=== PATIENT | male | born 1965 | race Caucasian/White ===

== ENCOUNTER 2016-05-13 15:00 | Inpatient (IN) | payer OTHER ==
[2016-05-13 14:40] VITALS: BP 152/91; PULSE 88; RESP 18; TEMP 97.4; O2SAT 95
[~2016-05-13 15:00] MED LIST: AMBI5TAB PO; AMLO10 PO; BACI500O2 TOP; BISO10TA2 PO; CLON.1 PO; CYCL1TAB29 PO; DILA2TAB2 PO; DILA4TAB2 PO; DOCU1CAP39 PO; ENAL1.25 IV PUSH; ENOX30P SQ; FAMO20TA2 PO; HEPAF100P IVF; HYDR-3366 PO; HYDR1INJ IV PUSH; IPRASOL INH; LACT PO; LYRI75CA PO; METO-309 PO; NSFLUSH5 IVF; NYST10007 TOPICAL; ONDA4INJ2 IV; SENN8.6T15 PO
[2016-05-13] MEDS ORDERED: SODIUM CHLORIDE 0.9% FLUSH 5 ML FLUSH IVF PRN ×2 (15:45→16:30)
[2016-05-13] MEDS ORDERED: ENALAPRILAT 1.25 MG/ML VIAL IV PRN (15:45)
[2016-05-13] MEDS ORDERED: ONDANSETRON HCL 4 MG/2 ML VIAL IV PRN (15:45)
[2016-05-13] MEDS ORDERED: SENNOSIDES 8.6 MG TAB PO PRN (16:00)
[2016-05-13] MEDS ORDERED: HEPARIN SOD PF 100 UNITS/ML VIAL IVF PRN (16:00)
[2016-05-13] MEDS ORDERED: RESP: ALBUTEROL 2.5 MG/IPRATROPIUM 0.5 MG NEB (PRN) NEB (16:15)
[2016-05-13] MEDS ORDERED: PILL SPLITTER OTHER PRN ×2 (16:15→18:45)
[2016-05-13] MEDS ORDERED: ACETAMINOPHEN/HYDROcodone 325 MG/7.5 MG TAB PO PRN (17:15)
[2016-05-13] MEDS ORDERED: HYDROmorphone HCL 4 MG TAB PO PRN (17:15)
[2016-05-13] MEDS ORDERED: oxyCODONE/ACETAMINOPHEN 7.5 MG/325 MG TAB PO PRN (17:30)
[2016-05-13] MEDS: LACTOBACILLUS ACIDOPHILUS TAB PO SCH (18:00)
[2016-05-13 20:00] VITALS: BP 159/90; PULSE 104; RESP 17; TEMP 98; O2SAT 98
[2016-05-13] MEDS: DOCUSATE SODIUM 100 MG CAP PO SCH (20:05)
[2016-05-13] MEDS: FAMOTIDINE 20 MG TAB PO SCH (20:05)
[2016-05-13] MEDS: PREGABALIN 75 MG CAP PO SCH (20:05)
[2016-05-13] MEDS: ENOXAPARIN SODIUM 30 MG/0.3 ML SYRINGE SQ SCH (20:05)
[2016-05-13] MEDS: METOPROLOL TARTRATE 50 MG TAB PO SCH (20:06)
[2016-05-13] MEDS: oxyCODONE/ACETAMINOPHEN 7.5 MG/325 MG TAB PO SCH (20:06)
[2016-05-13] MEDS: METHOCARBAMOL 500 MG TAB PO SCH (20:06)
[2016-05-13] MEDS: NYSTATIN 100,000 U/GM PWD 15 GM BTL TOPICAL SCH (20:08)
[2016-05-13] MEDS: CYCLOBENZAPRINE HCL 10 MG TAB PO SCH ×2 (20:09→23:19)
[2016-05-13] MEDS: cloNIDine HCL 0.1 MG TAB PO SCH (20:11)
[2016-05-13] MEDS ORDERED: DOCUSATE SODIUM 100 MG CAP PO SCH (21:00)
[2016-05-14] VITALS: BP 140/91; PULSE 85; RESP 17; TEMP 97.9; O2SAT 94
[2016-05-14] MEDS: METHOCARBAMOL 500 MG TAB PO SCH ×6 (00:07→20:14)
[2016-05-14] MEDS: oxyCODONE/ACETAMINOPHEN 7.5 MG/325 MG TAB PO SCH ×6 (00:08→20:14)
[2016-05-14 04:00] VITALS: BP 176/95; PULSE 84; RESP 17; TEMP 96.7; O2SAT 98
[2016-05-14 04:46] LABS: AUTOMATED NEUTROPHIL # 4.7 TH/MM3 (1.8-7.7); BASOPHIL # 0.1 TH/MM3 (0-0.2); BASOPHIL % 0.9 % (0.0-2.0); EOSINOPHIL # 0.2 TH/MM3 (0-0.4); EOSINOPHIL % 3.4 % (0.0-4.0); HEMATOCRIT 27.8 % (39.0-51.0); HEMO FLAGS DIFF FINAL; LYMPH % 22.7 % (9.0-44.0); LYMPHOCYTE # 1.6 TH/MM3 (1.0-4.8); MEAN CELL VOLUME 86.8 FL (80.0-100.0); MEAN CORPUSCULAR HEMOGLOBIN 29.5 PG (27.0-34.0); MONO % 7.9 % (0.0-8.0); NEUT % 65.1 % (16.0-70.0); PLATELET COUNT 379 TH/MM3 (150-450); RED CELL DISTRIBUTION WIDTH 14.3 % (11.6-17.2); WHITE BLOOD COUNT 7.2 TH/MM3 (4.0-11.0)
[2016-05-14 05:13] LABS: ALKALINE PHOSPHATASE 110 U/L (45-117); ALT (GPT) 18 U/L (12-78); ANION GAP 9 MEQ/L (5-15); AST (GOT) 19 U/L (15-37); BICARBONATE 29.2 MEQ/L (21.0-32.0); BLOOD UREA NITROGEN 17 MG/DL (7-18); CHLORIDE 101 MEQ/L (98-107); GLOMERULAR FILTRATION RATE 87 ML/MIN (>89); POTASSIUM 3.9 MEQ/L (3.5-5.1); SODIUM (NA) 139 MEQ/L (136-145); TOTAL BILIRUBIN ADULT 0.4 MG/DL (0.2-1.0)
--- NOTE | 2016-05-14 06:47 | PD.ORT.PN ---
Subjective Subjective Remarks s/p right tibial plateau ORIF s/p right femur IMN s/p left ankle ORIF s/p- left calcaneus ORIF with free flap s/p Ligamentous repair left knee with exfix s/p ligamentous repair with external fixator left elbow doing well. states pain controlled. no complaints. Objective Vitals Vital Signs Date Time Temp Pulse Resp B/P Pulse Ox O2 Delivery O2 Flow Rate FiO2 05/14/16 04:00 96.7 84 17 176/95 98 05/14/16 00:00 97.9 85 17 140/91 94 05/13/16 20:00 98.0 104 17 159/90 98 05/13/16 14:40 97.4 88 18 152/91 95 I/O 05/13/16 05/13/16 05/13/16 05/14/16 05/14/16 05/14/16 07:00 15:00 23:00 07:00 15:00 23:00 Intake Total 840 ml Output Total 960 ml Balance -120 ml Intake Oral 840 ml Output Urine Total 960 ml # Bowel Movements 0 Result Diagram: 05/14/16 0435 05/14/16 0435 Objective Remarks LUE: +elbow exfix. incision clean and dry. intact. NVI distally. LLE: +knee exfix. knee incision healed well. lateral ankle incision healed well and sutures in place. medial skin flap in place and appears healthy. moderate hematoma superiorly. ankle/foot everted. RLE: incisions healed well. nvi distally. + knee brace Assessment & Plan Assessment and Plan 1) s/p right femur IMN - 5w2d (04/07/16) 2) s/p right tibial plateau ORIF - 5w (04/09/16) 3) s/p ligamentous repair with external fixator left elbow - 4w4d (04/12/16) 4) s/p left ankle ORIF - 4w2d (04/14/16) s/p Ligamentous repair left knee with exfix 5) s/p- left calcaneus ORIF with free flap -NWB BLE -will unlock elbow exfix today to arrange for ROM of elbow -will begin daily dressing changes of left calcaneus with bacitracin/xeroform -surgery today for application of exfix to left ankle/foot -sign consents Diego Cochran May 14, 2016 06:47
[2016-05-14] MEDS ORDERED: SODIUM CHLORID 0.9% 500 ML IV SCH (07:15)
[2016-05-14] MEDS ORDERED: INSULIN HUMAN REGULAR 1,000 UNITS/10 ML VIAL SQ PRN (07:15)
[2016-05-14] MEDS ORDERED: METOPROLOL TARTRATE 25 MG TAB PO PRN (07:15)
[2016-05-14] MEDS: HYDROmorphone HCL PF 1 MG/ML VIAL IV PRN ×2 (07:29→17:06)
[2016-05-14 07:48] VITALS: BP 142/82; PULSE 87; RESP 17; TEMP 97.6; O2SAT 97
[2016-05-14] MEDS: BISOPROLOL FUMARATE 5 MG TAB PO SCH (08:26)
[2016-05-14] MEDS: HYDROCHLOROTHIAZIDE 25 MG TAB PO SCH (08:26)
[2016-05-14] MEDS: LACTATED RINGER'S 1000 ML IV SCH (08:31)
[2016-05-14] MEDS: ENOXAPARIN SODIUM 30 MG/0.3 ML SYRINGE SQ SCH ×2 (09:00→21:48)
[2016-05-14] MEDS: LACTOBACILLUS ACIDOPHILUS TAB PO SCH ×3 (09:00→15:58)
[2016-05-14] MEDS: NYSTATIN 100,000 U/GM PWD 15 GM BTL TOPICAL SCH ×2 (09:00→21:00)
[2016-05-14] MEDS: SODIUM CHLORIDE 0.9% FLUSH 5 ML FLUSH IVF SCH (09:00)
[2016-05-14] MEDS: DOCUSATE SODIUM 100 MG CAP PO SCH ×2 (09:00→21:48)
[2016-05-14] MEDS: PREGABALIN 75 MG CAP PO SCH ×2 (09:00→21:48)
[2016-05-14] MEDS ORDERED: NON-FORMULARY DRUG (Bisoprolol-Hydrochlorothiazide 1 TAB) PO SCH (09:00)
[2016-05-14] MEDS: FAMOTIDINE 20 MG TAB PO SCH ×2 (09:00→21:48)
[2016-05-14] MEDS: METOPROLOL TARTRATE 50 MG TAB PO SCH ×2 (09:00→21:48)
[2016-05-14] MEDS ORDERED: HEPARIN SOD PF 100 UNITS/ML VIAL IVF SCH (09:00)
[2016-05-14] MEDS: cloNIDine HCL 0.1 MG TAB PO SCH ×2 (09:00→21:48)
[2016-05-14] MEDS ORDERED: ceFAZolin 2 GM PREMIX 50 ML ONE (11:12)
[2016-05-14] MEDS ORDERED: SODIUM CHLORIDE 0.9% INJ 100 ML ONE (11:12)
[2016-05-14] MEDS ORDERED: VANCOMYCIN HCL 1000 MG VIAL ONE (11:12)
[2016-05-14] MEDS ORDERED: FAMOTIDINE 20 MG/2 ML VIAL ONE (11:13)
[2016-05-14] MEDS ORDERED: MIDAZOLAM HCL 2 MG/2 ML VIAL ONE (11:13)
[2016-05-14] MEDS ORDERED: HYDR-3366 PO (11:19)
[2016-05-14] MEDS ORDERED: XARE10TA PO (11:19)
[2016-05-14] MEDS ORDERED: GENTAMICIN SULFATE 80 MG/2 ML VIAL ONE (11:25)
--- NOTE | 2016-05-14 11:28 | HHI.PR ---
Subjective Subjective Notes Pain controlled. Asking when he can go home. Objective Vitals/I&O Vital Signs Date Time Temp Pulse Resp B/P Pulse Ox O2 Delivery O2 Flow Rate FiO2 05/14/16 07:48 97.6 87 17 142/82 97 Labs Laboratory Tests Test 05/14/16 04:35 White Blood Count 7.2 Red Blood Count 3.20 Hemoglobin 9.4 Hematocrit 27.8 Mean Corpuscular Volume 86.8 Mean Corpuscular Hemoglobin 29.5 Mean Corpuscular Hemoglobin 34.0 Concent Red Cell Distribution Width 14.3 Platelet Count 379 Mean Platelet Volume 7.3 Neutrophils (%) (Auto) 65.1 Lymphocytes (%) (Auto) 22.7 Monocytes (%) (Auto) 7.9 Eosinophils (%) (Auto) 3.4 Basophils (%) (Auto) 0.9 Neutrophils # (Auto) 4.7 Lymphocytes # (Auto) 1.6 Monocytes # (Auto) 0.6 Eosinophils # (Auto) 0.2 Basophils # (Auto) 0.1 CBC Comment DIFF FINAL Differential Comment Sodium Level 139 Potassium Level 3.9 Chloride Level 101 Carbon Dioxide Level 29.2 Anion Gap 9 Blood Urea Nitrogen 17 Creatinine 0.92 Estimat Glomerular Filtration 87 Rate Random Glucose 99 Calcium Level 8.8 Total Bilirubin 0.4 Aspartate Amino Transf 19 (AST/SGOT) Alanine Aminotransferase 18 (ALT/SGPT) Alkaline Phosphatase 110 Total Protein 7.4 Albumin 2.6 Narrative Exam GENERAL: 51 year old well-nourished, well-developed male lying in bed. SKIN: Warm and dry. HEAD: Normocephalic. ENT: No nasal bleeding or discharge. Mucous membranes pink and moist. NECK: Trachea midline. No JVD. CARDIOVASCULAR: Regular rate and rhythm. RESPIRATORY: VENT: No accessory muscle use. Lungs are clear to auscultation. Breath sounds equal bilaterally. GASTROINTESTINAL: Abdomen soft, round, nondistended, nontender. + BS. MUSCULOSKELETAL: Extremities without cyanosis, generalized edema noted. LEFT Elbow Ex -fx in place, improved ROM since screws loosened. Ex-fix to LEFT leg, with medial skin flap in place. RIGHT knee immobilizer. MAEW. + peripheral pulses, + sensation, good cap refill. NEUROLOGICAL: A&O, pleasant and cooperative. A/P Assessment and Plan INJURIES: Scalp lac LEFT elbow dislocation Pubic symphysis diathesis Bilateral SI joint separation RIGHT femur fx RIGHT tib-fib fx RIGHT ankle degloving wound LEFT open femur fx LEFT calcaneus fx LEFT ankle DEGLOVING injury 04/07: Closed reduction of LEFT elbow 04/09: IM nailing RIGHT femur Closed reduction and splint RIGHT tibia fx I&D LEFT open femur fx w/ wound vac I&D LEFT calcaneal fx w/ wound vac 04/12: LEFT elbow EX fix placement I&D w/wound vac LEFT calcaneus and LEFT thigh 04/14: I&D and Ligament repair to LEFT knee ORIF LEFT ankle I&D LEFT calcaneus I&D LEFT distal femur fx Application of wound vac to LEFT foot 04/19: I&D LEFT calcaneus and foot with wound vac change 04/26: LEFT elbow manipulation with ex-fix revision I&D LEFT calcaneus with wound vac change 04/30: I&D LEFT calcaneus with wound vac change 05/06: LEFT calcaneus ORIF with free flap at [facility] Diet: Regular, Low residue diet. Pulm: IS at bedside and encouraged to use. Pain management: Percocet, Lyrica, Dilaudid IV for breakthrough. Pain controlled , 0/10 at this time. Activity: BR. (NWB LUE; NWB BLE) PT and OT evaluating. GI: Pepcid Bowel regimen: Colace. Sennakot. DVT: Plexi-Pulses, Lovenox SQ. PICC 05/01. Case management consulted for discharge planning when Ortho clears. Patient requests to go home, states he has multiple DME and home health resources that will assist with care. He does not want to go to a SNF. Vu denied patient. Attending Statement Patient doing very well post the reconstruction of the left heel with microvascular pedicle graft Patient will be ready for discharge home once we can make arrangements for hospital bed at home and physical therapy as patient will need The exam, history, and the medical decision-making described in the above note were completed with the assistance of the mid-level provider. I reviewed and agree with the findings presented. I attest that I had a [id number] encounter with the patient on the same day, and personally performed and documented my assessment and findings in the medical record. Evens Baca May 14, 2016 11:28 Pj Mas MD May 15, 2016 12:48
[2016-05-14] MEDS ORDERED: BACITRACIN TOP OINT 15 GM TUBE ONE (11:50)
[2016-05-14] MEDS: LACTATED RINGER'S 1000 ML INJ 1,000 ML IV SCH ×2 (11:55→21:50)
[2016-05-14] MEDS ORDERED: PROPOFOL 200 MG/20 ML AMP IV ONE (12:00)
[2016-05-14] MEDS ORDERED: ONDANSETRON HCL 4 MG/2 ML VIAL IV PUSH ONE (12:00)
--- NOTE | 2016-05-14 12:11 | PD.OP ---
cc: Gwyn Russell MD Operative Report Date of Surgery: May 14, 2016 Preoperative Diagnosis: Open left ankle fracture dislocation Postoperative Diagnosis: Procedure: External fixation of left ankle Anesthesia: Gen. Surgeon: Gwyn Russell Oil Well Perforator Operator(s): TAWANA Jaimes PA-C The surgical procedure was assisted by my physician clinical trials assistant. My P.A. presence was necessary throughout this case for the manipulation and positioning of the surgical extremity. My P.A. was assisting me throughout the duration of this procedure. The skill set of a physician clinical trials assistant was medically necessary to complete this procedure. During the surgical case the neurosurgical nurse was working at the back table and the physician clinical trials assistant was directly assisting me. Operation and Findings: This patient sustained an injury resulting in unstable open fractures of the distal tibia and fibula previously treated with open reduction internal fixation. He essentially had a free tissue transfer flap on left ankle. Patient cannot be placed into a splint or boot because of the free tissue transfer. Patient was noted to be developing a contracture of his ankle. Risk and benefits of surgery were discussed in depth with patient and informed consent was confirmed. Surgical site was marked. Patient was brought to operating room and placed on the OR table. Patient was given IV sedation and GETA. Patient received IV antibiotics and timeout procedure was performed. Operative leg was prepped with alcohol followed by Hibiclens and draped in the usual sterile fashion.resulting in left tibia-fibula fractures. Timeout procedure was performed. The procedure began with placement of external fixation pins. Two percutaneous incisions were made. Pin sites were pre-drilled. Pins were placed in the first and fifth metatarsals. An external fixator was now constructed. The external fixator was connected to the pre-existing left leg external fixator bars. Fluoroscopy was used to confirm appropriate pin placement. Next attention was turned to traction with manipulation of the leg. The ankle was manipulated under fluoroscopy. Excellent reduction was achieved and the external fixator was tightened. Sterile dressings were applied. Next the left elbow external fixator was evaluated. Patient has a hinged external fixator on the elbow. The hinge was unlocked to allow for motion.The patient was awakened and transferred to Recovery in stable condition. Gwyn Russell MD May 14, 2016 12:11
[2016-05-14] MEDS ORDERED: fentaNYL CITRATE 250 MCG/5 ML AMP ONE (12:19)
[2016-05-14] MEDS ORDERED: DO NOT ADM ANY ANTICOAGULANT DRUGS XX PRN (12:30)
--- NOTE | 2016-05-14 12:38 | RADRPT ---
EXAM DATE/TIME: 05/14/2016 11:44 [place] COMPARISON: ANKLE LEFT LIMITED (AP&LAT), April 14, 2016, 8:37. INDICATIONS : Surgical repair left ankle MEDICAL HISTORY : None. SURGICAL HISTORY : None. ENCOUNTER: Subsequent ACUITY: 1 week PAIN SCORE: Non-responsive. LOCATION: Left ANKLE FINDINGS: There are postsurgical changes with operative reduction and internal fixation of the previously seen fracture. The alignment is anatomic. CONCLUSION: Postsurgical changes as above. Lazaro Drake MD on May 14, 2016 at 12:36 Board Certified Radiologist. This report was verified electronically.
[2016-05-14] MEDS ORDERED: *morphine SULFATE 8 MG/ML PERIprocedure ONLY ONE (12:57)
[2016-05-14] MEDS: CYCLOBENZAPRINE HCL 10 MG TAB PO SCH ×2 (14:00→21:55)
[2016-05-14 16:00] VITALS: BP 146/90; PULSE 82; RESP 16; TEMP 97; O2SAT 98
[2016-05-14 20:00] VITALS: BP 143/81; PULSE 83; RESP 16; TEMP 96.9; O2SAT 97
[2016-05-14] MEDS: BACITRACIN TOP OINT 15 GM TUBE TOP SCH (23:00)
[2016-05-15] VITALS: BP 135/87; PULSE 82; RESP 17; TEMP 97.6; O2SAT 98
[2016-05-15] MEDS: METHOCARBAMOL 500 MG TAB PO SCH ×6 (00:10→20:20)
[2016-05-15] MEDS: oxyCODONE/ACETAMINOPHEN 7.5 MG/325 MG TAB PO SCH ×6 (00:12→20:21)
[2016-05-15] MEDS: CYCLOBENZAPRINE HCL 10 MG TAB PO SCH ×2 (05:01→07:55)
[2016-05-15 05:54] LABS: HEMATOCRIT 26.5 % (39.0-51.0); REVIEW FLAG FINAL
[2016-05-15] MEDS: LACTATED RINGER'S 1000 ML IV SCH (07:15)
[2016-05-15 07:39] VITALS: BP 153/88; PULSE 76; RESP 17; TEMP 97.5; O2SAT 97
[2016-05-15] MEDS: LACTATED RINGER'S 1000 ML INJ 1,000 ML IV SCH (07:55)
[2016-05-15] MEDS: METOPROLOL TARTRATE 50 MG TAB PO SCH ×2 (08:11→20:45)
[2016-05-15] MEDS: DOCUSATE SODIUM 100 MG CAP PO SCH ×2 (08:11→20:20)
[2016-05-15] MEDS: FAMOTIDINE 20 MG TAB PO SCH ×2 (08:11→20:20)
[2016-05-15] MEDS: cloNIDine HCL 0.1 MG TAB PO SCH ×2 (08:11→20:45)
[2016-05-15] MEDS: BISOPROLOL FUMARATE 5 MG TAB PO SCH (08:13)
[2016-05-15] MEDS: HYDROCHLOROTHIAZIDE 25 MG TAB PO SCH (08:13)
[2016-05-15] MEDS: LACTOBACILLUS ACIDOPHILUS TAB PO SCH ×3 (08:15→18:50)
[2016-05-15] MEDS: PREGABALIN 75 MG CAP PO SCH ×2 (08:15→20:21)
[2016-05-15] MEDS: SODIUM CHLORIDE 0.9% FLUSH 5 ML FLUSH IVF SCH (08:17)
[2016-05-15] MEDS: ENOXAPARIN SODIUM 30 MG/0.3 ML SYRINGE SQ SCH ×2 (08:18→20:20)
[2016-05-15] MEDS: BACITRACIN TOP OINT 15 GM TUBE TOP SCH ×2 (08:18→20:56)
[2016-05-15] MEDS: NYSTATIN 100,000 U/GM PWD 15 GM BTL TOPICAL SCH ×2 (08:19→20:55)
[2016-05-15] MEDS: SENNOSIDES 8.6 MG TAB PO SCH (09:00)
--- NOTE | 2016-05-15 09:12 | PD.ORT.PN ---
Subjective Subjective Remarks Fairly comfortable. No significant pain. Lying in bed. Status post free flap, left ankle and external fixator modifications yesterday Objective Vitals Vital Signs Date Time Temp Pulse Resp B/P Pulse Ox O2 Delivery O2 Flow Rate FiO2 05/15/16 07:39 97.5 76 17 153/88 97 05/15/16 00:00 97.6 82 17 135/87 98 05/14/16 20:00 96.9 83 16 143/81 97 05/14/16 16:00 97.0 82 16 146/90 98 05/14/16 13:15 98.1 78 14 159/88 100 Nasal Cannula 2 05/14/16 13:00 78 14 151/89 99 Nasal Cannula 2 05/14/16 12:45 78 14 146/84 98 Nasal Cannula 4 05/14/16 12:30 78 14 150/79 100 Nasal Cannula 4 05/14/16 12:15 77 14 102/65 99 Nasal Cannula 4 05/14/16 12:10 98.1 79 14 100/70 98 Nasal Cannula 4 I/O 05/14/16 05/14/16 05/14/16 05/15/16 05/15/16 05/15/16 07:00 15:00 23:00 07:00 15:00 23:00 Intake Total 360 ml 600 ml 1369 ml 240 ml Output Total 700 ml 5 ml 600 ml Balance -340 ml 595 ml 1369 ml -360 ml Intake Oral 360 ml 360 ml 240 ml IV Total 1009 ml Other 600 ml Output Urine Total 700 ml 600 ml Other 5 ml # Voids 1 # Bowel Movements 0 0 0 Result Diagram: 05/15/16 0516 05/14/16 0435 Objective Remarks LUE: +elbow exfix. incision clean and dry. intact. NVI distally. Adjustment made yesterday allows some limited motion of the left elbow. I'll pain LLE: +knee exfix. knee incision healed well. lateral ankle incision healed well and sutures in place. medial skin flap in place and appears healthy. Mild hematoma superiorly. ankle/foot everted. RLE: incisions healed well. nvi distally. + knee brace Assessment & Plan Assessment and Plan 1) s/p right femur IMN - 38d (04/07/16) 2) s/p right tibial plateau ORIF - 36d (04/09/16) 3) s/p ligamentous repair with external fixator left elbow -33d (04/12/16) 4) s/p left ankle ORIF - 31d(04/14/16) s/p Ligamentous repair left knee with exfix 5) s/p- left calcaneus ORIF with free flap 6) s/p left ankle ex-fix, adjust left elbow X fix, POD #1 -NWB BLE ROM of elbow daily dressing changes of left calcaneus with bacitracin/xeroform Lovenox. Discharge planning Stable orthopedically X-rays look stable Juwan Raphael MD May 15, 2016 09:12
[2016-05-15] MEDS ORDERED: ZOLPIDEM TARTRATE 10 MG TAB PO PRN (12:00)
[2016-05-15 12:05] VITALS: BP 145/81; PULSE 75; RESP 17; TEMP 97.3; O2SAT 96
--- NOTE | 2016-05-15 12:40 | HHI.PR ---
Subjective Subjective Notes Pain level 0. Difficulty sleeping. Objective Vitals/I&O Vital Signs Date Time Temp Pulse Resp B/P Pulse Ox O2 Delivery O2 Flow Rate FiO2 05/15/16 07:39 97.5 76 17 153/88 97 05/14/16 13:15 Nasal Cannula 2 Labs Laboratory Tests Test 05/15/16 05:16 Hemoglobin 8.9 Hematocrit 26.5 Narrative Exam GENERAL: 51 year old well-nourished, well-developed male lying in bed. SKIN: Warm and dry. HEAD: Normocephalic. ENT: No nasal bleeding or discharge. Mucous membranes pink and moist. NECK: Trachea midline. No JVD. CARDIOVASCULAR: Regular rate and rhythm. RESPIRATORY: VENT: No accessory muscle use. Lungs are clear to auscultation. Breath sounds equal bilaterally. GASTROINTESTINAL: Abdomen soft, round, nondistended, nontender. + BS. MUSCULOSKELETAL: Extremities without cyanosis, generalized edema noted. LEFT Elbow Ex -fx in place, improved ROM since screws loosened. Ex-fix to LEFT leg, with medial skin flap in place. RIGHT knee immobilizer. MAEW. + peripheral pulses, + sensation, good cap refill. NEUROLOGICAL: A&O, pleasant and cooperative. A/P Assessment and Plan INJURIES: Scalp lac LEFT elbow dislocation Pubic symphysis diathesis Bilateral SI joint separation RIGHT femur fx RIGHT tib-fib fx RIGHT ankle degloving wound LEFT open femur fx LEFT calcaneus fx LEFT ankle DEGLOVING injury 04/07: Closed reduction of LEFT elbow 04/09: IM nailing RIGHT femur Closed reduction and splint RIGHT tibia fx I&D LEFT open femur fx w/ wound vac I&D LEFT calcaneal fx w/ wound vac 04/12: LEFT elbow EX fix placement I&D w/wound vac LEFT calcaneus and LEFT thigh 04/14: I&D and Ligament repair to LEFT knee ORIF LEFT ankle I&D LEFT calcaneus I&D LEFT distal femur fx Application of wound vac to LEFT foot 04/19: I&D LEFT calcaneus and foot with wound vac change 04/26: LEFT elbow manipulation with ex-fix revision I&D LEFT calcaneus with wound vac change 04/30: I&D LEFT calcaneus with wound vac change 05/06: LEFT calcaneus ORIF with free flap at [facility] Diet: Regular, Low residue diet. Pulm: IS at bedside and encouraged to use. Pain management: Percocet, Lyrica, Dilaudid IV for breakthrough. Pain controlled , 0/10 at this time. Activity: BR. (NWB LUE; NWB BLE) PT and OT evaluating. GI: Pepcid Bowel regimen: Colace. Sennakot. DVT: Plexi-Pulses, Lovenox SQ. PICC /. Dressing to left heel removed and evaluated. Skin flap appears healthy and graft site to right thigh is healing well. Wound orders: Cleanse heel with soap and water daily and apply Xeroform and wrap with dry Kerlix. Ambien added for insomnia. Case management consulted for discharge planning when Ortho clears. Patient requests to go home, states he has multiple DME and home health resources that will assist with care. He does not want to go to a SNF. Vu denied patient. Evens Baca May 15, 2016 12:40
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
[2016-05-15] MEDS: HYDROmorphone HCL PF 1 MG/ML VIAL IV PRN ×2 (13:20→19:40)
[2016-05-15 15:55] VITALS: BP 160/85; PULSE 82; RESP 17; TEMP 97; O2SAT 96
[2016-05-15 20:00] VITALS: BP 144/87; PULSE 78; RESP 18; TEMP 96.4; O2SAT 96
[2016-05-16] VITALS: BP 145/82; PULSE 77; RESP 18; TEMP 97.6; O2SAT 100
[2016-05-16] MEDS: METHOCARBAMOL 500 MG TAB PO SCH ×6 (00:10→20:25)
[2016-05-16] MEDS: oxyCODONE/ACETAMINOPHEN 7.5 MG/325 MG TAB PO SCH ×6 (00:13→20:25)
[2016-05-16 04:00] VITALS: BP 167/91; PULSE 76; RESP 18; TEMP 97.6; O2SAT 98
[2016-05-16 07:12] VITALS: BP 171/96; PULSE 84; RESP 18; TEMP 97.8; O2SAT 97
[2016-05-16] MEDS: ENOXAPARIN SODIUM 30 MG/0.3 ML SYRINGE SQ SCH ×2 (07:50→20:24)
[2016-05-16] MEDS: METOPROLOL TARTRATE 50 MG TAB PO SCH ×2 (07:50→20:24)
[2016-05-16] MEDS: HYDROCHLOROTHIAZIDE 25 MG TAB PO SCH (07:51)
[2016-05-16] MEDS: cloNIDine HCL 0.1 MG TAB PO SCH ×2 (07:52→20:24)
[2016-05-16] MEDS: PREGABALIN 75 MG CAP PO SCH ×2 (07:52→20:24)
[2016-05-16] MEDS: FAMOTIDINE 20 MG TAB PO SCH ×2 (07:52→20:24)
[2016-05-16] MEDS: LACTOBACILLUS ACIDOPHILUS TAB PO SCH ×3 (07:52→17:31)
[2016-05-16] MEDS: SENNOSIDES 8.6 MG TAB PO SCH (07:52)
[2016-05-16] MEDS: BISOPROLOL FUMARATE 5 MG TAB PO SCH (07:53)
[2016-05-16] MEDS: DOCUSATE SODIUM 100 MG CAP PO SCH ×2 (08:02→20:24)
[2016-05-16] MEDS: SODIUM CHLORIDE 0.9% FLUSH 5 ML FLUSH IVF SCH (09:00)
[2016-05-16] MEDS: NYSTATIN 100,000 U/GM PWD 15 GM BTL TOPICAL SCH ×2 (09:00→21:00)
[2016-05-16] MEDS: BACITRACIN TOP OINT 15 GM TUBE TOP SCH ×2 (09:00→21:00)
[2016-05-16 12:15] VITALS: BP 129/76; PULSE 89; RESP 17; TEMP 97.8; O2SAT 97
--- NOTE | 2016-05-16 12:23 | HHI.PR ---
Subjective Subjective Notes Feeling well. Awaiting Ortho's determination on when patient can go home. Objective Vitals/I&O Vital Signs Date Time Temp Pulse Resp B/P Pulse Ox O2 Delivery O2 Flow Rate FiO2 05/16/16 07:12 97.8 84 18 171/96 97 05/14/16 13:15 Nasal Cannula 2 Narrative Exam GENERAL: 51 year old well-nourished, well-developed male lying in bed. SKIN: Warm and dry. HEAD: Normocephalic. ENT: No nasal bleeding or discharge. Mucous membranes pink and moist. NECK: Trachea midline. No JVD. CARDIOVASCULAR: Regular rate and rhythm. RESPIRATORY: VENT: No accessory muscle use. Lungs are clear to auscultation. Breath sounds equal bilaterally. GASTROINTESTINAL: Abdomen soft, round, nondistended, nontender. + BS. MUSCULOSKELETAL: Extremities without cyanosis, generalized edema noted. LEFT Elbow Ex -fx in place, improved ROM since screws loosened. Ex-fix to LEFT leg, with medial skin flap in place. RIGHT knee immobilizer. MAEW. + peripheral pulses, + sensation, good cap refill. NEUROLOGICAL: A&O, pleasant and cooperative. A/P Assessment and Plan INJURIES: Scalp lac LEFT elbow dislocation Pubic symphysis diathesis Bilateral SI joint separation RIGHT femur fx RIGHT tib-fib fx RIGHT ankle degloving wound LEFT open femur fx LEFT calcaneus fx LEFT ankle DEGLOVING injury 04/07: Closed reduction of LEFT elbow 04/09: IM nailing RIGHT femur Closed reduction and splint RIGHT tibia fx I&D LEFT open femur fx w/ wound vac I&D LEFT calcaneal fx w/ wound vac 04/12: LEFT elbow EX fix placement I&D w/wound vac LEFT calcaneus and LEFT thigh 04/14: I&D and Ligament repair to LEFT knee ORIF LEFT ankle I&D LEFT calcaneus I&D LEFT distal femur fx Application of wound vac to LEFT foot 04/19: I&D LEFT calcaneus and foot with wound vac change 04/26: LEFT elbow manipulation with ex-fix revision I&D LEFT calcaneus with wound vac change 04/30: I&D LEFT calcaneus with wound vac change 05/06: LEFT calcaneus ORIF with free flap at [facility] Diet: Regular, Low residue diet. Pulm: IS at bedside and encouraged to use. Pain management: Percocet, Lyrica, Dilaudid IV for breakthrough. Ambien for insomnia. Activity: BR. (NWB LUE; NWB BLE) PT and OT evaluating. GI: Pepcid Bowel regimen: Colace. Sennakot. DVT: Plexi-Pulses, Lovenox SQ. PICC 05/01. Dressing to left heel removed and evaluated. Skin flap appears healthy and graft site to right thigh is healing well. Wound orders: Cleanse heel with soap and water daily and apply Xeroform and wrap with dry Kerlix. Case management consulted for discharge planning when Ortho clears. Patient requests to go home, states he has multiple DME and home health resources that will assist with care. He does not want to go to a SNF. Vu denied patient. Attending Statement The exam, history, and the medical decision-making described in the above note were completed with the assistance of the mid-level provider. I reviewed and agree with the findings presented. I attest that I had a [id number] encounter with the patient on the same day, and personally performed and documented my assessment and findings in the medical record. Evens Baca May 16, 2016 12:23 Pj Mas MD May 18, 2016 15:40
[2016-05-16 15:50] VITALS: BP 147/74; PULSE 87; RESP 18; TEMP 97.8; O2SAT 96
[2016-05-16] MEDS: HYDROmorphone HCL PF 1 MG/ML VIAL IV PRN (17:29)
[2016-05-16 20:00] VITALS: BP 143/84; PULSE 80; RESP 18; TEMP 98.9; O2SAT 96
[2016-05-17] VITALS: BP 148/79; PULSE 77; RESP 18; TEMP 98.9; O2SAT 95
[2016-05-17] MEDS: METHOCARBAMOL 500 MG TAB PO SCH ×6 (00:25→20:11)
[2016-05-17] MEDS: oxyCODONE/ACETAMINOPHEN 7.5 MG/325 MG TAB PO SCH ×6 (00:25→20:11)
[2016-05-17 08:00] VITALS: BP 137/85; PULSE 77; RESP 16; TEMP 97.8; O2SAT 97
[2016-05-17] MEDS ORDERED: TRANMIS2 (08:25)
[2016-05-17] MEDS ORDERED: MISC-163 (08:25)
[2016-05-17] MEDS ORDERED: WHEEMIS3 (08:26)
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
[2016-05-17] MEDS: FAMOTIDINE 20 MG TAB PO SCH ×2 (08:51→20:12)
[2016-05-17] MEDS: PREGABALIN 75 MG CAP PO SCH ×2 (08:51→20:09)
[2016-05-17] MEDS: LACTOBACILLUS ACIDOPHILUS TAB PO SCH ×3 (08:51→17:38)
[2016-05-17] MEDS: DOCUSATE SODIUM 100 MG CAP PO SCH ×2 (08:51→20:12)
[2016-05-17] MEDS: ENOXAPARIN SODIUM 30 MG/0.3 ML SYRINGE SQ SCH ×2 (08:51→20:12)
[2016-05-17] MEDS: BISOPROLOL FUMARATE 5 MG TAB PO SCH (08:51)
[2016-05-17] MEDS: HYDROCHLOROTHIAZIDE 25 MG TAB PO SCH (08:52)
[2016-05-17] MEDS: METOPROLOL TARTRATE 50 MG TAB PO SCH ×2 (08:52→20:09)
[2016-05-17] MEDS: SENNOSIDES 8.6 MG TAB PO SCH (08:53)
[2016-05-17] MEDS: SODIUM CHLORIDE 0.9% FLUSH 5 ML FLUSH IVF SCH (08:54)
[2016-05-17] MEDS: BACITRACIN TOP OINT 15 GM TUBE TOP SCH ×2 (08:54→20:14)
[2016-05-17] MEDS: NYSTATIN 100,000 U/GM PWD 15 GM BTL TOPICAL SCH ×2 (08:54→20:14)
[2016-05-17] MEDS: cloNIDine HCL 0.1 MG TAB PO SCH ×2 (09:00→20:11)
[2016-05-17 12:00] VITALS: BP 134/79; PULSE 76; RESP 16; TEMP 96.6; O2SAT 96
--- NOTE | 2016-05-17 12:51 | PD.ORT.PN ---
Subjective Subjective Remarks pain under control. Objective Vitals Vital Signs Date Time Temp Pulse Resp B/P Pulse Ox O2 Delivery O2 Flow Rate FiO2 05/17/16 08:00 97.8 77 16 137/85 97 05/17/16 00:00 98.9 77 18 148/79 95 05/16/16 20:00 98.9 80 18 143/84 96 05/16/16 15:50 97.8 87 18 147/74 96 I/O 05/16/16 05/16/16 05/16/16 05/17/16 05/17/16 05/17/16 07:00 15:00 23:00 07:00 15:00 23:00 Intake Total 480 ml 1200 ml 480 ml 240 ml Output Total 400 ml 750 ml Balance 80 ml 1200 ml 480 ml -510 ml Intake Oral 480 ml 1200 ml 480 ml 240 ml Output Urine Total 400 ml 750 ml # Voids 5 2 # Bowel Movements 0 1 0 0 Result Diagram: 05/15/16 0516 05/14/16 0435 Objective Remarks LUE: +elbow exfix. incision clean and dry. intact. NVI distally. Adjustment made yesterday allows some limited motion of the left elbow. LLE: +knee exfix. knee incision healed well. lateral ankle incision healed well and sutures in place. medial skin flap in place and appears healthy. Mild hematoma superiorly. ankle/foot everted. RLE: incisions healed well. nvi distally. + knee brace Assessment & Plan Assessment and Plan 1) s/p right femur IMN - 38d (04/07/16) 2) s/p right tibial plateau ORIF - 36d (04/09/16) 3) s/p ligamentous repair with external fixator left elbow -33d (04/12/16) 4) s/p left ankle ORIF - 31d(04/14/16) s/p Ligamentous repair left knee with exfix 5) s/p- left calcaneus ORIF with free flap 6) s/p left ankle ex-fix, adjust left elbow X fix, POD #1 -NWB BLE ROM of elbow daily dressing changes of left calcaneus with bacitracin/xeroform Lovenox. Discharge planning Stable orthopedically - cleared for d/c X-rays look stable -f/up dr. cabrales 2-3 weeks -f/up plastics in [place] next week [place] Redman May 17, 2016 12:51
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
[2016-05-17] MEDS ORDERED: HOSP BED1 (14:07)
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
[2016-05-17 16:00] VITALS: BP 133/97; PULSE 86; RESP 16; TEMP 97; O2SAT 98
[2016-05-17] MEDS: HYDROmorphone HCL PF 1 MG/ML VIAL IV PRN (17:39)
[2016-05-17 20:00] VITALS: BP 160/100; PULSE 71; RESP 16; TEMP 97.3; O2SAT 97
[2016-05-18] VITALS: BP 152/91; PULSE 75; RESP 16; TEMP 98.1; O2SAT 96
[2016-05-18] MEDS: oxyCODONE/ACETAMINOPHEN 7.5 MG/325 MG TAB PO SCH ×6 (00:04→20:12)
[2016-05-18] MEDS: METHOCARBAMOL 500 MG TAB PO SCH ×6 (00:04→20:13)
[2016-05-18 07:00] LABS: MEAN CELL VOLUME 86.8 FL (80.0-100.0); MEAN CORPUSCULAR HEMOGLOBIN 28.9 PG (27.0-34.0); MEAN CORPUSCULAR HGB CONC 33.3 % (32.0-36.0); PLATELET COUNT 377 TH/MM3 (150-450); RED BLOOD COUNT 3.45 MIL/MM3 (4.50-5.90); REVIEW FLAG FINAL; WHITE BLOOD COUNT 7.6 TH/MM3 (4.0-11.0)
[2016-05-18 07:22] LABS: BICARBONATE 28.4 MEQ/L (21.0-32.0); MAGNESIUM 1.9 MG/DL (1.5-2.5); POTASSIUM 3.5 MEQ/L (3.5-5.1)
[2016-05-18 08:00] VITALS: BP 168/103; PULSE 75; RESP 18; TEMP 96.4; O2SAT 98
[2016-05-18] MEDS: ENOXAPARIN SODIUM 30 MG/0.3 ML SYRINGE SQ SCH ×2 (08:15→21:48)
[2016-05-18] MEDS: SENNOSIDES 8.6 MG TAB PO SCH (08:15)
[2016-05-18] MEDS: DOCUSATE SODIUM 100 MG CAP PO SCH ×2 (08:15→21:49)
[2016-05-18] MEDS: LACTOBACILLUS ACIDOPHILUS TAB PO SCH ×3 (08:16→16:33)
[2016-05-18] MEDS: PREGABALIN 75 MG CAP PO SCH ×2 (08:16→21:48)
[2016-05-18] MEDS: HYDROCHLOROTHIAZIDE 25 MG TAB PO SCH (08:16)
--- NOTE | 2016-05-18 08:16 | PD.ORT.PN ---
Subjective Subjective Remarks pain under control. no new complaints. Objective Vitals Vital Signs Date Time Temp Pulse Resp B/P Pulse Ox O2 Delivery O2 Flow Rate FiO2 05/18/16 00:00 98.1 75 16 152/91 96 05/17/16 20:00 97.3 71 16 160/100 97 05/17/16 16:00 97.0 86 16 133/97 98 05/17/16 12:00 96.6 76 16 134/79 96 I/O 05/17/16 05/17/16 05/17/16 05/18/16 05/18/16 05/18/16 07:00 15:00 23:00 07:00 15:00 23:00 Intake Total 240 ml 840 ml 240 ml Output Total 750 ml Balance -510 ml 840 ml 240 ml Intake Oral 240 ml 840 ml 240 ml Output Urine Total 750 ml # Voids 5 1 # Bowel Movements 0 0 0 Result Diagram: 05/18/1615 05/18/1615 Objective Remarks LUE: +elbow exfix. incision clean and dry. intact. NVI distally. Adjustment made last week to allow some limited motion of the left elbow. LLE: +knee exfix. knee incision healed well. lateral ankle incision healed well and sutures in place. medial skin flap in place and appears healthy. Mild hematoma superiorly. ankle/foot everted. RLE: incisions healed well. nvi distally. + knee brace Assessment & Plan Assessment and Plan 1) s/p right femur IMN - 38d (04/07/16) 2) s/p right tibial plateau ORIF - 36d (04/09/16) 3) s/p ligamentous repair with external fixator left elbow -33d (04/12/16) 4) s/p left ankle ORIF - 31d(04/14/16) s/p Ligamentous repair left knee with exfix 5) s/p- left calcaneus ORIF with free flap 6) s/p left ankle ex-fix, adjust left elbow X fix, POD #1 -NWB BLE ROM of elbow daily dressing changes of left calcaneus with bacitracin/xeroform Lovenox. Discharge planning Stable orthopedically - cleared for d/c home. 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 He is considering buying a transport van for his f/ up visits. X-rays look stable -f/up dr. cabrales 2-3 weeks -f/up plastics in [place] next week [place] Redman May 18, 2016 08:16
[2016-05-18] MEDS: BISOPROLOL FUMARATE 5 MG TAB PO SCH (08:17)
[2016-05-18] MEDS: FAMOTIDINE 20 MG TAB PO SCH ×2 (08:17→21:48)
[2016-05-18] MEDS: METOPROLOL TARTRATE 50 MG TAB PO SCH ×2 (08:17→21:49)
[2016-05-18] MEDS: cloNIDine HCL 0.1 MG TAB PO SCH ×2 (08:17→21:49)
[2016-05-18] MEDS: NYSTATIN 100,000 U/GM PWD 15 GM BTL TOPICAL SCH ×2 (08:18→21:52)
[2016-05-18] MEDS: SODIUM CHLORIDE 0.9% FLUSH 5 ML FLUSH IVF SCH (08:18)
[2016-05-18] MEDS: BACITRACIN TOP OINT 15 GM TUBE TOP SCH (08:18)
[2016-05-18] MEDS: HYDROmorphone HCL PF 1 MG/ML VIAL IV PRN (11:02)
[2016-05-18] MEDS ORDERED: LYRI75CA PO (11:34)
[2016-05-18 12:00] VITALS: BP 137/72; PULSE 76; RESP 18; TEMP 97.4; O2SAT 97
[2016-05-18] MEDS ORDERED: AMLO10 PO (13:36)
[2016-05-18] MEDS ORDERED: MILKSUS PO (13:36)
[2016-05-18] MEDS ORDERED: DOCU1CAP39 PO (13:36)
[2016-05-18] MEDS ORDERED: METO-309 PO (13:36)
[2016-05-18] MEDS ORDERED: SENN8.6T15 PO (13:36)
[2016-05-18] MEDS ORDERED: HYDR25TA5 PO (13:36)
[2016-05-18] MEDS ORDERED: CLON.1 PO (13:36)
[2016-05-18] MEDS ORDERED: CYCL1TAB29 PO (13:45)
[2016-05-18] MEDS ORDERED: MISC-163 (13:45)
[2016-05-18] MEDS: REMOVE OLD PATCH TD SCH (15:00)
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
[2016-05-18 16:00] VITALS: BP 143/80; PULSE 72; RESP 18; TEMP 97.5; O2SAT 98
[2016-05-18 20:00] VITALS: BP 155/91; PULSE 76; RESP 16; TEMP 97.5; O2SAT 96
[2016-05-19] VITALS: BP 157/89; PULSE 75; RESP 16; TEMP 97.9; O2SAT 97
[2016-05-19] MEDS: oxyCODONE/ACETAMINOPHEN 7.5 MG/325 MG TAB PO SCH ×6 (00:20→20:22)
[2016-05-19] MEDS: METHOCARBAMOL 500 MG TAB PO SCH ×6 (00:20→20:21)
[2016-05-19 08:00] VITALS: BP 152/93; PULSE 68; RESP 18; TEMP 97.2; O2SAT 94
[2016-05-19] MEDS: cloNIDine HCL 0.1 MG TAB PO SCH ×2 (08:26→20:22)
[2016-05-19] MEDS: FAMOTIDINE 20 MG TAB PO SCH ×2 (08:27→20:22)
[2016-05-19] MEDS: LACTOBACILLUS ACIDOPHILUS TAB PO SCH ×3 (08:27→16:46)
[2016-05-19] MEDS: BISOPROLOL FUMARATE 5 MG TAB PO SCH (08:27)
[2016-05-19] MEDS: SENNOSIDES 8.6 MG TAB PO SCH (08:27)
[2016-05-19] MEDS: METOPROLOL TARTRATE 50 MG TAB PO SCH ×2 (08:27→20:22)
[2016-05-19] MEDS: DOCUSATE SODIUM 100 MG CAP PO SCH ×2 (08:27→20:22)
[2016-05-19] MEDS: PREGABALIN 75 MG CAP PO SCH ×2 (08:27→20:22)
[2016-05-19] MEDS: HYDROCHLOROTHIAZIDE 25 MG TAB PO SCH (08:28)
[2016-05-19] MEDS: ENOXAPARIN SODIUM 30 MG/0.3 ML SYRINGE SQ SCH ×2 (08:29→20:21)
[2016-05-19] MEDS: SODIUM CHLORIDE 0.9% FLUSH 5 ML FLUSH IVF SCH (08:29)
[2016-05-19] MEDS: BACITRACIN TOP OINT 15 GM TUBE TOP SCH ×2 (08:30→20:23)
[2016-05-19] MEDS: NYSTATIN 100,000 U/GM PWD 15 GM BTL TOPICAL SCH (08:31)
[2016-05-19] MEDS: fentaNYL 75 MCG/HR PATCH TD SCH (11:18)
[2016-05-19 12:00] VITALS: BP 135/84; PULSE 73; RESP 18; TEMP 97.2; O2SAT 95
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
[2016-05-19 16:00] VITALS: BP 115/69; PULSE 75; RESP 18; TEMP 97.9; O2SAT 97
[2016-05-19 20:00] VITALS: BP 131/83; PULSE 75; RESP 18; TEMP 97.3; O2SAT 96
[2016-05-20] VITALS: BP 138/70; PULSE 71; RESP 18; TEMP 97.5; O2SAT 98
[2016-05-20] MEDS: METHOCARBAMOL 500 MG TAB PO SCH ×6 (00:32→20:28)
[2016-05-20] MEDS: oxyCODONE/ACETAMINOPHEN 7.5 MG/325 MG TAB PO SCH ×6 (00:33→20:29)
[2016-05-20 04:00] VITALS: BP 141/84; PULSE 72; RESP 18; TEMP 97.2; O2SAT 98
[2016-05-20 08:08] VITALS: BP 147/84; PULSE 72; RESP 18; TEMP 96.9; O2SAT 94
--- NOTE | 2016-05-20 08:12 | PD.ORT.PN ---
Subjective Subjective Remarks pain under control. no new complaints. waiting to see if he can be d/c home vs. snf. Objective Vitals Vital Signs Date Time Temp Pulse Resp B/P Pulse Ox O2 Delivery O2 Flow Rate FiO2 05/20/16 04:00 97.2 72 18 141/84 98 05/20/16 00:00 97.5 71 18 138/70 98 05/19/16 20:00 97.3 75 18 131/83 96 05/19/16 16:00 97.9 75 18 115/69 97 05/19/16 12:00 97.2 73 18 135/84 95 I/O 05/19/16 05/19/16 05/19/16 05/20/16 05/20/16 05/20/16 06:59 14:59 22:59 06:59 14:59 22:59 Intake Total 360 ml 1280 ml 480 ml 480 ml Balance 360 ml 1280 ml 480 ml 480 ml Intake Oral 360 ml 1280 ml 480 ml 480 ml # Voids 1 4 2 1 # Bowel Movements 1 0 0 0 Result Diagram: 05/18/1615 05/18/1615 Objective Remarks LUE: +elbow exfix. incision clean and dry. intact. NVI distally. Adjustment made last week to allow some limited motion of the left elbow. LLE: +knee exfix. knee incision healed well. lateral ankle incision healed well and sutures in place. medial skin flap in place and appears healthy. Mild hematoma superiorly. ankle/foot everted. RLE: incisions healed well. nvi distally. knee brace irritating skin but no skin breakdown. Assessment & Plan Assessment and Plan 1) s/p right femur IMN - (04/07/16) 2) s/p right tibial plateau ORIF - (04/09/16) 3) s/p ligamentous repair with external fixator left elbow - (04/12/16) 4) s/p left ankle ORIF - (04/14/16) s/p Ligamentous repair left knee with exfix 5) s/p- left calcaneus ORIF with free flap 6) s/p left ankle ex-fix, adjust left elbow X fix, -NWB BLE ROM of elbow daily dressing changes of left calcaneus with bacitracin/xeroform Lovenox. Discharge planning Stable orthopedically - cleared for d/c home or snf. 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 He is considering buying a transport van for his f/up visits. X-rays look stable -f/up dr. cabrales 2-3 weeks -f/up plastics in [place] next week Montana Redman May 20, 2016 08:12
[2016-05-20] MEDS: cloNIDine HCL 0.1 MG TAB PO SCH ×2 (08:40→20:29)
[2016-05-20] MEDS: PREGABALIN 75 MG CAP PO SCH ×2 (08:41→20:29)
[2016-05-20] MEDS: BISOPROLOL FUMARATE 5 MG TAB PO SCH (08:41)
[2016-05-20] MEDS: SENNOSIDES 8.6 MG TAB PO SCH (08:42)
[2016-05-20] MEDS: HYDROCHLOROTHIAZIDE 25 MG TAB PO SCH (08:42)
[2016-05-20] MEDS: METOPROLOL TARTRATE 50 MG TAB PO SCH ×2 (08:42→20:27)
[2016-05-20] MEDS: LACTOBACILLUS ACIDOPHILUS TAB PO SCH ×3 (08:42→18:00)
[2016-05-20] MEDS: FAMOTIDINE 20 MG TAB PO SCH ×2 (08:42→20:27)
[2016-05-20] MEDS: DOCUSATE SODIUM 100 MG CAP PO SCH ×2 (08:42→20:27)
[2016-05-20] MEDS: ENOXAPARIN SODIUM 30 MG/0.3 ML SYRINGE SQ SCH ×2 (08:43→20:27)
[2016-05-20] MEDS: SODIUM CHLORIDE 0.9% FLUSH 5 ML FLUSH IVF SCH (08:44)
[2016-05-20] MEDS: NYSTATIN 100,000 U/GM PWD 15 GM BTL TOPICAL SCH ×2 (09:00→21:00)
[2016-05-20] MEDS: BACITRACIN TOP OINT 15 GM TUBE TOP SCH ×2 (09:00→21:00)
[2016-05-20 12:08] VITALS: BP 139/80; PULSE 76; RESP 16; TEMP 97.7; O2SAT 95
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
[2016-05-20 16:10] VITALS: BP 130/74; PULSE 79; RESP 17; TEMP 97.8; O2SAT 98
[2016-05-20 20:00] VITALS: BP 136/87; PULSE 76; RESP 18; TEMP 98.4; O2SAT 96
[2016-05-21] VITALS: BP 115/61; PULSE 83; RESP 18; TEMP 98.1; O2SAT 96
[2016-05-21] MEDS: METHOCARBAMOL 500 MG TAB PO SCH ×7 (00:08→23:32)
[2016-05-21] MEDS: oxyCODONE/ACETAMINOPHEN 7.5 MG/325 MG TAB PO SCH ×7 (00:09→23:33)
[2016-05-21 08:00] VITALS: BP 142/85; PULSE 71; RESP 20; TEMP 96.8; O2SAT 97
[2016-05-21] MEDS: NYSTATIN 100,000 U/GM PWD 15 GM BTL TOPICAL SCH ×2 (09:00→20:32)
[2016-05-21] MEDS: FAMOTIDINE 20 MG TAB PO SCH ×2 (09:00→20:31)
[2016-05-21] MEDS: PREGABALIN 75 MG CAP PO SCH ×2 (09:06→20:31)
[2016-05-21] MEDS: SENNOSIDES 8.6 MG TAB PO SCH (09:06)
[2016-05-21] MEDS: METOPROLOL TARTRATE 50 MG TAB PO SCH ×2 (09:07→20:31)
[2016-05-21] MEDS: LACTOBACILLUS ACIDOPHILUS TAB PO SCH ×3 (09:07→16:35)
[2016-05-21] MEDS: BISOPROLOL FUMARATE 5 MG TAB PO SCH (09:07)
[2016-05-21] MEDS: cloNIDine HCL 0.1 MG TAB PO SCH ×2 (09:07→20:31)
[2016-05-21] MEDS: HYDROCHLOROTHIAZIDE 25 MG TAB PO SCH (09:07)
[2016-05-21] MEDS: DOCUSATE SODIUM 100 MG CAP PO SCH ×2 (09:08→20:32)
[2016-05-21] MEDS: ENOXAPARIN SODIUM 30 MG/0.3 ML SYRINGE SQ SCH ×2 (09:10→20:31)
[2016-05-21] MEDS: SODIUM CHLORIDE 0.9% FLUSH 5 ML FLUSH IVF SCH (09:10)
[2016-05-21] MEDS: BACITRACIN TOP OINT 15 GM TUBE TOP SCH ×2 (09:23→20:32)
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
[2016-05-21 12:00] VITALS: BP 117/62; PULSE 75; RESP 20; TEMP 98.3; O2SAT 97
[2016-05-21] MEDS: REMOVE OLD PATCH TD SCH (15:00)
[2016-05-21 16:00] VITALS: BP 119/70; PULSE 73; RESP 20; TEMP 97.8; O2SAT 98
[2016-05-21] MEDS: fentaNYL 75 MCG/HR PATCH TD SCH (16:39)
[2016-05-21 20:00] VITALS: BP 125/79; PULSE 76; RESP 16; TEMP 98.1; O2SAT 97
[2016-05-22] VITALS: BP 145/83; PULSE 81; RESP 16; TEMP 99.5; O2SAT 99
[2016-05-22] MEDS: METHOCARBAMOL 500 MG TAB PO SCH ×5 (04:58→19:57)
[2016-05-22] MEDS: oxyCODONE/ACETAMINOPHEN 7.5 MG/325 MG TAB PO SCH ×5 (04:59→19:58)
[2016-05-22 08:00] VITALS: BP 140/87; PULSE 76; RESP 20; TEMP 97.8; O2SAT 98
[2016-05-22] MEDS: MAGNESIUM HYDROXIDE SUSP 30 ML CUP PO PRN (08:03)
[2016-05-22] MEDS: SENNOSIDES 8.6 MG TAB PO SCH (08:03)
[2016-05-22] MEDS: ENOXAPARIN SODIUM 30 MG/0.3 ML SYRINGE SQ SCH ×2 (08:03→19:59)
[2016-05-22] MEDS: LACTOBACILLUS ACIDOPHILUS TAB PO SCH ×3 (08:03→16:10)
[2016-05-22] MEDS: HYDROCHLOROTHIAZIDE 25 MG TAB PO SCH (08:04)
[2016-05-22] MEDS: METOPROLOL TARTRATE 50 MG TAB PO SCH ×2 (08:04→19:58)
[2016-05-22] MEDS: SODIUM CHLORIDE 0.9% FLUSH 5 ML FLUSH IVF SCH (08:04)
[2016-05-22] MEDS: BISOPROLOL FUMARATE 5 MG TAB PO SCH (08:04)
[2016-05-22] MEDS: PREGABALIN 75 MG CAP PO SCH ×2 (08:04→19:58)
[2016-05-22] MEDS: DOCUSATE SODIUM 100 MG CAP PO SCH ×2 (08:04→19:58)
[2016-05-22] MEDS: FAMOTIDINE 20 MG TAB PO SCH ×2 (08:04→19:58)
[2016-05-22] MEDS: cloNIDine HCL 0.1 MG TAB PO SCH ×2 (08:05→19:58)
[2016-05-22] MEDS: BACITRACIN TOP OINT 15 GM TUBE TOP SCH ×2 (08:05→19:59)
[2016-05-22] MEDS: NYSTATIN 100,000 U/GM PWD 15 GM BTL TOPICAL SCH ×2 (08:05→19:59)
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
[2016-05-22 12:00] VITALS: BP 119/78; PULSE 73; RESP 24; TEMP 97.7; O2SAT 97
[2016-05-22 16:11] VITALS: BP 138/83; PULSE 72; RESP 20; TEMP 98.1; O2SAT 98
[2016-05-22 20:00] VITALS: BP 138/86; PULSE 75; RESP 18; TEMP 97.4; O2SAT 97
[2016-05-23] VITALS: BP 143/71; PULSE 84; RESP 16; TEMP 98.9; O2SAT 95
[2016-05-23] MEDS: oxyCODONE/ACETAMINOPHEN 7.5 MG/325 MG TAB PO SCH ×6 (00:17→19:51)
[2016-05-23] MEDS: METHOCARBAMOL 500 MG TAB PO SCH ×6 (00:17→19:51)
[2016-05-23] MEDS: MAGNESIUM HYDROXIDE SUSP 30 ML CUP PO PRN (00:20)
[2016-05-23] MEDS: SODIUM CHLORIDE 0.9% FLUSH 5 ML FLUSH IVF SCH (06:48)
[2016-05-23] MEDS: LACTOBACILLUS ACIDOPHILUS TAB PO SCH ×3 (07:27→16:02)
[2016-05-23] MEDS: SENNOSIDES 8.6 MG TAB PO SCH (07:28)
[2016-05-23] MEDS: FAMOTIDINE 20 MG TAB PO SCH ×2 (07:28→19:52)
[2016-05-23] MEDS: METOPROLOL TARTRATE 50 MG TAB PO SCH ×2 (07:28→19:51)
[2016-05-23] MEDS: BISOPROLOL FUMARATE 5 MG TAB PO SCH (07:28)
[2016-05-23] MEDS: HYDROCHLOROTHIAZIDE 25 MG TAB PO SCH (07:28)
[2016-05-23] MEDS: cloNIDine HCL 0.1 MG TAB PO SCH ×2 (07:28→19:51)
[2016-05-23] MEDS: DOCUSATE SODIUM 100 MG CAP PO SCH ×2 (07:28→19:51)
[2016-05-23] MEDS: PREGABALIN 75 MG CAP PO SCH ×2 (07:29→19:51)
[2016-05-23] MEDS: ENOXAPARIN SODIUM 30 MG/0.3 ML SYRINGE SQ SCH ×2 (07:29→19:50)
[2016-05-23] MEDS: BACITRACIN TOP OINT 15 GM TUBE TOP SCH ×2 (07:32→19:52)
[2016-05-23] MEDS: NYSTATIN 100,000 U/GM PWD 15 GM BTL TOPICAL SCH ×2 (07:32→19:52)
[2016-05-23 08:00] VITALS: BP 128/82; PULSE 75; RESP 18; TEMP 97; O2SAT 96
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
[2016-05-23] MEDS: LACTULOSE SYRUP 20 GM/30 ML CUP PO SCH (11:48)
[2016-05-23 12:03] VITALS: BP 123/73; PULSE 78; RESP 17; TEMP 97; O2SAT 97
[2016-05-23 16:00] VITALS: BP 138/62; PULSE 76; RESP 18; TEMP 98; O2SAT 98
[2016-05-23 20:00] VITALS: BP 134/79; PULSE 76; RESP 16; TEMP 97.6; O2SAT 98
[2016-05-24] VITALS: BP 154/78; PULSE 82; RESP 16; TEMP 98.6; O2SAT 93
[2016-05-24] MEDS: oxyCODONE/ACETAMINOPHEN 7.5 MG/325 MG TAB PO SCH ×6 (00:13→20:25)
[2016-05-24] MEDS: METHOCARBAMOL 500 MG TAB PO SCH ×6 (00:13→20:24)
[2016-05-24 08:00] VITALS: BP 130/82; PULSE 84; RESP 16; TEMP 99.2; O2SAT 97
[2016-05-24 08:08] LABS: HEMATOCRIT 30.6 % (39.0-51.0); MEAN CELL VOLUME 85.6 FL (80.0-100.0); MEAN CORPUSCULAR HEMOGLOBIN 28.9 PG (27.0-34.0); MEAN CORPUSCULAR HGB CONC 33.7 % (32.0-36.0); PLATELET COUNT 271 TH/MM3 (150-450); RED BLOOD COUNT 3.57 MIL/MM3 (4.50-5.90); RED CELL DISTRIBUTION WIDTH 13.5 % (11.6-17.2); REVIEW FLAG FINAL
[2016-05-24] MEDS: METOPROLOL TARTRATE 50 MG TAB PO SCH ×2 (08:32→20:24)
[2016-05-24] MEDS: SENNOSIDES 8.6 MG TAB PO SCH (08:32)
[2016-05-24] MEDS: BISOPROLOL FUMARATE 5 MG TAB PO SCH (08:33)
[2016-05-24] MEDS: LACTOBACILLUS ACIDOPHILUS TAB PO SCH ×3 (08:34→16:39)
[2016-05-24] MEDS: HYDROCHLOROTHIAZIDE 25 MG TAB PO SCH (08:34)
[2016-05-24 08:35] LABS: BICARBONATE 29.3 MEQ/L (21.0-32.0); MAGNESIUM 1.8 MG/DL (1.5-2.5); POTASSIUM 3.6 MEQ/L (3.5-5.1)
[2016-05-24] MEDS: ENOXAPARIN SODIUM 30 MG/0.3 ML SYRINGE SQ SCH ×2 (08:35→20:24)
[2016-05-24] MEDS: PREGABALIN 75 MG CAP PO SCH ×2 (08:35→20:23)
[2016-05-24] MEDS: LACTULOSE SYRUP 20 GM/30 ML CUP PO SCH (08:35)
[2016-05-24] MEDS: SODIUM CHLORIDE 0.9% FLUSH 5 ML FLUSH IVF SCH (08:35)
[2016-05-24] MEDS: DOCUSATE SODIUM 100 MG CAP PO SCH ×2 (08:35→20:23)
[2016-05-24] MEDS: cloNIDine HCL 0.1 MG TAB PO SCH ×2 (08:35→20:24)
[2016-05-24] MEDS: FAMOTIDINE 20 MG TAB PO SCH ×2 (08:35→20:24)
[2016-05-24] MEDS: BACITRACIN TOP OINT 15 GM TUBE TOP SCH ×2 (08:36→21:00)
[2016-05-24] MEDS: NYSTATIN 100,000 U/GM PWD 15 GM BTL TOPICAL SCH ×2 (08:36→21:00)
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
[2016-05-24 12:00] VITALS: BP 116/70; PULSE 76; RESP 16; TEMP 97.5; O2SAT 96
[2016-05-24 16:00] VITALS: BP 120/69; PULSE 77; RESP 16; TEMP 98.9; O2SAT 99
[2016-05-24] MEDS: fentaNYL 75 MCG/HR PATCH TD SCH (16:40)
[2016-05-24] MEDS: REMOVE OLD PATCH TD SCH (16:40)
[2016-05-24 20:00] VITALS: BP 137/86; PULSE 80; RESP 18; TEMP 99.1; O2SAT 95
[2016-05-24 23:39] VITALS: BP 144/90; PULSE 80; RESP 18; TEMP 98.7; O2SAT 98
[2016-05-25] MEDS: oxyCODONE/ACETAMINOPHEN 7.5 MG/325 MG TAB PO SCH ×6 (00:11→20:48)
[2016-05-25] MEDS: METHOCARBAMOL 500 MG TAB PO SCH ×6 (00:11→20:47)
[2016-05-25 08:00] VITALS: BP 131/85; PULSE 71; RESP 20; TEMP 98.3; O2SAT 99
[2016-05-25] MEDS: ENOXAPARIN SODIUM 30 MG/0.3 ML SYRINGE SQ SCH ×2 (08:14→20:49)
[2016-05-25] MEDS: BISOPROLOL FUMARATE 5 MG TAB PO SCH (08:16)
[2016-05-25] MEDS: LACTULOSE SYRUP 20 GM/30 ML CUP PO SCH (08:16)
[2016-05-25] MEDS: HYDROCHLOROTHIAZIDE 25 MG TAB PO SCH (08:18)
[2016-05-25] MEDS: PREGABALIN 75 MG CAP PO SCH ×2 (08:19→20:48)
[2016-05-25] MEDS: FAMOTIDINE 20 MG TAB PO SCH ×2 (08:19→20:47)
[2016-05-25] MEDS: SENNOSIDES 8.6 MG TAB PO SCH (08:20)
[2016-05-25] MEDS: METOPROLOL TARTRATE 50 MG TAB PO SCH ×2 (08:20→20:47)
[2016-05-25] MEDS: LACTOBACILLUS ACIDOPHILUS TAB PO SCH ×2 (08:21→20:47)
[2016-05-25] MEDS: cloNIDine HCL 0.1 MG TAB PO SCH ×2 (08:22→20:47)
[2016-05-25] MEDS: DOCUSATE SODIUM 100 MG CAP PO SCH ×2 (08:22→20:47)
[2016-05-25] MEDS: NYSTATIN 100,000 U/GM PWD 15 GM BTL TOPICAL SCH ×2 (08:23→20:51)
--- NOTE | 2016-05-25 08:30 | PD.ORT.PN ---
Subjective Subjective Remarks Resting comfortably with no new complaints. Is having difficulty finding a [place] [facility] [place] facility to except due to limitations to 3 extremities Objective Vitals Vital Signs Date Time Temp Pulse Resp B/P Pulse Ox O2 Delivery O2 Flow Rate FiO2 05/24/16 23:39 98.7 80 18 144/90 98 05/24/16 20:00 99.1 80 18 137/86 95 05/24/16 16:00 98.9 77 16 120/69 99 05/24/16 12:00 97.5 76 16 116/70 96 I/O 05/24/16 05/24/16 05/24/16 05/25/16 05/25/16 05/25/16 07:00 15:00 23:00 07:00 15:00 23:00 Intake Total 960 ml 360 ml Output Total 1100 ml Balance -140 ml 360 ml Intake Oral 960 ml 360 ml Output Urine Total 1100 ml # Voids 4 2 # Bowel Movements 0 0 Result Diagram: 05/24/1672005/24/1621 Objective Remarks LUE: +elbow exfix. incision clean and dry. intact. NVI distally. Range of motion is from 20 to 95 LLE: +knee exfix. knee incision healed well. lateral ankle incision healed well and sutures in place. medial skin flap in place and appears healthy. Good granulation tissue on the anterior portion of the flap. . RLE: incisions healed well. nvi distally. knee brace irritating skin but no skin breakdown. Assessment & Plan Assessment and Plan 1) s/p right femur IMN - (04/07/16) 2) s/p right tibial plateau ORIF - (04/09/16) 3) s/p ligamentous repair with external fixator left elbow - (04/12/16) 4) s/p left ankle ORIF - (04/14/16) s/p Ligamentous repair left knee with exfix 5) s/p- left calcaneus ORIF with free flap 6) s/p left ankle ex-fix, adjust left elbow X fix, -NWB BLE ROM of elbow daily dressing changes of left calcaneus with bacitracin/xeroform Lovenox. Nothing by mouth after midnight We'll plan on revision of external fixation of left lower extremity and also split-thickness skin graft over the anterior portion of the free flap JOVI OSORIO PA-C May 25, 2016 08:30
[2016-05-25] MEDS: SODIUM CHLORIDE 0.9% FLUSH 5 ML FLUSH IVF SCH (09:00)
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
[2016-05-25 12:00] VITALS: BP 139/78; PULSE 80; RESP 24; TEMP 97.4; O2SAT 97
[2016-05-25 16:00] VITALS: BP 119/69; PULSE 76; RESP 20; TEMP 98.5; O2SAT 98
[2016-05-25 20:00] VITALS: BP 139/87; PULSE 82; RESP 17; TEMP 97.9; O2SAT 95
[2016-05-25] MEDS: BACITRACIN TOP OINT 15 GM TUBE TOP SCH (21:00)
[2016-05-26] VITALS: BP 136/81; PULSE 83; RESP 17; TEMP 97.7; O2SAT 99
[2016-05-26] MEDS: METHOCARBAMOL 500 MG TAB PO SCH ×7 (00:25→20:07)
[2016-05-26] MEDS: oxyCODONE/ACETAMINOPHEN 7.5 MG/325 MG TAB PO SCH ×7 (00:26→20:07)
[2016-05-26] MEDS ORDERED: INSULIN HUMAN REGULAR 1,000 UNITS/10 ML VIAL SQ PRN (03:45)
[2016-05-26] MEDS ORDERED: SODIUM CHLORID 0.9% 500 ML IV SCH (04:00)
[2016-05-26] MEDS ORDERED: LACTATED RINGER'S 1000 ML IV SCH (04:00)
--- NOTE | 2016-05-26 06:45 | PD.ORT.PN ---
Subjective Subjective Remarks Resting comfortably with no new complaints. Is having difficulty finding a halfway facility to except due to limitations to 3 extremities Objective Vitals Vital Signs Date Time Temp Pulse Resp B/P Pulse Ox O2 Delivery O2 Flow Rate FiO2 05/26/16 00:00 97.7 83 17 136/81 99 05/25/16 20:00 97.9 82 17 139/87 95 05/25/16 16:00 98.5 76 20 119/69 98 05/25/16 12:00 97.4 80 24 139/78 97 05/25/16 08:00 98.3 71 20 131/85 99 I/O 05/25/16 05/25/16 05/25/16 05/26/16 05/26/16 05/26/16 07:00 15:00 23:00 07:00 15:00 23:00 Intake Total 360 ml 1000 ml 720 ml 600 ml Output Total 1600 ml 500 ml Balance 360 ml -600 ml 720 ml 100 ml Intake Oral 360 ml 1000 ml 720 ml 600 ml Output Urine Total 1600 ml 500 ml # Voids 2 4 3 # Bowel Movements 0 0 0 Result Diagram: 05/24/1672005/24/16720 Objective Remarks LUE: +elbow exfix. incision clean and dry. intact. NVI distally. Range of motion is from 20 to 95 LLE: +knee exfix. knee incision healed well. lateral ankle incision healed well and sutures in place. medial skin flap in place and appears healthy. Good granulation tissue on the anterior portion of the flap. . RLE: incisions healed well. nvi distally. knee brace irritating skin but no skin breakdown. Assessment & Plan Assessment and Plan 1) s/p right femur IMN - (04/07/16) 2) s/p right tibial plateau ORIF - (04/09/16) 3) s/p ligamentous repair with external fixator left elbow - (04/12/16) 4) s/p left ankle ORIF - (04/14/16) s/p Ligamentous repair left knee with exfix 5) s/p- left calcaneus ORIF with free flap 6) s/p left ankle ex-fix, adjust left elbow X fix, -NWB BLE ROM of elbow daily dressing changes of left calcaneus with bacitracin/xeroform Nothing by mouth We'll plan on revision of external fixation of left lower extremity and also split-thickness skin graft over the anterior portion of the free flap JOVI OSORIO PA-C May 26, 2016 06:45
[2016-05-26] MEDS: SODIUM CHLORIDE 0.9% FLUSH 5 ML FLUSH IVF SCH (07:56)
[2016-05-26] MEDS: METOPROLOL TARTRATE 50 MG TAB PO SCH ×2 (07:58→20:07)
[2016-05-26 08:00] VITALS: BP 131/79; PULSE 77; RESP 18; TEMP 96.8; O2SAT 96
[2016-05-26] MEDS ORDERED: LIDOCAINE 2% JELLY 30 ML TUBE ONE (08:20)
[2016-05-26] MEDS ORDERED: MINERAL OIL 10 ML VIAL ONE (08:21)
[2016-05-26] MEDS ORDERED: GENTAMICIN SULFATE 80 MG/2 ML VIAL ONE (08:21)
[2016-05-26] MEDS: LACTOBACILLUS ACIDOPHILUS TAB PO SCH ×3 (09:00→17:12)
[2016-05-26] MEDS: HYDROCHLOROTHIAZIDE 25 MG TAB PO SCH (09:00)
[2016-05-26] MEDS: FAMOTIDINE 20 MG TAB PO SCH ×2 (09:00→20:07)
[2016-05-26] MEDS: DOCUSATE SODIUM 100 MG CAP PO SCH ×2 (09:00→20:07)
[2016-05-26] MEDS: BACITRACIN TOP OINT 15 GM TUBE TOP SCH ×2 (09:00→20:10)
[2016-05-26] MEDS: LACTULOSE SYRUP 20 GM/30 ML CUP PO SCH (09:00)
[2016-05-26] MEDS: PREGABALIN 75 MG CAP PO SCH ×2 (09:00→20:07)
[2016-05-26] MEDS: BISOPROLOL FUMARATE 5 MG TAB PO SCH (09:00)
[2016-05-26] MEDS: SENNOSIDES 8.6 MG TAB PO SCH (09:00)
[2016-05-26] MEDS: NYSTATIN 100,000 U/GM PWD 15 GM BTL TOPICAL SCH ×2 (09:00→20:09)
[2016-05-26] MEDS: cloNIDine HCL 0.1 MG TAB PO SCH ×2 (09:00→20:07)
[2016-05-26] MEDS ORDERED: MIDAZOLAM HCL 2 MG/2 ML VIAL ONE (09:34)
[2016-05-26] MEDS ORDERED: ceFAZolin 2 GM PREMIX 50 ML ONE (09:39)
[2016-05-26] MEDS ORDERED: VANCOMYCIN HCL 1000 MG VIAL ONE (09:39)
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
[2016-05-26] MEDS ORDERED: PHENYLEPH/NS 1000 MCG/10 ML SYR IV ONE (12:00)
[2016-05-26] MEDS ORDERED: PROPOFOL 200 MG/20 ML AMP IV ONE (12:00)
[2016-05-26] MEDS: LACTATED RINGER'S 1000 ML INJ 1,000 ML IV SCH ×2 (12:00→22:00)
[2016-05-26] MEDS ORDERED: NEOSTIGMINE 3 MG/3 ML SYR IV ONE (12:00)
[2016-05-26] MEDS ORDERED: LACTATED RINGER'S 1000 ML INJ 1,000 ML IV ONE (12:00)
[2016-05-26] MEDS ORDERED: ONDANSETRON HCL 4 MG/2 ML VIAL IV PUSH ONE (12:00)
[2016-05-26] MEDS ORDERED: DO NOT ADM ANY ANTICOAGULANT DRUGS XX PRN (12:02)
--- NOTE | 2016-05-26 12:02 | RADRPT ---
EXAM DATE/TIME: 05/26/2016 11:42 [facility] COMPARISON: KNEE LEFT LTD (1 OR 2VWS), April 14, 2016, 8:37. INDICATIONS : Left knee manipulation done in operating room. MEDICAL HISTORY : None. SURGICAL HISTORY : None. ENCOUNTER: Initial ACUITY: 1 day PAIN SCORE: Non-responsive. LOCATION: Left knee. FINDINGS: Two view examination of the left knee demonstrates internal fixation pin in the proximal fibula. No c hange in alignment or position of the bony structures. No significant change compared to the prior st udy. The hardware is intact.. CONCLUSION: Stable examination compared to the prior study. Yuriy Mack MD on May 26, 2016 at 11:59 Board Certified Radiologist. This report was verified electronically.
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
[2016-05-26] MEDS ORDERED: fentaNYL CITRATE 250 MCG/5 ML AMP ONE (12:14)
[2016-05-26] MEDS ORDERED: *morphine SULFATE 8 MG/ML PERIprocedure ONLY ONE (12:21)
[2016-05-26] MEDS ORDERED: *HYDROmorphone PF 1 MG VIAL PERIprocedural Use ONLY ONE (12:31)
[2016-05-26] MEDS ORDERED: *MEPERIDINE 25 MG INJ VIAL PERIprocedural Use ONLY ONE (12:36)
[2016-05-26 13:00] VITALS: BP 132/78; PULSE 76; RESP 16; TEMP 96.8; O2SAT 99
[2016-05-26 16:20] VITALS: BP 138/79; PULSE 100; RESP 18; TEMP 99.1; O2SAT 98
[2016-05-26] MEDS: ceFAZolin 2 GM PREMIX 50 ML IV SCH (17:12)
[2016-05-26] MEDS ORDERED: LORazepam 1 MG TAB PO ONE (17:15)
[2016-05-26] MEDS ORDERED: ceFAZolin 2 GM PREMIX 50 ML IV SCH (18:00)
[2016-05-26 20:00] VITALS: BP 141/85; PULSE 105; RESP 19; TEMP 98.5; O2SAT 96
[2016-05-26] MEDS: VANCOMYCIN INJ 1,000 MG in SODIUM CHLOR 0.9% 250 ML INJ 250 ML IV SCH (23:46)
[2016-05-27] VITALS (7 sets, daily range): BP systolic 121–151; BP diastolic 69–89; PULSE 78–100; RESP 16–20; TEMP 97.1–98.9; O2SAT 95–100
[2016-05-27] MEDS: oxyCODONE/ACETAMINOPHEN 7.5 MG/325 MG TAB PO SCH ×6 (00:26→21:05)
[2016-05-27] MEDS: METHOCARBAMOL 500 MG TAB PO SCH ×6 (00:26→21:03)
[2016-05-27] MEDS: ceFAZolin 2 GM PREMIX 50 ML IV SCH ×3 (02:43→17:26)
--- NOTE | 2016-05-27 07:06 | PD.ORT.PN ---
Subjective Subjective Remarks s/p right tibial plateau ORIF s/p right femur IMN s/p left ankle ORIF s/p- left calcaneus ORIF with free flap s/p Ligamentous repair left knee with exfix s/p ligamentous repair with external fixator left elbow POD 1 s/p STSG with removal of exfix and manipulation of left knee states that has had extreme pain in left knee. no pain anywhere else. states that has been excruciating and has not been able to get relief Objective Vitals Vital Signs Date Time Temp Pulse Resp B/P Pulse Ox O2 Delivery O2 Flow Rate FiO2 05/27/16 04:00 97.4 88 16 121/69 97 05/27/16 00:00 98.8 100 20 145/87 95 05/26/16 20:00 98.5 105 19 141/85 96 05/26/16 16:20 99.1 100 18 138/79 98 05/26/16 13:00 96.8 76 16 132/78 99 05/26/16 12:30 76 12 148/86 98 Nasal Cannula 2 05/26/16 12:15 70 12 119/74 96 Nasal Cannula 2 05/26/16 12:06 98.5 78 12 113/69 95 Nasal Cannula 4 05/26/16 08:00 96.8 77 18 131/79 96 I/O 05/26/16 05/26/16 05/26/16 05/27/16 05/27/16 05/27/16 07:00 15:00 23:00 07:00 15:00 23:00 Intake Total 600 ml 1300 ml 600 ml 480 ml Output Total 500 ml 610 ml 700 ml 450 ml Balance 100 ml 690 ml -100 ml 30 ml Intake Oral 600 ml 0 ml 600 ml 480 ml IV Total 200 ml Other 1100 ml Output Urine Total 500 ml 600 ml 700 ml 450 ml Estimated Blood Loss 10 ml Other 0 ml # Bowel Movements 0 0 0 Result Diagram: 05/24/1672005/24/16720 Objective Remarks LUE: +elbow exfix. incision clean and dry. intact. NVI distally. Range of motion is from 20 to 95 LLE: knee incision healed well. lateral ankle incision healed well and sutures in place. medial skin flap in place and appears healthy. Good granulation tissue on the anterior portion of the flap. +ankle exfix present. +knee brace. exquisitely tender to touch over patellar tendon.. RLE: incisions healed well. nvi distally. knee brace irritating skin but no skin breakdown. Assessment & Plan Assessment and Plan 1) s/p right femur IMN - (04/07/16) 2) s/p right tibial plateau ORIF - (04/09/16) 3) s/p ligamentous repair with external fixator left elbow - (04/12/16) 4) s/p left ankle ORIF - (04/14/16) s/p Ligamentous repair left knee with exfix 5) s/p- left calcaneus ORIF with free flap 6) s/p left ankle ex-fix, adjust left elbow X fix, 7) s/p Removal of left knee exfix and manipulation with STSG left ankle - (05/26) -NWB BLE ROM of elbow daily dressing changes of left calcaneus on Tuesday with xeroform/4x4/loosely wrapped ulises wrap - will start toradol 30mg Q6H x 6 doses and Ativan 1mg Q6H PRN Diego Cochran May 27, 2016 07:06
[2016-05-27] MEDS: SENNOSIDES 8.6 MG TAB PO SCH (08:38)
[2016-05-27] MEDS: LORazepam 1 MG TAB PO SCH ×3 (08:38→18:00)
[2016-05-27] MEDS: BISOPROLOL FUMARATE 5 MG TAB PO SCH (08:38)
[2016-05-27] MEDS: HYDROCHLOROTHIAZIDE 25 MG TAB PO SCH (08:38)
[2016-05-27] MEDS: LACTOBACILLUS ACIDOPHILUS TAB PO SCH ×3 (08:38→18:00)
[2016-05-27] MEDS: FAMOTIDINE 20 MG TAB PO SCH ×2 (08:38→21:03)
[2016-05-27] MEDS: METOPROLOL TARTRATE 50 MG TAB PO SCH ×2 (08:39→21:03)
[2016-05-27] MEDS: PREGABALIN 75 MG CAP PO SCH ×2 (08:39→21:03)
[2016-05-27] MEDS: cloNIDine HCL 0.1 MG TAB PO SCH ×2 (08:39→21:03)
[2016-05-27] MEDS: KETOROLAC TROMETHAMINE 60 MG/2 ML (IM) VIAL IM SCH ×3 (08:40→17:27)
[2016-05-27] MEDS: LACTULOSE SYRUP 20 GM/30 ML CUP PO SCH (08:40)
[2016-05-27] MEDS: DOCUSATE SODIUM 100 MG CAP PO SCH ×2 (08:43→21:03)
[2016-05-27] MEDS: SODIUM CHLORIDE 0.9% FLUSH 5 ML FLUSH IV FLUSH SCH ×2 (08:56→21:05)
[2016-05-27] MEDS: NYSTATIN 100,000 U/GM PWD 15 GM BTL TOPICAL SCH ×2 (09:00→21:05)
[2016-05-27] MEDS: BACITRACIN TOP OINT 15 GM TUBE TOP SCH ×2 (09:00→21:00)
[2016-05-27] MEDS: VANCOMYCIN INJ 1,000 MG in SODIUM CHLOR 0.9% 250 ML INJ 250 ML IV SCH (11:32)
[2016-05-27] MEDS: ENOXAPARIN SODIUM 30 MG/0.3 ML SYRINGE SQ SCH (11:32)
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
[2016-05-27] MEDS: DOCUSATE SODIUM 50 MG/SENNA 8.6 MG TAB PO SCH (13:30)
[2016-05-27] MEDS: REMOVE OLD PATCH TD SCH (15:00)
[2016-05-27] MEDS: fentaNYL 75 MCG/HR PATCH TD SCH (15:21)
[2016-05-28] VITALS: BP_SYST 147; BP_SYST 151; BP_DIAS 79; BP_DIAS 87; PULSE 83; PULSE 87; RESP 18; RESP 20; TEMP 98.3; TEMP 99.1; O2SAT 97; O2SAT 98
[2016-05-28] MEDS: oxyCODONE/ACETAMINOPHEN 7.5 MG/325 MG TAB PO SCH ×6 (00:28→21:33)
[2016-05-28] MEDS: METHOCARBAMOL 500 MG TAB PO SCH ×6 (00:29→21:32)
[2016-05-28] MEDS: LORazepam 1 MG TAB PO SCH ×4 (00:29→18:11)
[2016-05-28] MEDS: KETOROLAC TROMETHAMINE 60 MG/2 ML (IM) VIAL IM SCH ×3 (00:29→12:03)
[2016-05-28] MEDS: VANCOMYCIN INJ 1,000 MG in SODIUM CHLOR 0.9% 250 ML INJ 250 ML IV SCH ×2 (00:29→11:16)
[2016-05-28] MEDS: ENOXAPARIN SODIUM 30 MG/0.3 ML SYRINGE SQ SCH ×3 (00:30→22:50)
[2016-05-28] MEDS: ceFAZolin 2 GM PREMIX 50 ML IV SCH ×3 (02:32→17:11)
--- NOTE | 2016-05-28 06:43 | PD.ORT.PN ---
Subjective Subjective Remarks Resting comfortably with no new complaints. Objective Vitals Vital Signs Date Time Temp Pulse Resp B/P Pulse Ox O2 Delivery O2 Flow Rate FiO2 05/28/16 00:00 99.1 83 18 147/79 98 05/27/16 20:00 97.1 80 16 127/79 97 05/27/16 17:30 98.2 78 18 135/76 100 05/27/16 14:09 98 21 05/27/16 12:00 98.7 92 18 148/88 96 05/27/16 08:00 98.9 93 17 151/89 96 I/O 05/27/16 05/27/16 05/27/16 05/28/16 05/28/16 05/28/16 06:59 14:59 22:59 06:59 14:59 22:59 Intake Total 480 ml 720 ml Output Total 450 ml Balance 30 ml 720 ml Intake Oral 480 ml 720 ml Output Urine Total 450 ml # Voids 2 # Bowel Movements 0 Result Diagram: 05/24/16 0721 05/24/16 0721 Objective Remarks LUE: +elbow exfix. incision clean and dry. intact. NVI distally. Range of motion is from 20 to 95 LLE: knee incision healed well. lateral ankle incision healed well and sutures in place. medial skin flap in place and appears healthy. Good granulation tissue on the anterior portion of the flap. +ankle exfix present. +knee brace. exquisitely tender to touch over patellar tendon.. RLE: incisions healed well. nvi distally. knee brace irritating skin but no skin breakdown. Assessment & Plan Assessment and Plan 1) s/p right femur IMN - (04/07/16) 2) s/p right tibial plateau ORIF - (04/09/16) 3) s/p ligamentous repair with external fixator left elbow - (04/12/16) 4) s/p left ankle ORIF - (04/14/16) s/p Ligamentous repair left knee with exfix 5) s/p- left calcaneus ORIF with free flap 6) s/p left ankle ex-fix, adjust left elbow X fix, 7) s/p Removal of left knee exfix and manipulation with STSG left ankle - (05/26) Pin care twice a day -Nonweightbearing bilateral lower extremities and left upper extremity ROM of elbow We will take down dressing on Tuesday left ankle with xeroform/4x4/loosely wrapped ulises wrap - do not change dressing - will start toradol 30mg Q6H x 6 doses and Ativan 1mg Q6H PRN Lovenox [employer] to modify range of motion knee brace JVOI OSORIO PA-C May 28, 2016 06:43
[2016-05-28 08:00] VITALS: BP 141/84; PULSE 81; RESP 20; TEMP 98.3; O2SAT 97
[2016-05-28] MEDS: NYSTATIN 100,000 U/GM PWD 15 GM BTL TOPICAL SCH ×2 (09:12→21:35)
[2016-05-28] MEDS: BACITRACIN TOP OINT 15 GM TUBE TOP SCH ×2 (09:12→21:00)
[2016-05-28] MEDS: HYDROCHLOROTHIAZIDE 25 MG TAB PO SCH (09:13)
[2016-05-28] MEDS: LACTULOSE SYRUP 20 GM/30 ML CUP PO SCH (09:13)
[2016-05-28] MEDS: BISOPROLOL FUMARATE 5 MG TAB PO SCH (09:13)
[2016-05-28] MEDS: PREGABALIN 75 MG CAP PO SCH ×2 (09:14→21:32)
[2016-05-28] MEDS: FAMOTIDINE 20 MG TAB PO SCH ×2 (09:14→21:32)
[2016-05-28] MEDS: LACTOBACILLUS ACIDOPHILUS TAB PO SCH ×3 (09:14→17:10)
[2016-05-28] MEDS: DOCUSATE SODIUM 100 MG CAP PO SCH ×2 (09:14→21:32)
[2016-05-28] MEDS: SENNOSIDES 8.6 MG TAB PO SCH (09:14)
[2016-05-28] MEDS: METOPROLOL TARTRATE 50 MG TAB PO SCH ×2 (09:14→21:32)
[2016-05-28] MEDS: cloNIDine HCL 0.1 MG TAB PO SCH ×2 (09:14→21:32)
[2016-05-28] MEDS: DOCUSATE SODIUM 50 MG/SENNA 8.6 MG TAB PO SCH (09:15)
[2016-05-28] MEDS: SODIUM CHLORIDE 0.9% FLUSH 5 ML FLUSH IV FLUSH SCH ×2 (09:15→21:00)
[2016-05-28 11:48] VITALS: BP 154/83; PULSE 90; RESP 20; TEMP 98.4; O2SAT 97
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
[2016-05-28 16:00] VITALS: BP 129/75; PULSE 73; RESP 20; TEMP 96.7; O2SAT 95
[2016-05-28 19:45] VITALS: BP 129/82; PULSE 79; RESP 18; TEMP 96.9; O2SAT 97
[2016-05-29] VITALS: BP 151/87; PULSE 87; RESP 20; TEMP 98.3; O2SAT 97
[2016-05-29] MEDS: METHOCARBAMOL 500 MG TAB PO SCH ×6 (01:01→21:00)
[2016-05-29] MEDS: oxyCODONE/ACETAMINOPHEN 7.5 MG/325 MG TAB PO SCH ×6 (01:01→21:00)
[2016-05-29] MEDS: ceFAZolin 2 GM PREMIX 50 ML IV SCH ×2 (01:02→08:58)
[2016-05-29] MEDS: LORazepam 1 MG TAB PO SCH ×5 (05:40→23:05)
[2016-05-29 07:13] VITALS: BP 166/92; PULSE 88; RESP 17; TEMP 98.5; O2SAT 95
[2016-05-29] MEDS ORDERED: BISACODYL EC 5 MG TABEC PO ONE (08:30)
[2016-05-29] MEDS ORDERED: BISACODYL 10 MG SUPP RECTAL ONE (08:30)
[2016-05-29] MEDS: PREGABALIN 75 MG CAP PO SCH ×2 (08:55→21:00)
[2016-05-29] MEDS: cloNIDine HCL 0.1 MG TAB PO SCH ×2 (08:55→21:00)
[2016-05-29] MEDS: SODIUM CHLORIDE 0.9% FLUSH 5 ML FLUSH IV FLUSH SCH ×2 (08:55→23:09)
[2016-05-29] MEDS: METOPROLOL TARTRATE 50 MG TAB PO SCH ×2 (08:55→21:00)
[2016-05-29] MEDS: FAMOTIDINE 20 MG TAB PO SCH ×2 (08:55→21:00)
[2016-05-29] MEDS: SENNOSIDES 8.6 MG TAB PO SCH (08:55)
[2016-05-29] MEDS: HYDROCHLOROTHIAZIDE 25 MG TAB PO SCH (08:56)
[2016-05-29] MEDS: BISOPROLOL FUMARATE 5 MG TAB PO SCH (08:56)
[2016-05-29] MEDS: LACTOBACILLUS ACIDOPHILUS TAB PO SCH ×3 (08:56→17:08)
[2016-05-29] MEDS: DOCUSATE SODIUM 100 MG CAP PO SCH ×2 (08:57→21:00)
[2016-05-29] MEDS: NYSTATIN 100,000 U/GM PWD 15 GM BTL TOPICAL SCH ×2 (08:57→23:08)
[2016-05-29] MEDS: BACITRACIN TOP OINT 15 GM TUBE TOP SCH ×2 (08:57→21:00)
[2016-05-29] MEDS: DOCUSATE SODIUM 50 MG/SENNA 8.6 MG TAB PO SCH (08:57)
[2016-05-29] MEDS: LACTULOSE SYRUP 20 GM/30 ML CUP PO SCH (08:57)
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
[2016-05-29] MEDS: ENOXAPARIN SODIUM 30 MG/0.3 ML SYRINGE SQ SCH ×2 (11:25→23:05)
[2016-05-29 11:31] VITALS: BP 130/71; PULSE 84; RESP 17; TEMP 97.2; O2SAT 95
[2016-05-29 15:15] VITALS: BP 132/73; PULSE 92; RESP 17; TEMP 97.4; O2SAT 96
[2016-05-29 20:00] VITALS: BP 135/79; PULSE 80; RESP 18; TEMP 97.5; O2SAT 95
[2016-05-29] MEDS: MAGNESIUM HYDROXIDE SUSP 30 ML CUP PO SCH (21:00)
[2016-05-30] VITALS: BP 135/83; PULSE 76; RESP 18; TEMP 97.9; O2SAT 97
[2016-05-30] MEDS: oxyCODONE/ACETAMINOPHEN 7.5 MG/325 MG TAB PO SCH ×6 (01:11→21:08)
[2016-05-30] MEDS: METHOCARBAMOL 500 MG TAB PO SCH ×6 (01:12→21:07)
[2016-05-30] MEDS: LORazepam 1 MG TAB PO SCH ×4 (05:02→23:10)
[2016-05-30 07:11] VITALS: BP 156/89; PULSE 82; RESP 19; TEMP 97.7; O2SAT 94
[2016-05-30] MEDS: BACITRACIN TOP OINT 15 GM TUBE TOP SCH ×2 (09:00→21:00)
[2016-05-30] MEDS: NYSTATIN 100,000 U/GM PWD 15 GM BTL TOPICAL SCH ×2 (09:00→21:00)
[2016-05-30] MEDS: HYDROCHLOROTHIAZIDE 25 MG TAB PO SCH (09:03)
[2016-05-30] MEDS: LACTOBACILLUS ACIDOPHILUS TAB PO SCH ×3 (09:03→17:35)
[2016-05-30] MEDS: FAMOTIDINE 20 MG TAB PO SCH ×2 (09:03→21:07)
[2016-05-30] MEDS: SENNOSIDES 8.6 MG TAB PO SCH (09:03)
[2016-05-30] MEDS: BISOPROLOL FUMARATE 5 MG TAB PO SCH (09:04)
[2016-05-30] MEDS: DOCUSATE SODIUM 50 MG/SENNA 8.6 MG TAB PO SCH (09:04)
[2016-05-30] MEDS: DOCUSATE SODIUM 100 MG CAP PO SCH ×2 (09:04→21:07)
[2016-05-30] MEDS: METOPROLOL TARTRATE 50 MG TAB PO SCH ×2 (09:04→21:07)
[2016-05-30] MEDS: cloNIDine HCL 0.1 MG TAB PO SCH ×2 (09:04→21:07)
[2016-05-30] MEDS: PREGABALIN 75 MG CAP PO SCH ×2 (09:05→21:07)
[2016-05-30] MEDS: LACTULOSE SYRUP 20 GM/30 ML CUP PO SCH (09:05)
[2016-05-30] MEDS: SODIUM CHLORIDE 0.9% FLUSH 5 ML FLUSH IV FLUSH SCH ×2 (09:08→23:10)
[2016-05-30 11:37] VITALS: BP 130/86; PULSE 72; RESP 19; TEMP 97.2; O2SAT 94
[2016-05-30] MEDS: ENOXAPARIN SODIUM 30 MG/0.3 ML SYRINGE SQ SCH ×2 (11:39→23:10)
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
[2016-05-30] MEDS: REMOVE OLD PATCH TD SCH (15:45)
[2016-05-30 15:47] VITALS: BP 137/84; PULSE 74; RESP 19; TEMP 97.6; O2SAT 98
[2016-05-30] MEDS: fentaNYL 75 MCG/HR PATCH TD SCH (15:52)
[2016-05-30 20:00] VITALS: BP 157/95; PULSE 79; RESP 18; TEMP 98.6; O2SAT 97
[2016-05-30] MEDS: MAGNESIUM HYDROXIDE SUSP 30 ML CUP PO SCH (21:06)
[2016-05-31] VITALS: BP 129/80; PULSE 88; RESP 16; TEMP 97.5; O2SAT 96
[2016-05-31] MEDS: oxyCODONE/ACETAMINOPHEN 7.5 MG/325 MG TAB PO SCH ×6 (00:44→21:04)
[2016-05-31] MEDS: METHOCARBAMOL 500 MG TAB PO SCH ×6 (00:45→21:03)
[2016-05-31] MEDS: LORazepam 1 MG TAB PO SCH ×4 (05:08→21:02)
[2016-05-31 07:37] LABS: HEMATOCRIT 29.6 % (39.0-51.0); MEAN CELL VOLUME 83.9 FL (80.0-100.0); MEAN CORPUSCULAR HEMOGLOBIN 28.1 PG (27.0-34.0); MEAN CORPUSCULAR HGB CONC 33.5 % (32.0-36.0); PLATELET COUNT 293 TH/MM3 (150-450); RED BLOOD COUNT 3.53 MIL/MM3 (4.50-5.90); RED CELL DISTRIBUTION WIDTH 13.5 % (11.6-17.2); REVIEW FLAG FINAL
[2016-05-31 08:00] VITALS: BP 149/93; PULSE 99; RESP 20; TEMP 98.3; O2SAT 96
[2016-05-31 08:07] LABS: BICARBONATE 32.1 MEQ/L (21.0-32.0); POTASSIUM 3.3 MEQ/L (3.5-5.1)
[2016-05-31] MEDS: SODIUM CHLORIDE 0.9% FLUSH 5 ML FLUSH IV FLUSH SCH ×2 (09:00→21:05)
[2016-05-31] MEDS: BACITRACIN TOP OINT 15 GM TUBE TOP SCH ×2 (09:00→21:00)
--- NOTE | 2016-05-31 09:18 | PD.ORT.PN ---
Subjective Subjective Remarks Resting comfortably with no new complaints. Objective Vitals Vital Signs Date Time Temp Pulse Resp B/P Pulse Ox O2 Delivery O2 Flow Rate FiO2 05/31/16 00:00 97.5 88 16 129/80 96 05/30/16 20:00 98.6 79 18 157/95 97 05/30/16 15:47 97.6 74 19 137/84 98 05/30/16 11:37 97.2 72 19 130/86 94 I/O 05/30/16 05/30/16 05/30/16 05/31/16 05/31/16 05/31/16 07:00 15:00 23:00 07:00 15:00 23:00 Intake Total 120 ml 1200 ml 480 ml 120 ml Balance 120 ml 1200 ml 480 ml 120 ml Intake Oral 120 ml 1200 ml 480 ml 120 ml # Voids 0 4 1 0 # Bowel Movements 0 0 0 0 Result Diagram: 05/31/16 0628 05/31/16627 Objective Remarks LUE: +elbow exfix. incision clean and dry. intact. NVI distally. Range of motion is from 20 to 95 LLE: knee incision healed well. lateral ankle incision healed well . medial skin flap in place and appears healthy. Dressing taken down and skin graft is healthy with no signs of necrosis on the anterior portion of the flap. +ankle exfix present. +knee brace. exquisitely tender to touch over patellar tendon. RLE: incisions healed well. nvi distally. knee brace irritating skin but no skin breakdown. Assessment & Plan Assessment and Plan 1) s/p right femur IMN - (04/07/16) 2) s/p right tibial plateau ORIF - (04/09/16) 3) s/p ligamentous repair with external fixator left elbow - (04/12/16) 4) s/p left ankle ORIF - (04/14/16) s/p Ligamentous repair left knee with exfix 5) s/p- left calcaneus ORIF with free flap 6) s/p left ankle ex-fix, adjust left elbow X fix, 7) s/p Removal of left knee exfix and manipulation with STSG left ankle - (05/26) Pin care twice a day on both external fixators -Nonweightbearing bilateral lower extremities and left upper extremity PROM and AROM of elbow Continue passive range of motion of bilateral knees and right ankle Daily dressing changes to left foot with xeroform/4x4/loosely wrapped ulises wrap Lovenox Incentive spirometry Discharge to rehabilitation when bed available JOVI OSORIO PA-C May 31, 2016 09:18
[2016-05-31] MEDS: DOCUSATE SODIUM 100 MG CAP PO SCH ×2 (09:38→21:03)
[2016-05-31] MEDS: SENNOSIDES 8.6 MG TAB PO SCH (09:38)
[2016-05-31] MEDS: cloNIDine HCL 0.1 MG TAB PO SCH ×2 (09:38→21:03)
[2016-05-31] MEDS: DOCUSATE SODIUM 50 MG/SENNA 8.6 MG TAB PO SCH (09:38)
[2016-05-31] MEDS: LACTULOSE SYRUP 20 GM/30 ML CUP PO SCH (09:38)
[2016-05-31] MEDS: LACTOBACILLUS ACIDOPHILUS TAB PO SCH ×3 (09:38→17:05)
[2016-05-31] MEDS: PREGABALIN 75 MG CAP PO SCH ×2 (09:39→21:03)
[2016-05-31] MEDS: METOPROLOL TARTRATE 50 MG TAB PO SCH ×2 (09:39→21:02)
[2016-05-31] MEDS: FAMOTIDINE 20 MG TAB PO SCH ×2 (09:39→21:02)
[2016-05-31] MEDS: HYDROCHLOROTHIAZIDE 25 MG TAB PO SCH (09:39)
[2016-05-31] MEDS: BISOPROLOL FUMARATE 5 MG TAB PO SCH (09:39)
[2016-05-31] MEDS: NYSTATIN 100,000 U/GM PWD 15 GM BTL TOPICAL SCH ×2 (09:45→21:06)
[2016-05-31] MEDS: ENOXAPARIN SODIUM 30 MG/0.3 ML SYRINGE SQ SCH ×2 (10:49→23:27)
[2016-05-31 12:00] VITALS: BP 143/80; PULSE 76; RESP 18; TEMP 98.4; O2SAT 92
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
[2016-05-31] MEDS ORDERED: FAMO20TA2 PO (15:06)
[2016-05-31] MEDS ORDERED: ENOX30P SQ (15:06)
[2016-05-31] MEDS ORDERED: LACT10SO PO (15:06)
[2016-05-31] MEDS ORDERED: METH500T3 PO (15:06)
[2016-05-31 16:00] VITALS: BP 120/75; PULSE 95; RESP 20; TEMP 98.4; O2SAT 94
[2016-05-31 20:00] VITALS: BP 149/85; PULSE 80; RESP 17; TEMP 97.2; O2SAT 98
[2016-05-31] MEDS: MAGNESIUM HYDROXIDE SUSP 30 ML CUP PO SCH (21:02)
[2016-06-01] MEDS: METHOCARBAMOL 500 MG TAB PO SCH ×4 (01:11→13:03)
[2016-06-01] MEDS: oxyCODONE/ACETAMINOPHEN 7.5 MG/325 MG TAB PO SCH ×4 (01:12→13:04)
[2016-06-01 01:54] VITALS: BP 141/84; PULSE 75; RESP 17; TEMP 96.5; O2SAT 98
[2016-06-01 04:00] VITALS: BP 145/91; PULSE 73; RESP 18; TEMP 96.1; O2SAT 96
[2016-06-01 08:06] VITALS: BP 139/85; PULSE 73; RESP 16; TEMP 97.9; O2SAT 96
[2016-06-01] MEDS: BACITRACIN TOP OINT 15 GM TUBE TOP SCH (09:00)
[2016-06-01] MEDS: NYSTATIN 100,000 U/GM PWD 15 GM BTL TOPICAL SCH (09:00)
[2016-06-01] MEDS: LACTULOSE SYRUP 20 GM/30 ML CUP PO SCH (09:14)
[2016-06-01] MEDS: DOCUSATE SODIUM 50 MG/SENNA 8.6 MG TAB PO SCH (09:14)
[2016-06-01] MEDS: SODIUM CHLORIDE 0.9% FLUSH 5 ML FLUSH IV FLUSH SCH (09:14)
[2016-06-01] MEDS: BISOPROLOL FUMARATE 5 MG TAB PO SCH (09:14)
[2016-06-01] MEDS: LACTOBACILLUS ACIDOPHILUS TAB PO SCH ×2 (09:15→13:04)
[2016-06-01] MEDS: PREGABALIN 75 MG CAP PO SCH (09:15)
[2016-06-01] MEDS: cloNIDine HCL 0.1 MG TAB PO SCH (09:15)
[2016-06-01] MEDS: METOPROLOL TARTRATE 50 MG TAB PO SCH (09:15)
[2016-06-01] MEDS: SENNOSIDES 8.6 MG TAB PO SCH (09:15)
[2016-06-01] MEDS: FAMOTIDINE 20 MG TAB PO SCH (09:15)
[2016-06-01] MEDS: DOCUSATE SODIUM 100 MG CAP PO SCH (09:15)
[2016-06-01] MEDS: HYDROCHLOROTHIAZIDE 25 MG TAB PO SCH (09:15)
[2016-06-01] MEDS: ENOXAPARIN SODIUM 30 MG/0.3 ML SYRINGE SQ SCH (10:45)
[2016-06-01] MEDS ORDERED: ROBA750T PO (10:48)
[2016-06-01] MEDS ORDERED: PERC5TAB12 PO (10:48)
[2016-06-01] MEDS ORDERED: FENT75DI T-DERMAL (10:48)
[2016-06-01] MEDS: LORazepam 1 MG TAB PO SCH (12:00)
[2016-07-09] MEDS ORDERED: ALDA50TA2 PO (10:21)
[2016-07-09] MEDS ORDERED: ERGO1CAP10 PO (10:21)
[2016-07-09] MEDS ORDERED: CALC200S NASAL (10:21)
[2016-07-09] MEDS ORDERED: METO100T PO (10:21)
[2016-07-09] MEDS ORDERED: CELE200C PO (10:21)
[2016-07-09] MEDS ORDERED: LYRI150C PO (10:21)
[2016-07-09] MEDS ORDERED: LORA1TAB12 PO (10:21)
[2016-07-09] MEDS ORDERED: PERC10TA27 PO (10:22)
[2016-07-09] MEDS ORDERED: LACTCAP8 PO (10:22)
[2016-07-09] MEDS ORDERED: TEST1GEL5 TOPICAL (10:22)
[2016-07-09] MEDS ORDERED: CALC-209 PO (10:22)
[2016-07-09] MEDS ORDERED: FERR1TAB36 PO (10:22)
[2016-07-09] MEDS ORDERED: DOCU250C PO (10:22)
[2016-07-09] MEDS ORDERED: VITA10007 PO (10:22)
[2016-07-12] MEDS ORDERED: TEST200I13 IM (06:20)
[2016-07-12] MEDS ORDERED: PERC10TA27 PO (07:55)
== END 2016-06-01 13:40 | DRG 465 ==
LOC: N06A 15:00
PROVIDERS: ADMIT Surgery; ATTEND Surgery
PROC: 0QH Lower Bones, Insertion (ICD-10-PCS; 2016-05-14)
PROC: 0HRNX74 Replacement of Left Foot Skin with Autologous Tissue Substitute, Partial Thickness, External Approach (ICD-10-PCS; 2016-05-26)
PROC: 0HBJXZZ Excision of Left Upper Leg Skin, External Approach (ICD-10-PCS; 2016-05-26)
PROC: 0HRNX74 Replacement of Left Foot Skin with Autologous Tissue Substitute, Partial Thickness, External Approach (ICD-10-PCS; principal; 2016-05-26 10:39)
PROC: 0JDR3ZZ Extraction of Left Foot Subcutaneous Tissue and Fascia, Percutaneous Approach (ICD-10-PCS; 2016-05-26 10:39)
DX: S82.302E Unspecified fracture of lower end of left tibia, subsequent encounter for open fracture type I or II with routine healing (principal); I10 Essential (primary) hypertension; S72.402D Unspecified fracture of lower end of left femur, subsequent encounter for closed fracture with routine healing; S72.91XD Unspecified fracture of right femur, subsequent encounter for closed fracture with routine healing; S82.892D Other fracture of left lower leg, subsequent encounter for closed fracture with routine healing; S92.002D Unspecified fracture of left calcaneus, subsequent encounter for fracture with routine healing; S53.105D Unspecified dislocation of left ulnohumeral joint, subsequent encounter; S33.4XXD Traumatic rupture of symphysis pubis, subsequent encounter; Z74.01 Bed confinement status; V97.89 Other air transport accidents, not elsewhere classified; T79 Certain early complications of trauma, not elsewhere classified
CPT/HCPCS: 73560; 73600; 76000; 80048; 80053; 83735; 85014; 85018; 85025; 85027; 94150; C1713; J0690; J1170; J1580; J1642; J1650; J1885; J2175; J2250; J2270; J2370; J2405; J2710; J3010; J3370; J7050; J7120; L1845

== ENCOUNTER → 2016-07-12 | Day surgery (SDC) | payer OTHER ==
[~2016-07-12] VITALS: Ht 180.3 cm; Wt 100.0 kg
[~2016-07-12] MED LIST changes: +*morphine SULFATE 8 MG/ML PERIprocedure ONLY ONE; +ACETAMINOPHEN 1000 MG/100 ML VIAL IV ONE; +ALDA50TA2 PO; -AMBI5TAB PO; -AMLO10 PO; +AUGM500T7 PO; -BACI500O2 TOP; -BISO10TA2 PO; +BUPIVACAINE HCL PF 0.5% 30 ML VIAL NB ONE; +CALC-209 PO; +CALC200S NASAL; +CELE200C PO; +CHLORHEXIDINE GLUCONATE 4% SOLN 120 ML BTL TOP SCH; -CLON.1 PO; -CYCL1TAB29 PO; -DILA2TAB2 PO; -DILA4TAB2 PO; +DO NOT ADM ANY ANTICOAGULANT DRUGS XX PRN; -DOCU1CAP39 PO; +DOCU250C PO; -ENAL1.25 IV PUSH; -ENOX30P SQ; +ERGO1CAP10 PO; -FAMO20TA2 PO; +FENT25DI T-DERMAL; +FENT75DI T-DERMAL; +FERR1TAB36 PO; +GABA800T PO; -HEPAF100P IVF; -HYDR-3366 PO; -HYDR1INJ IV PUSH; +HYDROmorphone HCL PF 2 MG/ML VIAL ONE; +INSULIN HUMAN REGULAR 1,000 UNITS/10 ML VIAL SQ PRN; -IPRASOL INH; +KETOROLAC TROMETHAMINE 30 MG/ML (IVP) VIAL IVP ONE; -LACT PO; +LACTATED RINGER'S 1000 ML IV SCH; +LACTCAP8 PO; +LORA1TAB12 PO; +LYRI150C PO; -LYRI75CA PO; -METO-309 PO; +METO100T PO; +METOPROLOL TARTRATE 25 MG TAB ONE; +METOPROLOL TARTRATE 25 MG TAB PO PRN; +MIDAZOLAM HCL 2 MG/2 ML VIAL ONE; +MISC-163; +MORPHINE SULFATE 4 MG/ML INJ IV PUSH PRN; -NSFLUSH5 IVF; -NYST10007 TOPICAL; -ONDA4INJ2 IV; +ONDANSETRON HCL 4 MG/2 ML VIAL IV PRN; +PERC10TA27 PO; +PROPOFOL 200 MG/20 ML AMP IV ONE; -SENN8.6T15 PO; +SODIUM CHLOR 0.9% 250 ML INJ 250 ML ONE; +SODIUM CHLORID 0.9% 500 ML IV SCH; +SODIUM CHLORIDE 0.9% FLUSH 5 ML FLUSH IVF PRN; +SODIUM CHLORIDE 0.9% FLUSH 5 ML FLUSH IVF SCH; +TEST1GEL5 TOPICAL; +TEST200I13 IM; +TRANMIS2; +VANCOMYCIN 1000 MG/NS 250 ML (for <70 kg) IV SCH; +VANCOMYCIN HCL 1000 MG VIAL ONE; +VITA10007 PO; +WHEEMIS3; +ceFAZolin 2 GM PREMIX 50 ML IV SCH
[2016-07-12 06:36] VITALS: BP 181/101; PULSE 85; RESP 16; TEMP 99.2; O2SAT 98
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
[2016-07-12 09:45] VITALS: BP 145/88; PULSE 77; RESP 18; TEMP 98.2; O2SAT 97
--- NOTE | 2016-07-12 18:17 | RADRPT ---
EXAM DATE/TIME: 07/12/2016 07:32 [facility] COMPARISON: KNEE LEFT LTD (1 OR 2VWS), May 26, 2016, 11:42. INDICATIONS : Left knee maninpulation. OR. MEDICAL HISTORY : None. SURGICAL HISTORY : Left ankle repair. ENCOUNTER: Subsequent ACUITY: 1 day PAIN SCORE: Non-responsive. LOCATION: Left knee FINDINGS: Two view examination of the left knee demonstrates vertically oriented osseous screws securing the pr oximal fibular fracture. There are some fracture fragments more cephalad, adjacent to the joint itsel f. There also appears to be ossification of the patellar ligament. CONCLUSION: Postoperative changes as above. Ossification of the patellar ligament versus old avulsion fract ure of the same. Juan José Taylor MD on July 12, 2016 at 18:13 Board Certified Radiologist. This report was verified electronically.
== END | disposition home or self-care (01) ==
LOC: HSDC 05:42
PROVIDERS: ATTEND Orthopaedic Surgery Orthopaedic Trauma
DX: M24.662 Ankylosis, left knee (principal); S82.101D Unspecified fracture of upper end of right tibia, subsequent encounter for closed fracture with routine healing
CPT/HCPCS: 01380; 20694; 27570; 73560; 76000; J0131; J1170; J1885; J2250; J2270; J3010; J3370; J7050; J7120

== ENCOUNTER 2016-11-03 18:56 | Inpatient (IN) | payer OTHER ==
[~2016-11-03] VITALS: Ht 177.8 cm; Wt 100.0 kg
[~2016-11-03 18:56] MED LIST changes: -*morphine SULFATE 8 MG/ML PERIprocedure ONLY ONE; -ACETAMINOPHEN 1000 MG/100 ML VIAL IV ONE; -AUGM500T7 PO; -BUPIVACAINE HCL PF 0.5% 30 ML VIAL NB ONE; -CHLORHEXIDINE GLUCONATE 4% SOLN 120 ML BTL TOP SCH; -DO NOT ADM ANY ANTICOAGULANT DRUGS XX PRN; -FENT25DI T-DERMAL; -GABA800T PO; -HYDROmorphone HCL PF 2 MG/ML VIAL ONE; -INSULIN HUMAN REGULAR 1,000 UNITS/10 ML VIAL SQ PRN; -KETOROLAC TROMETHAMINE 30 MG/ML (IVP) VIAL IVP ONE; -LACTATED RINGER'S 1000 ML IV SCH; -METOPROLOL TARTRATE 25 MG TAB ONE; -METOPROLOL TARTRATE 25 MG TAB PO PRN; -MIDAZOLAM HCL 2 MG/2 ML VIAL ONE; -MORPHINE SULFATE 4 MG/ML INJ IV PUSH PRN; -ONDANSETRON HCL 4 MG/2 ML VIAL IV PRN; -PROPOFOL 200 MG/20 ML AMP IV ONE; -SODIUM CHLOR 0.9% 250 ML INJ 250 ML ONE; -SODIUM CHLORID 0.9% 500 ML IV SCH; -SODIUM CHLORIDE 0.9% FLUSH 5 ML FLUSH IVF PRN; -SODIUM CHLORIDE 0.9% FLUSH 5 ML FLUSH IVF SCH; -VANCOMYCIN 1000 MG/NS 250 ML (for <70 kg) IV SCH; -VANCOMYCIN HCL 1000 MG VIAL ONE; -ceFAZolin 2 GM PREMIX 50 ML IV SCH
[2016-11-03 19:03] VITALS: BP 126/76; PULSE 132; RESP 15; TEMP 100.3; O2SAT 97
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
[2016-11-03] MEDS ORDERED: FENT25DI T-DERMAL (19:45)
[2016-11-03] MEDS: SODIUM CHLOR 0.9% 1000 ML INJ 1,000 ML IV SCH (19:46)
[2016-11-03 20:03] LABS: AUTOMATED NEUTROPHIL # 25.4 TH/MM3 (1.8-7.7); BASOPHIL # 0.1 TH/MM3 (0-0.2); BASOPHIL % 0.2 % (0.0-2.0); EOSINOPHIL # 0.1 TH/MM3 (0-0.4); EOSINOPHIL % 0.2 % (0.0-4.0); HEMATOCRIT 38.2 % (39.0-51.0); HEMO FLAGS DIFF FINAL; LYMPH % 5.2 % (9.0-44.0); LYMPHOCYTE # 1.5 TH/MM3 (1.0-4.8); MEAN CELL VOLUME 82.6 FL (80.0-100.0); MEAN CORPUSCULAR HEMOGLOBIN 27.7 PG (27.0-34.0); MEAN CORPUSCULAR HGB CONC 33.6 % (32.0-36.0); MONO % 6.6 % (0.0-8.0); NEUT % 87.8 % (16.0-70.0); PLATELET COUNT 234 TH/MM3 (150-450); RED BLOOD COUNT 4.63 MIL/MM3 (4.50-5.90); RED CELL DISTRIBUTION WIDTH 14.2 % (11.6-17.2); WHITE BLOOD COUNT 28.9 TH/MM3 (4.0-11.0)
[2016-11-03] MEDS ORDERED: GABA800T PO (20:03)
[2016-11-03 20:04] LABS: BLOOD, URINE SMALL (NEG); COMMENT (UR) CATH-CULTURE IND; CULTURE IF INDICATED CATH CULTURE IND; GLUCOSE,URINE NEG (NEG); HYALINE CAST, URINE 1 /lpf (RARE); KETONE, URINE NEG (NEG); MUCUS URINE FEW /lpf (OCC); NITRITE,URINE NEG (NEG); PH, URINE 5.5 (5.0-8.5); SQUAMOUS EPITHELIAL CELL URINE <1 /hpf (0-5); URINE COLOR YELLOW (YELLW/STRAW)
--- NOTE | 2016-11-03 20:26 | RADRPT ---
EXAM DATE/TIME: 11/03/2016 19:52 [facility] COMPARISON: CHEST SINGLE AP, May 01, 2016, 18:10. INDICATIONS : Fever. MEDICAL HISTORY : Hypertension. SURGICAL HISTORY : ORIF left lower leg. ENCOUNTER: Initial ACUITY: 2 days PAIN SCORE: 0/10 LOCATION: Bilateral chest FINDINGS: A single view of the chest demonstrates the lungs to be symmetrically aerated without evidence of mas s, infiltrate or effusion. The cardiomediastinal contours are unremarkable. Osseous structures are intact. There are multiple overlying electrocardiogram leads. CONCLUSION: No acute disease. There is no evidence of pneumonia. Willy Goodrich MD on November 03, 2016 at 20:24 Board Certified Radiologist. This report was verified electronically.
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
[2016-11-03 21:13] VITALS: BP 125/77; PULSE 123; RESP 18; O2SAT 93
[2016-11-03] MEDS ORDERED: cefTRIAXone INJ 1,000 MG in SODIUM CHLORIDE 0.9% INJ 100 ML IV ONE (21:15)
[2016-11-03] MEDS ORDERED: SODIUM CHLOR 0.9% 1000 ML INJ 1,000 ML IV ONE (21:15)
[2016-11-03 21:19] LABS: ANION GAP 10 MEQ/L (5-15); BICARBONATE 25.2 MEQ/L (21.0-32.0); BLOOD UREA NITROGEN 26 MG/DL (7-18); CHLORIDE 99 MEQ/L (98-107); GLOMERULAR FILTRATION RATE 52 ML/MIN (>89); POTASSIUM 3.7 MEQ/L (3.5-5.1); SODIUM (NA) 134 MEQ/L (136-145)
[2016-11-03 21:20] VITALS: BP 116/68; PULSE 123; RESP 16; O2SAT 91
[2016-11-03 21:20] LABS: ALT (GPT) 22 U/L (12-78); AST (GOT) 12 U/L (15-37)
[2016-11-03 21:23] LABS: ALKALINE PHOSPHATASE 112 U/L (45-117); TOTAL BILIRUBIN ADULT 1.4 MG/DL (0.2-1.0)
[2016-11-03 21:54] LABS: LACTIC ACID GHOST NOT REPORTABLE
[2016-11-03] MEDS ORDERED: SODIUM CHLORIDE 0.9% FLUSH 10 ML FLUSH IV FLUSH PRN (22:15)
[2016-11-03] MEDS ORDERED: NALOXONE HCL 0.4 MG/ML AMP IV PRN (22:15)
[2016-11-03] MEDS ORDERED: ACETAMINOPHEN 325 MG TAB PO PRN (22:15)
[2016-11-03] MEDS ORDERED: MAGNESIUM HYDROXIDE SUSP 30 ML CUP PO PRN (22:15)
[2016-11-03] MEDS ORDERED: ONDANSETRON HCL 4 MG/2 ML VIAL IVP PRN (22:15)
[2016-11-03 22:25] VITALS: O2SAT 98
[2016-11-03 22:37] VITALS: PULSE 108
[2016-11-03] MEDS: HEPARIN SODIUM - SQ 10,000 UNITS/ML VIAL SQ SCH (22:52)
[2016-11-04] VITALS (7 sets, daily range): BP systolic 126–150; BP diastolic 69–85; PULSE 85–122; RESP 17–20; TEMP 96.3–101.5; O2SAT 93–98
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
[2016-11-04] MEDS ORDERED: SODIUM CHLOR 0.9% 1000 ML INJ 1,000 ML IV ONE (00:30)
[2016-11-04] MEDS: oxyCODONE/ACETAMINOPHEN 10 MG/325 MG TAB PO PRN ×3 (01:45→17:39)
[2016-11-04] MEDS: CIPROFLOXACIN 400 MG PREMIX 200 ML IV SCH ×2 (01:46→13:20)
[2016-11-04 05:13] LABS: AUTOMATED NEUTROPHIL # 19.4 TH/MM3 (1.8-7.7); BASOPHIL # 0.1 TH/MM3 (0-0.2); BASOPHIL % 0.2 % (0.0-2.0); EOSINOPHIL # 0.1 TH/MM3 (0-0.4); EOSINOPHIL % 0.3 % (0.0-4.0); HEMATOCRIT 33.7 % (39.0-51.0); HEMO FLAGS DIFF FINAL; LYMPH % 6.5 % (9.0-44.0); LYMPHOCYTE # 1.4 TH/MM3 (1.0-4.8); MEAN CELL VOLUME 83.9 FL (80.0-100.0); MEAN CORPUSCULAR HEMOGLOBIN 27.8 PG (27.0-34.0); MEAN CORPUSCULAR HGB CONC 33.1 % (32.0-36.0); MONO % 5.2 % (0.0-8.0); NEUT % 87.8 % (16.0-70.0); PLATELET COUNT 176 TH/MM3 (150-450); RED BLOOD COUNT 4.02 MIL/MM3 (4.50-5.90); RED CELL DISTRIBUTION WIDTH 14.4 % (11.6-17.2); WHITE BLOOD COUNT 22.1 TH/MM3 (4.0-11.0)
[2016-11-04 05:39] LABS: BICARBONATE 24.8 MEQ/L (21.0-32.0); POTASSIUM 3.4 MEQ/L (3.5-5.1)
[2016-11-04] MEDS: HEPARIN SODIUM - SQ 10,000 UNITS/ML VIAL SQ SCH ×2 (06:18→13:20)
[2016-11-04] MEDS: SODIUM CHLOR 0.9% 1000 ML INJ 1,000 ML IV SCH ×3 (06:18→19:44)
--- NOTE | 2016-11-04 07:49 | PD.ORT.PN ---
Subjective Subjective Remarks admitted for UTI with subsequent sepsis s/p multiple ortho injuries and surgeries by Dr Damon doing well. states has been progressing with therapy. was originally scheduled to be seen in office today Objective Vitals Vital Signs Date Time Temp Pulse Resp B/P Pulse Ox O2 Delivery O2 Flow Rate FiO2 11/04/16 04:00 96.3 85 20 126/69 98 11/04/16 00:00 100.0 122 20 150/85 98 11/03/16 22:37 108 11/03/16 22:25 98 Nasal Cannula 2.00 11/03/16 21:21 95 Nasal Cannula 2 11/03/16 21:20 123 16 116/68 91 Room Air 11/03/16 21:13 123 18 125/77 93 Room Air 11/03/16 19:39 97 Room Air 11/03/16 19:39 Room Air 11/03/16 19:03 100.3 132 15 126/76 97 Room Air I/O 11/03/16 11/03/16 11/03/16 11/04/16 11/04/16 11/04/16 07:00 15:00 23:00 07:00 15:00 23:00 Intake Total 1858 ml Output Total 850 ml Balance 1008 ml Intake Oral 120 ml IV Total 1738 ml Output Urine Total 850 ml Result Diagram: 11/04/1641811/04/16418 Imaging Last 24 hours Impressions Lower Extremity Ultrasound 11/03/161918 Signed Impressions: Service Date/Time: Thursday, November 03, 2016 19:59 - CONCLUSION: 1. No evidence of deep venous thrombosis. 2. Lower extremity edema. Willy Goodrich MD Chest X-Ray 11/03/161918 Signed Impressions: Service Date/Time: Thursday, November 03, 2016 19:52 - CONCLUSION: No acute disease. There is no evidence of pneumonia. Willy Goodrich MD Objective Remarks LUE: incisions clean and dry. healed. ROM 10-120deg. full sensation to median/ ulnar nerve. full radial nerve function LLE: 3+ swelling of leg. healed skin graft. pain with motion of ankle. NVI. patella palpated and sitting laterally on knee RLE: incisions healed. NVI distally. no pain with motion. Assessment & Plan Assessment and Plan 1) Healed left elbow fx/dislocation 2) Healed right tibial plateau fx 3) Healed left ankle fxs with skin grafting 4) subluxing left patella -WBAT all 4 extremities -aggressive ROM -will order xrays today of bilateral knees, left ankle, left elbow Diego Cochran Nov 04, 2016 07:49
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
[2016-11-04] MEDS: SODIUM CHLORIDE 0.9% FLUSH 10 ML FLUSH IV FLUSH SCH ×2 (09:00→20:22)
[2016-11-04] MEDS ORDERED: POTASSIUM CHLORIDE 10 MEQ CONTROLLED RELEASE TAB PO ONE (09:15)
[2016-11-04] MEDS ORDERED: cefTRIAXone INJ 1,000 MG in SODIUM CHLORIDE 0.9% INJ 100 ML IV SCH (09:15)
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
[2016-11-04] MEDS: GABAPENTIN 400 MG CAP PO SCH ×3 (10:32→17:38)
[2016-11-04] MEDS: METOPROLOL TARTRATE 100 MG TAB PO SCH ×2 (10:32→20:21)
[2016-11-04] MEDS: DOCUSATE SODIUM 50 MG/SENNA 8.6 MG TAB PO SCH ×2 (10:33→20:22)
[2016-11-04] MEDS ORDERED: GABAPENTIN 400 MG CAP PO SCH (13:00)
[2016-11-04] MEDS: DOCUSATE CALCIUM 240 MG CAP PO SCH (13:19)
[2016-11-04] MEDS: CALCIUM/VITAMIN D 250 MG/125 U TAB PO SCH (13:19)
[2016-11-04] MEDS: fentaNYL 25 MCG/HR PATCH T-DERMAL SCH (13:46)
--- NOTE | 2016-11-04 15:32 | RADRPT ---
EXAM DATE/TIME: 11/04/2016 11:03 [facility] COMPARISON: ELBOW LEFT LIMITED (AP & LAT), April 12, 2016, 10:12. CT ELBOW LEFT W/O CONTRAST, April 08 16, 16:47. ELBOW LEFT LIMITED (AP & LAT), April 26, 2016, 7:38. KNEE RIGHT LTD (1 OR 2 VWS), Oct, 10:58. INDICATIONS : Evaluate fracture of left elbow. MEDICAL HISTORY : None. SURGICAL HISTORY : Previous external fixator. ENCOUNTER: Subsequent ACUITY: 4 - 6 months PAIN SCORE: 9/10 LOCATION: Left Elbow FINDINGS: The examination demonstrates fracture of the previous external fixation hardware. There are degenerat ernesto changes within the elbow. The elbow appears well aligned. I do not see an acute fracture. CONCLUSION: 1. The patient has tracks within the fibula from a previous external fixator. There are degenerative changes within the elbow. No new fractures identified. Kenan Villagran MD on November 04, 2016 at 15:27 Board Certified Radiologist. This report was verified electronically.
--- NOTE | 2016-11-04 15:33 | RADRPT ---
EXAM DATE/TIME: 11/04/2016 10:58 [facility] COMPARISON: KNEE LEFT LTD (1 OR 2VWS), November 04, 2016, 10:57. INDICATIONS : Evaluate right leg fracture. Follow-up. MEDICAL HISTORY : None. SURGICAL HISTORY : ORIF right leg. ENCOUNTER: Subsequent ACUITY: 4 - 6 months PAIN SCORE: 8/10 LOCATION: Right Knee FINDINGS: The exam demonstrates plating of a proximal tibial fracture. There is healing of the fracture. There is mild medial angulation of the tibial plateau. There degenerative changes within the knee.Note is m ayush of a healed fibular fracture as well. CONCLUSION: 1. The patient's fractures of the tibia and fibula are healing. 2. Medial angulation of the tibial plateau. Kenan Villagran MD on November 04, 2016 at 15:30 Board Certified Radiologist. This report was verified electronically.
--- NOTE | 2016-11-04 15:34 | RADRPT ---
EXAM DATE/TIME: 11/04/2016 10:57 [facility] COMPARISON: ANKLE LEFT COMPLETE ([id number]), November 04, 2016, 10:53. INDICATIONS : Evaluate fracture of left proximal tibia. MEDICAL HISTORY : None. SURGICAL HISTORY : Hardware placement. ENCOUNTER: Subsequent ACUITY: 4 - 6 months PAIN SCORE: 9/10 LOCATION: Left Knee. FINDINGS: There are moderate degenerative changes within the knee. There is a partially threaded screw evident within the proximal fibula. There are several bone fragments adjacent to the lateral compartment. The re is significant widening of the medial compartment suggesting medial collateral ligamentous injury. CONCLUSION: 1. Widening of the medial joint compartment suggesting injury of the medial collateral ligament. 2. Tricompartmental arthritic changes. 3. Bone fragments adjacent to the lateral aspect of the knee no definite donor site is seen. Kenan Villagran MD on November 04, 2016 at 15:31 Board Certified Radiologist. This report was verified electronically.
--- NOTE | 2016-11-04 15:35 | RADRPT ---
EXAM DATE/TIME: 11/04/2016 10:53 [facility] COMPARISON: CHEST SINGLE AP, November 03, 2016, 19:52. INDICATIONS : Evaluate left ankle fracture. Follow-up. MEDICAL HISTORY : None. SURGICAL HISTORY : surgical repair of fracture. ENCOUNTER: Subsequent ACUITY: 4 - 6 months PAIN SCORE: 8/10 LOCATION: Left Ankle FINDINGS: There is extensive soft tissue swelling of the ankle and left foot. There are 2 screws across a media l malleolus fracture. There is plating of the distal fibula. The hardware appears intact. The bone fr agments appear fairly well aligned. Note is made of a large bone fragment along the plantar surface of the foot which appears to originat e from the calcaneus. This is only partially visualized. CONCLUSION: 1. The patient's ankle fracture appears well aligned and the hardware is intact. 2. There is a large bone fragment in the foot which appears to arise from the calcaneus. The foot was not imaged in detail. 3. Extensive soft tissue swelling. Kenan Villagran MD on November 04, 2016 at 15:32 Board Certified Radiologist. This report was verified electronically.
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
[2016-11-04] MEDS ORDERED: DIATRIZOATE MEGLUM/DIATRIZOATE SOD 9 ML CUP PO ONE (18:15)
[2016-11-04] MEDS: ACETAMINOPHEN 325 MG TAB PO PRN (20:21)
[2016-11-04] MEDS: PIPERACIL-TAZO 3.375 GM PREMIX 50 ML IV SCH (22:03)
[2016-11-05] VITALS: BP 146/81; PULSE 100; RESP 17; TEMP 100.6; O2SAT 95
[2016-11-05] MEDS ORDERED: IOHEXOL 350 MG/ML 10 ML VIAL (for RAD DIAG) IV ONE (00:01)
--- NOTE | 2016-11-05 00:18 | RADRPT ---
EXAM DATE/TIME: 11/04/2016 23:48 [facility] COMPARISON: CT ABDOMEN & PELVIS W CONTRAST, April 19, 2016, 20:23. INDICATIONS : Urinary tract infection with fever. Possible sepsis. IV CONTRAST: 96 cc Omnipaque 350 (iohexol) IV ORAL CONTRAST: No oral contrast ingested. RADIATION DOSE: 16.34 CTDIvol (mGy) MEDICAL HISTORY : Cardiovascular disease. Hypertension. SURGICAL HISTORY : None. ENCOUNTER: Initial ACUITY: 1 day PAIN SCALE: 0/10 LOCATION: abdomen TECHNIQUE: Volumetric scanning of the abdomen and pelvis was performed. Using automated exposure control and ad justment of the mA and/or kV according to patient size, radiation dose was kept as low as reasonably achievable to obtain optimal diagnostic quality images. FINDINGS: Chronic diverticular changes are seen of the sigmoid colon. There is no evidence of a colovesical fis mari. Within the fistula tract is a 3.3 cm thick walled air collection, series 2 image 78. A smaller contained air collection is seen to the right measured about 2 cm in size. Minimal fluid present in b oth cavities. Urinary bladder is thick walled and indurated. There is also edema in the fat surroundi ng the urinary bladder. Delacruz catheter is present. I don't see any acute high-grade inflammatory willams ges of the colon. Liver is slightly fatty infiltrated. Spleen, pancreas and adrenal glands are within normal limits. Th e bilateral renal cysts are again noted, largest of the right upper pole measuring 5.6 cm. CONCLUSION: Chronic sigmoid colon diverticular disease with contained perforations, colovesical fistula and secon jose maria cystitis. Vinicius Hillman MD on November 05, 2016 at 0:05 Board Certified Radiologist. This report was verified electronically.
[2016-11-05] MEDS: oxyCODONE/ACETAMINOPHEN 10 MG/325 MG TAB PO PRN ×3 (00:23→17:56)
[2016-11-05] MEDS: HEPARIN SODIUM - SQ 10,000 UNITS/ML VIAL SQ SCH ×4 (00:23→21:59)
[2016-11-05] MEDS: CIPROFLOXACIN 400 MG PREMIX 200 ML IV SCH (00:23)
[2016-11-05] MEDS: PIPERACIL-TAZO 3.375 GM PREMIX 50 ML IV SCH ×4 (03:04→21:57)
[2016-11-05] MEDS: SODIUM CHLOR 0.9% 1000 ML INJ 1,000 ML IV SCH ×3 (03:05→21:58)
[2016-11-05 04:00] VITALS: BP 121/72; PULSE 87; RESP 17; TEMP 99.4; O2SAT 95
--- NOTE | 2016-11-05 07:09 | PD.ORT.PN ---
Subjective Subjective Remarks admitted for UTI with subsequent sepsis s/p multiple ortho injuries and surgeries by Dr Damon doing well. states has been progressing with therapy. Objective Vitals Vital Signs Date Time Temp Pulse Resp B/P Pulse Ox O2 Delivery O2 Flow Rate FiO2 11/05/16 04:00 99.4 87 17 121/72 95 11/05/16 00:00 100.6 100 17 146/81 95 11/04/16 20:00 101.5 117 17 133/78 97 11/04/16 16:00 98.8 103 18 137/79 93 11/04/16 14:46 15 11/04/16 12:00 98.7 107 18 131/78 93 11/04/16 11:31 18 11/04/16 08:58 97 Nasal Cannula 2.00 11/04/16 08:00 98.2 98 17 134/77 98 I/O 11/04/16 11/04/16 11/04/16 11/05/16 11/05/16 11/05/16 07:00 15:00 23:00 07:00 15:00 23:00 Intake Total 1858 ml 1200 ml 1829 ml 1120 ml Output Total 850 ml 1700 ml 1000 ml 600 ml Balance 1008 ml -500 ml 829 ml 520 ml Intake Oral 120 ml 1200 ml 240 ml 240 ml IV Total 1738 ml 1589 ml 880 ml Output Urine Total 850 ml 1700 ml 1000 ml 600 ml # Voids 1 # Bowel Movements 0 1 Result Diagram: 11/04/16 0419 11/04/16 041 Imaging Last 24 hours Impressions Lower Extremity Ultrasound 11/03/161918 Signed Impressions: Service Date/Time: Thursday, November 03, 2016 19:59 - CONCLUSION: 1. No evidence of deep venous thrombosis. 2. Lower extremity edema. Willy Goodrich MD Chest X-Ray 11/03/161918 Signed Impressions: Service Date/Time: Thursday, November 03, 2016 19:52 - CONCLUSION: No acute disease. There is no evidence of pneumonia. Willy Goodrich MD Objective Remarks LUE: incisions clean and dry. healed. ROM 10-120deg. full sensation to median/ ulnar nerve. full radial nerve function LLE: 3+ swelling of leg. healed skin graft. pain with motion of ankle. NVI. patella palpated and sitting laterally on knee RLE: incisions healed. NVI distally. no pain with motion. Assessment & Plan Assessment and Plan 1) Healed left elbow fx/dislocation 2) Healed right tibial plateau fx 3) Healed left ankle fxs with skin grafting 4) subluxing left patella -WBAT all 4 extremities -aggressive ROM -will order MRI left knee today -once MRI completed, ortho cleared for discharge -f/u with Marisol or [facility] in 1 month Diego Cochran Nov 05, 2016 07:09
[2016-11-05 07:16] LABS: HEMATOCRIT 36.6 % (39.0-51.0); MEAN CELL VOLUME 84.1 FL (80.0-100.0); MEAN CORPUSCULAR HGB CONC 33.4 % (32.0-36.0); PLATELET COUNT 161 TH/MM3 (150-450); RED BLOOD COUNT 4.35 MIL/MM3 (4.50-5.90); RED CELL DISTRIBUTION WIDTH 14.4 % (11.6-17.2); REVIEW FLAG FINAL; WHITE BLOOD COUNT 9.3 TH/MM3 (4.0-11.0)
[2016-11-05 07:46] LABS: MAGNESIUM 1.9 MG/DL (1.5-2.5)
[2016-11-05 08:00] VITALS: BP 136/77; PULSE 107; RESP 17; TEMP 100.3; O2SAT 93
[2016-11-05] MEDS: ACETAMINOPHEN 325 MG TAB PO PRN (08:07)
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
[2016-11-05] MEDS: SODIUM CHLORIDE 0.9% FLUSH 10 ML FLUSH IV FLUSH SCH ×2 (09:00→21:00)
[2016-11-05] MEDS: DOCUSATE SODIUM 50 MG/SENNA 8.6 MG TAB PO SCH ×2 (09:45→21:59)
[2016-11-05] MEDS: DOCUSATE CALCIUM 240 MG CAP PO SCH (09:45)
[2016-11-05] MEDS: GABAPENTIN 400 MG CAP PO SCH ×3 (09:45→17:56)
[2016-11-05] MEDS: CALCIUM/VITAMIN D 250 MG/125 U TAB PO SCH (09:46)
[2016-11-05] MEDS: METOPROLOL TARTRATE 100 MG TAB PO SCH ×2 (09:46→21:59)
[2016-11-05 12:00] VITALS: BP 131/78; PULSE 87; RESP 17; TEMP 98.6; O2SAT 95
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
--- NOTE | 2016-11-05 12:25 | HHI.IDPN ---
Subjective Subjective Remarks febrile with T max of 101.5 CT showed diverticulitis with contained perforations and coloviicular fistula Antibiotics zosyn Allergies: Coded Allergies: No Known Allergies (Unverified , 11/03/16) Objective . Vital Signs Date Time Temp Pulse Resp B/P Pulse Ox O2 Delivery O2 Flow Rate FiO2 11/05/16 08:00 100.3 107 17 136/77 93 11/05/16 07:24 18 11/05/16 04:00 99.4 87 17 121/72 95 11/05/16 00:00 100.6 100 17 146/81 95 11/04/16 20:00 101.5 117 17 133/78 97 11/04/16 16:00 98.8 103 18 137/79 93 11/04/16 14:46 15 11/04/16 11/04/16 11/05/16 15:00 23:00 07:00 Intake Total 1200 ml 1829 ml 1120 ml Output Total 1700 ml 1000 ml 600 ml Balance -500 ml 829 ml 520 ml Intake Oral 1200 ml 240 ml 240 ml IV Total 1589 ml 880 ml Output Urine Total 1700 ml 1000 ml 600 ml # Voids 1 # Bowel Movements 0 1 . Laboratory Tests Test 11/03/16 11/04/16 11/05/16 19:35 04:19 06:52 White Blood Count 28.9 TH/MM3 22.1 TH/MM3 9.3 TH/MM3 Red Blood Count 4.63 MIL/MM3 4.02 MIL/MM3 4.35 MIL/MM3 Hemoglobin 12.8 GM/DL 11.2 GM/DL 12.2 GM/DL Hematocrit 38.2 % 33.7 % 36.6 % Mean Corpuscular Volume 82.6 FL 83.9 FL 84.1 FL Mean Corpuscular Hemoglobin 27.7 PG 27.8 PG 28.0 PG Mean Corpuscular Hemoglobin 33.6 % 33.1 % 33.4 % Concent Red Cell Distribution Width 14.2 % 14.4 % 14.4 % Platelet Count 234 TH/MM3 176 TH/MM3 161 TH/MM3 Mean Platelet Volume 8.0 FL 8.0 FL 7.7 FL Neutrophils (%) (Auto) 87.8 % 87.8 % Lymphocytes (%) (Auto) 5.2 % 6.5 % Monocytes (%) (Auto) 6.6 % 5.2 % Eosinophils (%) (Auto) 0.2 % 0.3 % Basophils (%) (Auto) 0.2 % 0.2 % Neutrophils # (Auto) 25.4 TH/MM3 19.4 TH/MM3 Lymphocytes # (Auto) 1.5 TH/MM3 1.4 TH/MM3 Monocytes # (Auto) 1.9 TH/MM3 1.1 TH/MM3 Eosinophils # (Auto) 0.1 TH/MM3 0.1 TH/MM3 Basophils # (Auto) 0.1 TH/MM3 0.1 TH/MM3 CBC Comment DIFF FINAL DIFF FINAL Differential Comment Laboratory Tests Test 11/03/16 11/03/16 11/04/16 11/05/16 19:35 22:50 04:19 06:52 Sodium Level 134 MEQ/L 136 MEQ/L 136 MEQ/L Potassium Level 3.7 MEQ/L 3.4 MEQ/L 4.0 MEQ/L Chloride Level 99 MEQ/L 103 MEQ/L 101 MEQ/L Carbon Dioxide Level 25.2 MEQ/L 24.8 MEQ/L 26.0 MEQ/L Anion Gap 10 MEQ/L 8 MEQ/L 9 MEQ/L Blood Urea Nitrogen 26 MG/DL 18 MG/DL 9 MG/DL Creatinine 1.45 MG/DL 1.14 MG/DL 0.95 MG/DL Estimat Glomerular Filtration 52 ML/MIN 68 ML/MIN 84 ML/MIN Rate Random Glucose 198 MG/DL 175 MG/DL 112 MG/DL Lactic Acid Level 2.2 mmol/L 1.4 mmol/L Calcium Level 9.0 MG/DL 8.5 MG/DL 8.8 MG/DL Total Bilirubin 1.4 MG/DL Aspartate Amino Transf 12 U/L (AST/SGOT) Alanine Aminotransferase 22 U/L (ALT/SGPT) Alkaline Phosphatase 112 U/L Total Protein 8.3 GM/DL Albumin 3.6 GM/DL Magnesium Level 1.9 MG/DL Microbiology Date/Time Procedure Status Source Growth 11/03/16 19:25 Aerobic Blood Culture - Preliminary Resulted Blood Peripheral NO GROWTH IN 2 DAYS 11/03/16 19:25 Anaerobic Blood Culture - Preliminary Resulted Blood Peripheral NO GROWTH IN 2 DAYS 11/03/16 19:30 Aerobic Blood Culture - Preliminary Resulted Blood Peripheral NO GROWTH IN 2 DAYS 11/03/16 19:30 Anaerobic Blood Culture - Preliminary Resulted Blood Peripheral NO GROWTH IN 2 DAYS 11/03/16 19:35 Urine Culture - Final Complete Urine Catheterized Urine NO GROWTH IN 48 HOURS. Imaging Last Impressions Renal Ultrasound 11/04/16 Signed Impressions: Service Date/Time: October 08:14 - CONCLUSION: No obstruction. 2 small simple cysts involving the right kidney. Josiah Bernal Jr., MD Knee X-Ray 11/04/16 Signed Impressions: Service Date/Time: October 10:57 - CONCLUSION: 1. Widening of the medial joint compartment suggesting injury of the medial collateral ligament. 2. Tricompartmental arthritic changes. 3. Bone fragments adjacent to the lateral aspect of the knee no definite donor site is seen. Kenan Villagran MD Elbow X-Ray 11/04/16 Signed Impressions: Service Date/Time: October 11:03 - CONCLUSION: 1. The patient has tracks within the fibula from a previous external fixator. There are degenerative changes within the elbow. No new fractures identified. Kenan Villagran MD Ankle X-Ray 11/04/16 Signed Impressions: Service Date/Time: October 10:53 - CONCLUSION: 1. The patient' s ankle fracture appears well aligned and the hardware is intact. 2. There is a large bone fragment in the foot which appears to arise from the calcaneus. The foot was not imaged in detail. 3. Extensive soft tissue swelling. Kenan Villagran MD Abdomen/Pelvis CT 11/04/16 Signed Impressions: Service Date/Time: October 23:48 - CONCLUSION: Chronic sigmoid colon diverticular disease with contained perforations, colovesical fistula and secondary cystitis. Vinicius Hillman MD Lower Extremity Ultrasound 11/03/161918 Signed Impressions: Service Date/Time: Thursday, November 03, 2016 19:59 - CONCLUSION: 1. No evidence of deep venous thrombosis. 2. Lower extremity edema. Willy Goodrich MD Chest X-Ray 11/03/161918 Signed Impressions: Service Date/Time: Thursday, November 03, 2016 19:52 - CONCLUSION: No acute disease. There is no evidence of pneumonia. Willy Goodrich MD Physical Exam CONSTITUTIONAL/GENERAL: This is an adequately nourished patient, in no apparent distress. TUBES/LINES/DRAINS: SKIN: No jaundice, rashes, or lesions. Skin temperature appropriate. Not diaphoretic. HEAD: Atraumatic. Normocephalic. EYES: Pupils equal and round and reactive. No scleral icterus. No injection or drainage. Fundi not examined. ENT: Hearing grossly normal. Nose without bleeding or purulent drainage. Oral mucosa without visible erythema, exudates, masses, or lesions. CARDIOVASCULAR: Regular rate and rhythm without murmurs, gallops, or rubs. No JVD. Peripheral pulses symmetric. RESPIRATORY/CHEST: Symmetric, unlabored respirations. Clear to auscultation. Breath sounds equal bilaterally. No wheezes, rales, or rhonchi. GASTROINTESTINAL: Abdomen soft, non-tender, nondistended. No hepato-splenomegaly , or palpable masses. No guarding. Bowel sounds present. GENITOURINARY: Without palpable bladder distension. Delacruz catheter in place with nathan fairly clear urine MUSCULOSKELETAL: Extremities without clubbing, cyanosis, or edema. No joint tenderness or effusion noted. No calf tenderness. No mottling or clubbing. Multiple incisions on b/l LE - healed Few scabs still present on L foot incision, no erythema, no edema, no open wounds LYMPHATICS: No palpable cervical or supraclavicular adenopathy. NEUROLOGICAL: Awake and alert. Motor and sensory grossly within normal limits. Follows commands. Clear speech. Moves all extremities. PSYCHIATRIC: No obvious anxiety/depression. no apparent hallucinations or other psychotic thought process. Assessment & Plan Remarks Acute o chronic diverituclitis with contained perforation and colovisucular fistula UTI, urosepsis, 2/2 fistula - clx negative - final - pneumouria prior to presentation Multiple ortho injuries, still on a lot of pain medx Ongoing fever 2/2 diverticulitis and UTI, sepsis Severe leukocytosuis - improved - cont zosyn - consult colorectal surgery - pt is not ready for d/c 2/2 ongoing clincal sepsis, newly diagnosed colovesicular fistula Discussed Condition With Dr Ernandez pt Jessi Gong MD Nov 05, 2016 12:25
[2016-11-05 16:00] VITALS: BP 131/81; PULSE 93; RESP 18; TEMP 97.4; O2SAT 91
[2016-11-05 20:00] VITALS: BP 132/79; PULSE 105; PULSE 107; RESP 17; TEMP 100.2; O2SAT 95
[2016-11-06] VITALS (8 sets, daily range): BP systolic 124–144; BP diastolic 71–95; PULSE 72–91; RESP 14–18; TEMP 97.5–99; O2SAT 95–98
[2016-11-06] MEDS: PIPERACIL-TAZO 3.375 GM PREMIX 50 ML IV SCH ×3 (01:36→13:25)
[2016-11-06] MEDS: oxyCODONE/ACETAMINOPHEN 10 MG/325 MG TAB PO PRN ×2 (01:36→08:33)
[2016-11-06] MEDS: SODIUM CHLOR 0.9% 1000 ML INJ 1,000 ML IV SCH ×3 (01:37→21:36)
[2016-11-06] MEDS: HEPARIN SODIUM - SQ 10,000 UNITS/ML VIAL SQ SCH ×3 (05:04→21:32)
--- NOTE | 2016-11-06 07:09 | PD.ORT.PN ---
Subjective Subjective Remarks admitted for UTI with subsequent sepsis s/p multiple ortho injuries and surgeries by Dr Damon doing well. states has been progressing with therapy. MRI completed of left knee yesterday Objective Vitals Vital Signs Date Time Temp Pulse Resp B/P Pulse Ox O2 Delivery O2 Flow Rate FiO2 11/06/16 04:00 97.5 83 17 133/85 97 11/06/16 00:00 99.0 91 17 124/71 96 11/05/16 20:00 105 11/05/16 20:00 100.2 107 17 132/79 95 11/05/16 18:56 17 11/05/16 16:00 97.4 93 18 131/81 91 11/05/16 12:00 98.6 87 17 131/78 95 11/05/16 08:00 100.3 107 17 136/77 93 I/O 11/05/16 11/05/16 11/05/16 11/06/16 11/06/16 11/06/16 07:00 15:00 23:00 07:00 15:00 23:00 Intake Total 1120 ml 240 ml 240 ml 240 ml Output Total 600 ml 800 ml 300 ml 1600 ml Balance 520 ml -560 ml -60 ml -1360 ml Intake Oral 240 ml 240 ml 240 ml 240 ml IV Total 880 ml Output Urine Total 600 ml 800 ml 300 ml 1600 ml # Bowel Movements 1 1 Result Diagram: 11/05/16 0652 11/05/16 0652 Imaging Last 24 hours Impressions Lower Extremity Ultrasound 11/03/161918 Signed Impressions: Service Date/Time: Thursday, November 03, 2016 19:59 - CONCLUSION: 1. No evidence of deep venous thrombosis. 2. Lower extremity edema. Willy Goodrich MD Chest X-Ray 11/03/161918 Signed Impressions: Service Date/Time: Thursday, November 03, 2016 19:52 - CONCLUSION: No acute disease. There is no evidence of pneumonia. Willy Goodrich MD Objective Remarks LUE: incisions clean and dry. healed. ROM 10-120deg. full sensation to median/ ulnar nerve. full radial nerve function LLE: 3+ swelling of leg. healed skin graft. pain with motion of ankle. NVI. patella palpated and sitting laterally on knee RLE: incisions healed. NVI distally. no pain with motion. Assessment & Plan Assessment and Plan 1) Healed left elbow fx/dislocation 2) Healed right tibial plateau fx 3) Healed left ankle fxs with skin grafting 4) subluxing left patella 5) Left Knee LCL/ACL/Med and lat meniscal injuries -WBAT all 4 extremities -aggressive ROM -will order MRI left knee today -ortho cleared for discharge -f/u with Marisol or SHIRLEY in 1 month -f/u with Dr Aditya Kay for eval of left knee in 2 weeks Diego Cochran Nov 06, 2016 07:09
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
[2016-11-06] MEDS: GABAPENTIN 400 MG CAP PO SCH ×3 (08:30→17:12)
[2016-11-06] MEDS: METOPROLOL TARTRATE 100 MG TAB PO SCH ×2 (08:30→21:31)
[2016-11-06] MEDS: DOCUSATE SODIUM 50 MG/SENNA 8.6 MG TAB PO SCH ×3 (08:30→21:33)
[2016-11-06] MEDS: CALCIUM/VITAMIN D 250 MG/125 U TAB PO SCH (08:30)
[2016-11-06] MEDS: DOCUSATE CALCIUM 240 MG CAP PO SCH (08:31)
[2016-11-06] MEDS: SODIUM CHLORIDE 0.9% FLUSH 10 ML FLUSH IV FLUSH SCH ×2 (08:34→21:00)
--- NOTE | 2016-11-06 14:03 | HHI.IDPN ---
Subjective Subjective Remarks still febrile in the last 24 hrs, though trending down Seen by CRS Dr Burkett , plan for delayed fistula repair in 8-12 weeks no new co feels better Antibiotics zosyn Allergies: Coded Allergies: No Known Allergies (Unverified , 11/03/16) Objective . Vital Signs Date Time Temp Pulse Resp B/P Pulse Ox O2 Delivery O2 Flow Rate FiO2 11/06/16 12:00 98.2 72 14 125/87 98 11/06/16 08:01 83 11/06/16 08:00 98.1 80 16 133/82 96 11/06/16 04:00 97.5 83 17 133/85 97 11/06/16 00:00 99.0 91 17 124/71 96 11/05/16 20:00 105 11/05/16 20:00 100.2 107 17 132/79 95 11/05/16 18:56 17 11/05/16 16:00 97.4 93 18 131/81 91 11/05/16 11/05/16 11/06/16 15:00 23:00 07:00 Intake Total 240 ml 240 ml 240 ml Output Total 800 ml 300 ml 1600 ml Balance -560 ml -60 ml -1360 ml Intake Oral 240 ml 240 ml 240 ml Output Urine Total 800 ml 300 ml 1600 ml # Bowel Movements 1 . Laboratory Tests Test 11/05/16 06:52 White Blood Count 9.3 TH/MM3 Red Blood Count 4.35 MIL/MM3 Hemoglobin 12.2 GM/DL Hematocrit 36.6 % Mean Corpuscular Volume 84.1 FL Mean Corpuscular Hemoglobin 28.0 PG Mean Corpuscular Hemoglobin 33.4 % Concent Red Cell Distribution Width 14.4 % Platelet Count 161 TH/MM3 Mean Platelet Volume 7.7 FL Laboratory Tests Test 11/05/16 06:52 Sodium Level 136 MEQ/L Potassium Level 4.0 MEQ/L Chloride Level 101 MEQ/L Carbon Dioxide Level 26.0 MEQ/L Anion Gap 9 MEQ/L Blood Urea Nitrogen 9 MG/DL Creatinine 0.95 MG/DL Estimat Glomerular Filtration 84 ML/MIN Rate Random Glucose 112 MG/DL Calcium Level 8.8 MG/DL Magnesium Level 1.9 MG/DL Microbiology Date/Time Procedure Status Source Growth 11/03/16 19:25 Aerobic Blood Culture - Preliminary Resulted Blood Peripheral NO GROWTH IN 3 DAYS 11/03/16 19:25 Anaerobic Blood Culture - Preliminary Resulted Blood Peripheral NO GROWTH IN 3 DAYS 11/03/16 19:30 Aerobic Blood Culture - Preliminary Resulted Blood Peripheral NO GROWTH IN 3 DAYS 11/03/16 19:30 Anaerobic Blood Culture - Preliminary Resulted Blood Peripheral NO GROWTH IN 3 DAYS 11/03/16 19:35 Urine Culture - Final Complete Urine Catheterized Urine NO GROWTH IN 48 HOURS. Imaging Last Impressions Knee MRI 11/05/16 Signed Impressions: Service Date/Time: Saturday, November 05, 2016 10:41 - CONCLUSION: Markedly abnormal knee as described above. Correlation with clinical exam is suggested. Knee does appear to be unstable by MRI. Homero Villagran MD FACR Renal Ultrasound 11/04/16 Signed Impressions: Service Date/Time: October 08:14 - CONCLUSION: No obstruction. 2 small simple cysts involving the right kidney. Josiah Bernal Jr., MD Knee X-Ray 11/04/16 Signed Impressions: Service Date/Time: October 10:57 - CONCLUSION: 1. Widening of the medial joint compartment suggesting injury of the medial collateral ligament. 2. Tricompartmental arthritic changes. 3. Bone fragments adjacent to the lateral aspect of the knee no definite donor site is seen. Kenan Villagran MD Elbow X-Ray 11/04/16 Signed Impressions: Service Date/Time: October 11:03 - CONCLUSION: 1. The patient has tracks within the fibula from a previous external fixator. There are degenerative changes within the elbow. No new fractures identified. Kenan Villagran MD Ankle X-Ray 11/04/16 Signed Impressions: Service Date/Time: October 10:53 - CONCLUSION: 1. The patient' s ankle fracture appears well aligned and the hardware is intact. 2. There is a large bone fragment in the foot which appears to arise from the calcaneus. The foot was not imaged in detail. 3. Extensive soft tissue swelling. Kenan Villagran MD Abdomen/Pelvis CT 11/04/16 Signed Impressions: Service Date/Time: October 23:48 - CONCLUSION: Chronic sigmoid colon diverticular disease with contained perforations, colovesical fistula and secondary cystitis. Vinicius Hillman MD Lower Extremity Ultrasound 11/03/161918 Signed Impressions: Service Date/Time: Thursday, November 03, 2016 19:59 - CONCLUSION: 1. No evidence of deep venous thrombosis. 2. Lower extremity edema. Willy Goodrich MD Chest X-Ray 11/03/161918 Signed Impressions: Service Date/Time: Thursday, November 03, 2016 19:52 - CONCLUSION: No acute disease. There is no evidence of pneumonia. Willy Goodrich MD Physical Exam CONSTITUTIONAL/GENERAL: This is an adequately nourished patient, in no apparent distress. TUBES/LINES/DRAINS: SKIN: No jaundice, rashes, or lesions. Skin temperature appropriate. Not diaphoretic. EYES: No scleral icterus. No injection or drainage. Fundi not examined. ENT: Hearing grossly normal. Oral mucosa without visible erythema, exudates, masses, or lesions. CARDIOVASCULAR: Regular rate and rhythm without murmurs, gallops, or rubs. No JVD. Peripheral pulses symmetric. RESPIRATORY/CHEST: Symmetric, unlabored respirations. Clear to auscultation. Breath sounds equal bilaterally. No wheezes, rales, or rhonchi. GASTROINTESTINAL: Abdomen soft, non-tender, nondistended. No hepato-splenomegaly , or palpable masses. No guarding. Bowel sounds present. GENITOURINARY: Without palpable bladder distension. Delacruz catheter in place with yellow clear urine MUSCULOSKELETAL: Extremities without clubbing, cyanosis, or edema. No joint tenderness or effusion noted. No calf tenderness. No mottling or clubbing. Multiple incisions on b/l LE - healed Few scabs still present on L foot incision, no erythema, no edema, no open wounds LYMPHATICS: No palpable cervical or supraclavicular adenopathy. NEUROLOGICAL: Awake and alert. Motor and sensory grossly within normal limits. Follows commands. Clear speech. Moves all extremities. PSYCHIATRIC: No obvious anxiety/depression. no apparent hallucinations or other psychotic thought process. Assessment & Plan Remarks Acute o chronic diverituclitis with contained perforation and colovisucular fistula - Colorecral sx ff UTI, urosepsis, 2/2 fistula - clx negative - final - pneumouria prior to presentation Multiple ortho injuries, still on a lot of pain medx Ongoing fever 2/2 diverticulitis and UTI, sepsis Severe leukocytosuis - improved - dc zosyn - start Unasyn, plan to transition to augmentin closer to dc - resume full diet - anticipate d/c in 1-2 days if remains afebrile, cont to improve and no new issues Discussed Condition With pt Jessi Gong MD Nov 06, 2016 14:03
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
[2016-11-06] MEDS: AMPICILLIN-SULBACTAM INJ 3 GM in SODIUM CHLORIDE 0.9% INJ 100 ML IV SCH (17:12)
[2016-11-07] VITALS: BP 156/81; PULSE 83; RESP 18; TEMP 98; O2SAT 95
[2016-11-07] MEDS: AMPICILLIN-SULBACTAM INJ 3 GM in SODIUM CHLORIDE 0.9% INJ 100 ML IV SCH ×4 (01:09→17:27)
[2016-11-07] MEDS: HEPARIN SODIUM - SQ 10,000 UNITS/ML VIAL SQ SCH ×2 (06:32→14:15)
[2016-11-07] MEDS: SODIUM CHLOR 0.9% 1000 ML INJ 1,000 ML IV SCH ×2 (06:32→12:15)
[2016-11-07 08:00] VITALS: BP 141/96; PULSE 85; RESP 18; TEMP 98; O2SAT 95
[2016-11-07] MEDS: DOCUSATE CALCIUM 240 MG CAP PO SCH (08:07)
[2016-11-07] MEDS: GABAPENTIN 400 MG CAP PO SCH ×3 (08:07→17:26)
[2016-11-07] MEDS: CALCIUM/VITAMIN D 250 MG/125 U TAB PO SCH (08:07)
[2016-11-07] MEDS: METOPROLOL TARTRATE 100 MG TAB PO SCH (08:07)
[2016-11-07] MEDS: fentaNYL 25 MCG/HR PATCH T-DERMAL SCH (08:08)
[2016-11-07] MEDS: SODIUM CHLORIDE 0.9% FLUSH 10 ML FLUSH IV FLUSH SCH (08:08)
[2016-11-07] MEDS ORDERED: REMOVE OLD DURAGESIC (FENTANYL) PATCH T-DERMAL SCH (09:00)
--- NOTE | 2016-11-07 09:07 | HHI.PR ---
Subjective Remarks Diverticulitis with colovesical fistula some discomfort Objective Vital Signs Date Time Temp Pulse Resp B/P Pulse Ox O2 Delivery O2 Flow Rate FiO2 11/07/16 08:00 98.0 85 18 141/96 95 11/07/16 00:00 98.0 83 18 156/81 95 11/06/16 21:32 82 11/06/16 20:00 98.5 90 18 143/91 98 11/06/16 16:00 98.2 75 16 144/95 95 11/06/16 12:00 98.2 72 14 125/87 98 I/O 11/06/16 11/06/16 11/06/16 11/07/16 11/07/16 11/07/16 07:00 15:00 23:00 07:00 15:00 23:00 Intake Total 240 ml 275 ml 3852 ml 1277 ml Output Total 1600 ml 3000 ml 850 ml 950 ml 1150 ml Balance -1360 ml -2725 ml 3002 ml 327 ml -1150 ml Intake Oral 240 ml 275 ml 720 ml 240 ml IV Total 3132 ml 1037 ml Output Urine Total 1600 ml 3000 ml 850 ml 950 ml 1150 ml # Bowel Movements 1 0 0 Result Diagram: 11/05/16 0652 11/05/16 0652 Procedures No procedures. Objective Remarks Abdomen soft, nondistended, mildly tender LLQ/suprapubic Assessment and Plan Assessment and Plan OK to d/c home when ok with Infectious Disease Followup with Dr. Quinones in 2 weeks (I will be out of town) Tania Burkett MD Nov 07, 2016 09:07
[2016-11-07 12:00] VITALS: BP 143/89; PULSE 88; RESP 16; TEMP 98; O2SAT 96
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
[2016-11-07 16:00] VITALS: BP 125/91; PULSE 98; RESP 20; TEMP 98; O2SAT 95
--- NOTE | 2016-11-07 16:31 | HHI.PR ---
Addendum to Inpatient Note Additional Information Afebrile x [address] Burkett He is ok to be discharged home with 10 more days of abx : amoxuicillin/ clavunate 500 mg PO q [address] Burkett in 2 wks Jessi Gong MD Nov 07, 2016 16:31
[2016-11-07] MEDS ORDERED: AUGM500T7 PO ×3 (16:33→16:45)
[2016-11-07] MEDS ORDERED: PERC10TA27 PO (16:44)
[2016-11-07] MEDS ORDERED: FENT25DI T-DERMAL (16:44)
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
[2016-11-07] MEDS: oxyCODONE/ACETAMINOPHEN 10 MG/325 MG TAB PO PRN (17:26)
[2016-11-07 20:00] VITALS: BP 149/94; PULSE 85; RESP 20; TEMP 96.2; O2SAT 98
== END 2016-11-07 22:53 | disposition home or self-care (01) | DRG 872 ==
LOC: NEPE 18:56 → NEDA 21:35 → N07A 11-04 00:51
PROVIDERS: ADMIT Internal Medicine; ATTEND Internal Medicine
DX: A41.9 Sepsis, unspecified organism (principal); E87.2 Acidosis; N17.9 Acute kidney failure, unspecified; N32.1 Vesicointestinal fistula; G62.9 Polyneuropathy, unspecified; K57.20 Diverticulitis of large intestine with perforation and abscess without bleeding; N30.00 Acute cystitis without hematuria; I10 Essential (primary) hypertension; R65.20 Severe sepsis without septic shock; K57.90 Diverticulosis of intestine, part unspecified, without perforation or abscess without bleeding; R60.0 Localized edema
CPT/HCPCS: 51702; 71010; 73070; 73560; 73610; 73721; 74177; 76775; 80048; 80053; 81001; 82948; 83605; 83735; 85025; 85027; 87040; 87086; 93971; 96361; 96374; J0295; J0696; J0744; J1644; J2543; J7030; Q9963; Q9967

== ENCOUNTER → 2017-02-11 | Outpatient (CLI) | payer OTHER ==
[~2017-02-11] MED LIST changes: -ALDA50TA2 PO; +AMLO10TA2 PO; +AUGM500T7 PO; -CALC200S NASAL; -CELE200C PO; -ERGO1CAP10 PO; +FENT25DI T-DERMAL; -FENT75DI T-DERMAL; -FERR1TAB36 PO; +GABA800T PO; +KRIL1CAP21 PO; -LACTCAP8 PO; -LORA1TAB12 PO; -LYRI150C PO; -MISC-163; +PERC7.5T13 PO; +SACC1CAP3 PO; -TEST1GEL5 TOPICAL; -TEST200I13 IM; -TRANMIS2; -VITA10007 PO; -WHEEMIS3
[2017-02-11 11:12] LABS: APTT (PATIENT) 28.1 SEC (24.3-30.1); PROTHROMBIN TIME - PATIENT 11.1 SEC (9.8-11.6)
[2017-02-11 11:14] LABS: AUTOMATED NEUTROPHIL # 6.7 TH/MM3 (1.8-7.7); BASOPHIL # 0.1 TH/MM3 (0-0.2); BASOPHIL % 0.7 % (0.0-2.0); EOSINOPHIL # 0.4 TH/MM3 (0-0.4); HEMATOCRIT 43.2 % (39.0-51.0); LYMPH % 20.1 % (9.0-44.0); MEAN CELL VOLUME 87.3 FL (80.0-100.0); MEAN CORPUSCULAR HEMOGLOBIN 30.3 PG (27.0-34.0); MEAN CORPUSCULAR HGB CONC 34.7 % (32.0-36.0); MONO % 7.3 % (0.0-8.0); NEUT % 67.9 % (16.0-70.0); PLATELET COUNT 264 TH/MM3 (150-450); RED BLOOD COUNT 4.95 MIL/MM3 (4.50-5.90); RED CELL DISTRIBUTION WIDTH 12.8 % (11.6-17.2); WHITE BLOOD COUNT 9.8 TH/MM3 (4.0-11.0)
[2017-02-11 11:31] LABS: HEMO FLAGS AUTO DIFF
[2017-02-11 11:32] LABS: ANION GAP 9 MEQ/L (5-15); BICARBONATE 27.9 MEQ/L (21.0-32.0); BLOOD UREA NITROGEN 16 MG/DL (7-18); CHLORIDE 101 MEQ/L (98-107); GLOMERULAR FILTRATION RATE 90 ML/MIN (>89); GLUCOSE,FASTING 133 MG/DL (74-99); POTASSIUM 3.7 MEQ/L (3.5-5.1); SODIUM (NA) 138 MEQ/L (136-145)
[2017-02-11 11:33] LABS: ALT (GPT) 48 U/L (12-78)
[2017-02-11 11:37] LABS: ALKALINE PHOSPHATASE 135 U/L (45-117); AST (GOT) 31 U/L (15-37); TOTAL BILIRUBIN ADULT 0.5 MG/DL (0.2-1.0)
[2017-02-11 12:33] LABS: SCAN/DIFF AUTO DIFF CONFIRMED
[2017-02-11 12:45] LABS: BACTERIA, URINE OCC /hpf; BLOOD, URINE SMALL (NEG); COMMENT (UR) CULTURE INDICATED; CULTURE IF INDICATED CULTURE INDICATED; GLUCOSE,URINE NEG (NEG); KETONE, URINE NEG (NEG); MUCUS URINE FEW /lpf (OCC); NITRITE,URINE NEG (NEG); URINE COLOR YELLOW (YELLW/STRAW)
--- NOTE | 2017-02-11 13:37 | EKG ---
Date Performed: 02/11/2017 Time Performed: 10:39:56 PTAGE: 52 years EKG: Sinus rhythm NONSPECIFIC T-WAVE ABNORMALITY BORDERLINE ECG Compared to prior electrocardiogram, Nonspecific T wav e changes are less marked and rate has decreased PREVIOUS TRACING : 04/09/2016 09.51 DOCTOR: Jw Littlejohn Interpretating Date/Time 02/11/2017 13:36:39
== END ==
LOC: CPRE 10:09
PROVIDERS: ATTEND Colon & Rectal Surgery
DX: Z01.810 Encounter for preprocedural cardiovascular examination (principal); Z01.812 Encounter for preprocedural laboratory examination; K57.32 Diverticulitis of large intestine without perforation or abscess without bleeding; R94.31 Abnormal electrocardiogram [ECG] [EKG]; R82.90 Unspecified abnormal findings in urine
CPT/HCPCS: 36415; 80053; 81001; 85025; 85610; 85730; 87086; 93005

== ENCOUNTER 2017-02-18 06:32 | Inpatient (IN) | payer OTHER ==
[2017-02-18] VITALS (9 sets, daily range): BP systolic 143–148; BP diastolic 78–90; PULSE 94–102; RESP 18; TEMP 98.3; O2SAT 96–98
[~2017-02-18] VITALS: Ht 180.3 cm; Wt 114.4 kg
[~2017-02-18 06:32] MED LIST changes: -AUGM500T7 PO; -DOCU250C PO; -PERC10TA27 PO
[2017-02-18] MEDS ORDERED: POVIDONE IODINE 5% (ANTISEPSIS KIT) 4 APPLICATIONS EACH NARE PRN (07:15)
[2017-02-18] MEDS ORDERED: LACTATED RINGER'S 1000 ML IV PRN (07:15)
[2017-02-18] MEDS ORDERED: CHLORHEXIDINE GLUCONATE 2 % 1 PACK (2 CLOTHS) TOPICAL PRN (07:15)
[2017-02-18] MEDS ORDERED: SODIUM CHLORID 0.9% 500 ML IV PRN (07:15)
[2017-02-18] MEDS ORDERED: METOPROLOL TARTRATE 25 MG TAB PO PRN (07:15)
[2017-02-18] MEDS ORDERED: INSULIN HUMAN REGULAR 1,000 UNITS/10 ML VIAL SQ PRN (07:15)
[2017-02-18] MEDS ORDERED: METRONIDAZOLE 500 MG/100 ML ISONTONIC SOLN IV SCH (07:15)
[2017-02-18] MEDS ORDERED: ACETAMINOPHEN 1000 MG/100 ML 100 ML IV ONE (08:04)
[2017-02-18] MEDS ORDERED: ARTIFICIAL TEARS OPTH OINT 3.5 APPLIC/3.5 GM TUBO ONE (08:05)
[2017-02-18] MEDS ORDERED: SUGAMMADEX SODIUM 200 MG/2 ML VIAL IV PUSH ONE ×2 (08:05)
[2017-02-18] MEDS ORDERED: HYDROmorphone HCL PF 2 MG/ML VIAL ONE (08:05)
--- NOTE | 2017-02-18 08:05 | PD.HP.UP ---
H&P Update Note The Pre-Admit History and Physical Examination regarding the above named patient was reviewed (including, but not limited to, vital signs, heart, lungs, co-morbid conditions), and upon re-examination it is noted that: the patient's condition has not significantly changed since the last examination. Tania Burkett MD Feb 18, 2017 08:05
[2017-02-18] MEDS ORDERED: FAMOTIDINE 20 MG/2 ML VIAL ONE (08:15)
[2017-02-18] MEDS: ceFAZolin 2 GM PREMIX 50 ML IV SCH ×2 (08:55→10:48)
--- NOTE | 2017-02-18 09:46 | PD.OP ---
Operative Report Date of Surgery: Feb 18, 2017 Preoperative Diagnosis: Colovesical fistula due to diverticulitis Postoperative Diagnosis: Same Procedure: Cystoscopy with left ureteral catheter placement; attempted right ureteral catheter placement Anesthesia: GETA Surgeon: Keanu Rahman Hydrogen Plant Operator(s): None Resident Surgeon: None Operation and Findings: 52 year-old male with history of diverticulitis who developed a colovesical fistula. Patient elected to undergo robotic-assisted colectomy with repair of colovesical fistula by Dr. Burkett. Request for made for bilateral ureteral catheter placement. Patient was brought to the operating room and identified by myself as [place]. He is placed in dorsal lithotomy position, prepped and draped in usual sterile fashion, received preprocedure antibiotics, and general endotracheal tube anesthesia was administered. Weight 2 Maltese cystoscope was inserted in the bladder frederick cystoscopy showed a large prostate with some bullous edema around the left ureteral orifice. Some trabeculations were noted throughout the bladder. The left ureteral orifice was cannulated with 5 Maltese open-ended catheter initially it would not advance. A 0.35 sensor wire was then passed through the open-ended catheter and the catheter was able to slide up the left ureter without difficulty. The right ureteral orifice was identified and attempt was made to pass a 5 Maltese open catheter. This was unsuccessful after a 0.35 sensor wire and then an angled Glidewire was then utilized. The right side was then aborted. The 16 Maltese Delacruz catheter was inserted and the catheter was attached to the Delacruz catheter he tolerated the procedure well. Keanu Rahman DO Feb 18, 2017 09:46
[2017-02-18] MEDS ORDERED: SODIUM CHLORIDE 0.9% 20 ML VIAL IV ONE (12:00)
[2017-02-18] MEDS ORDERED: ONDANSETRON HCL 4 MG/2 ML VIAL IV PUSH ONE (12:00)
[2017-02-18] MEDS ORDERED: LIDOCAINE HCL 1% PF 5 ML AMPULE OTHER ONE (12:00)
[2017-02-18] MEDS ORDERED: NORMOSOL R INJ 1,000 ML IV ONE (12:00)
[2017-02-18] MEDS ORDERED: PHENYLEPH/NS 1000 MCG/10 ML SYR IV ONE (12:00)
[2017-02-18] MEDS ORDERED: ePHEDrine/NS 25 MG/5 ML SYR IV ONE (12:00)
[2017-02-18] MEDS ORDERED: MIDAZOLAM HCL 2 MG/2 ML VIAL IV ONE (12:00)
[2017-02-18] MEDS ORDERED: PROPOFOL 200 MG/20 ML AMP IV ONE (12:00)
[2017-02-18] MEDS ORDERED: ROCURONIUM INJ 50 MG/5 ML SYRINGE IV PUSH ONE (12:00)
[2017-02-18] MEDS ORDERED: MORPHINE SULFATE 4 MG/ML INJ IV ONE (12:00)
[2017-02-18] MEDS ORDERED: VECURONIUM BROMIDE 20 MG VIAL IV ONE (12:00)
[2017-02-18] MEDS ORDERED: DEXAMETHASONE SOD PHOS 4 MG/ML VIAL IV ONE (12:00)
[2017-02-18] MEDS ORDERED: ceFAZolin INJ 1,000 MG VIAL ONE (13:09)
[2017-02-18] MEDS ORDERED: diphenhydrAMINE HCL 50 MG/ML VIAL IV PRN (13:15)
[2017-02-18] MEDS ORDERED: POTASSIUM CHLOR 20 MEQ PREMIX 100 ML IV PRN (13:15)
[2017-02-18] MEDS ORDERED: ENALAPRILAT 1.25 MG/ML VIAL IV PRN (13:15)
[2017-02-18] MEDS ORDERED: SODIUM CHLORIDE 0.9% FLUSH 5 ML FLUSH IVF PRN (13:15)
[2017-02-18] MEDS ORDERED: ACETAMINOPHEN 325 MG TAB PO PRN (13:15)
[2017-02-18] MEDS ORDERED: BENZOCAINE 6 MG/MENTHOL 10 MG LOZENGE BUCCAL PRN (13:15)
[2017-02-18] MEDS ORDERED: ACETAMINOPHEN/HYDROcodone 325 MG/5 MG TAB PO PRN ×2 (13:15)
[2017-02-18] MEDS ORDERED: POTASSIUM CHLOR 40 MEQ PREMIX 100 ML IV PRN (13:15)
[2017-02-18] MEDS ORDERED: ENALAPRILAT 2.5 MG/2 ML VIAL IV PRN (13:15)
[2017-02-18] MEDS ORDERED: NALOXONE HCL 0.4 MG/ML AMP IV PRN (13:15)
[2017-02-18] MEDS ORDERED: Post-op Orders (for Pharmacy) MISC XX ONE (13:15)
[2017-02-18] MEDS ORDERED: ONDANSETRON HCL 4 MG/2 ML VIAL IV PRN (13:15)
[2017-02-18] MEDS ORDERED: D5-LR + KCL 20 MEQ INJ 1,000 ML ONE (13:24)
[2017-02-18] MEDS ORDERED: DO NOT ADM ANY ANTICOAGULANT DRUGS PRN (13:42)
[2017-02-18] MEDS: D5-NS + KCL 20 MEQ INJ 1,000 ML IV SCH ×2 (13:46→23:17)
[2017-02-18] MEDS: MORPHINE SULFATE 30 MG/30 ML PCA IV SCH ×2 (13:46→23:02)
[2017-02-18] MEDS ORDERED: *morphine SULFATE 8 MG/ML PERIprocedure ONLY ONE ×3 (13:55→14:13)
[2017-02-18] MEDS: PCA - TOTAL MG MORPHINE DELIVERED PER SHIFT SCH ×2 (14:00→21:04)
[2017-02-18] MEDS: KETOROLAC TROMETHAMINE 30 MG/ML (IVP) VIAL IVP SCH ×2 (14:05→20:59)
--- NOTE | 2017-02-18 14:07 | MP ---
cc: ELIGIO FLORES M.D., JOHN G. M.D. DATE OF SURGERY: 02/18/2017 PREOPERATIVE DIAGNOSIS 1. Diverticulitis. 2. Colovesical fistula. POSTOPERATIVE DIAGNOSIS 1. Diverticulitis. 2. Colovesical fistula. PROCEDURE 1. Robotic sigmoid resection. 2. Repair of bladder. SURGEON Kwadwo. HYDROCHLORIC AREA SUPERVISOR [facility]. ANESTHESIA General per ET tube. ESTIMATED BLOOD LOSS 100 cc. OPERATIVE INDICATIONS The patient is a 52-year-old male who had a severe diverticulitis with development of colovesical fistula earlier this year. OPERATIVE FINDINGS The patient had a large phlegmon in the mid sigmoid colon which was adherent to the dome of the bladder. The colon proximal and distal to this was relatively soft and pliable and appeared normal. There were no visible abnormalities noted within the part of the liver that I could visualize, and no other abnormalities noted within the peritoneal cavity. OPERATIVE COURSE The patient was brought to the operating room and placed in the supine position. After induction of general anesthesia the patient was placed in Jose Martin stirrups. Due to his previous surgeries and fairly unstable knee, his knee was very carefully padded and immobilized completely within the stirrup. The skin of the anterior abdominal wall, as well as the perineal area, was prepped and draped in the usual sterile fashion. Dr. Rahman then came in and performed cystoscopy with placement of a left ureteral stent. A right ureteral stent was attempted but he was not able to advance the stent fully and so this was removed. Please see his procedure note for details. A site was then chosen for the camera, being located just to the right and above the umbilicus. A 10-12 trocar was placed at this location under direct vision using the laparoscope. CO2 insufflation was then undertaken and a brief abdominal survey was performed, with nothing noted that would preclude the robotic approach. The right-sided ports were then placed as follows. The #1 port, which was a 10-12, was placed just inside the right anterior superior iliac spine. A 5 assist port was placed equal distance between #1 and the camera port. The patient was then hydroplaned with head down and slightly to the right and the small bowel was brought up and out of the pelvis and a good look at the area of phlegmon was visualized. The descending colon was then also visualized and I was concerned that we might have to take down the splenic flexure and so the left-sided ports were placed as follows. The #3 port was placed in line with the umbilicus, in the left anterior axillary line. The #2 port was placed in the left midclavicular line, four fingerbreadths above the umbilical line. The sigmoid colon was retracted down and to the left and the peritoneum on the right was scored. Dissection continued in this plane posterior to the vessels as far lateral as I could get, and somewhat down into the pelvis. Dissection continued but I was not able to definitively identify the ureter so we elected to proceed with the lateral portion of the dissection. It was necessary, however, to dissect the sigmoid colon free from the dome of the bladder where a fairly large opening in the bladder was noted. Eventually we were able to free the sigmoid colon from this area and retract it laterally. The lateral peritoneal attachments were dissected free using electrocautery, and dissection continued in this plane until the previous dissection plane was met. The left ureter was then identified and swept away from the specimen. The sigmoid colon was retracted again to the left and the inferior hemorrhoidal vessels were dissected free circumferentially. A white load of the [place] [facility] stapler was placed across the vessels. This was closed, held for 30 seconds, fired, and removed. Dissection then continued posterior to the descending colon mesentery and over to the lateral side, but not at this point up and around the splenic flexure. Dissection then continued posteriorly down into the pelvis down to level of the lower rectum, and then continued up and around the right and left side down to level of, but not through the peritoneal reflection. Eventually we had nice mobility of the descending colon, sigmoid colon and most of the rectum. A sponge stick was then placed in the rectum and a site was chosen for division of the rectum, on the proximal rectum just distal to the colorectal junction. The mesentery at this level was divided using the Harmonic scalpel and a blue load of the [place] [facility] stapler was placed across the bowel at this level. This was closed, held for 30 seconds, fired and removed. The staple lines were noted to be complete. The patient did have some very mild diffuse oozing from his tissues but it was easily controlled with electrocautery. The pelvis was examined and some small areas of bleeding were controlled using electrocautery. Additional dissection was continued up to the level of the splenic flexure but not around it, as at this point I felt that I had adequate length to come down nicely to the rectal stump. The edges of the bladder fistula were then cleared up with electrocautery and the bladder defect was re-approximated in an interrupted fashion using 3-0 chromic suture. The robot was then undocked. An 8-10 cm transverse incision was made just above the pubic symphysis and, using electrocautery, dissection was carried down to the fascia of the anterior abdominal wall. The anterior fascia was then split the length of the skin incision and the medial fibers of the rectus abdominis muscles were split. The posterior fascia/peritoneum was then divided as well. A wound protector was then placed and the proximal stapled end of the bowel was grasped and pulled up and out through the incision. A site was chosen for division of bowel, proximal to the area of phlegmon where the bowel was soft and healthy. The mesentery at this level was serially divided and ligated using 0 Vicryl ties. The bowel was cleared circumferentially. The patient was noted to have diverticula all the way up the descending colon and so it was difficult to find a spot that was free of diverticula, but we got as clear of diverticula as we could. A pursestring stapling device was placed across the bowel at this level. The distal bowel was occluded with a Shilpa clamp. The bowel was divided sharply and sent for pathology. The anvil from the 33 EEA stapler was brought onto the field, placed into the cut end of the bowel and the previously placed pursestring suture was secured. It was necessary to use a suture to bring the diverticula up and around the shaft of the stapler to avoid diverticula across the staple line. This was performed with 3-0 Vicryl. The 33 EEA stapler was placed through the anus and advanced to the rectal stump without difficulty. A small amount of fibrofatty tissue was cleared posteriorly. The spike was advanced just posterior to the staple line. The anvil was into the spike and, being careful that the bowel was not twisted, the stapler was then closed, held for 30 seconds, fired and removed. Both anastomotic rings appeared to be complete and what we could see of the staple line looked intact and healthy. A small amount of warm normal saline was placed in the pelvis and air was insufflated into the rectum until gentle tension was noted in the anastomosis, with no sign of any leakage noted. The anastomosis lay in a nice orientation without tension. The posterior fascia at the suprapubic incision was closed in a running fashion using #1 PDS, and the anterior fascia was closed in a running fashion using #1 PDS. A moist Ray-Yenifer was placed in the incision and a Tegaderm was placed over the incision. CO2 insufflation was then resumed and the peritoneal cavity was examined. There was no sign of any significant bleeding. Some Leander, however, was dusted into the pelvis to help prevent any further oozing. The 10-12 trocar sites were then closed using the CrossBow staple device and 0 Vicryl suture. These were placed but not tied until the CO2 was desufflated. The camera was removed. The CO2 was desufflated to the extent possible and all further trocars were removed. The fascial sutures were then secured. The wounds were copiously irrigated with warm normal saline. The suprapubic incision was closed in a running subcuticular fashion using 3-0 Vicryl and the trocar sites were closed in an interrupted subcuticular fashion using 3-0 Vicryl. Steri-Strips and sterile dressings were then applied. All sponge, needle and instrument counts were correct, and the patient was returned to the post-anesthesia care unit in stable condition. MD JOANNA Hoover/ZINA /1:17 PM /1:39 PM ALEXANDRA
[2017-02-18] MEDS ORDERED: *HYDROmorphone PF 1 MG VIAL PERIprocedural Use ONLY ONE (14:25)
[2017-02-18 15:15] LABS: AUTOMATED NEUTROPHIL # 11.5 TH/MM3 (1.8-7.7); BASOPHIL % 0.2 % (0.0-2.0); EOSINOPHIL % 0.1 % (0.0-4.0); HEMATOCRIT 41.7 % (39.0-51.0); HEMO FLAGS DIFF FINAL; LYMPH % 4.9 % (9.0-44.0); LYMPHOCYTE # 0.6 TH/MM3 (1.0-4.8); MEAN CELL VOLUME 87.4 FL (80.0-100.0); MEAN CORPUSCULAR HEMOGLOBIN 29.8 PG (27.0-34.0); MEAN CORPUSCULAR HGB CONC 34.1 % (32.0-36.0); MONO % 3.2 % (0.0-8.0); NEUT % 91.6 % (16.0-70.0); PLATELET COUNT 198 TH/MM3 (150-450); RED BLOOD COUNT 4.77 MIL/MM3 (4.50-5.90); RED CELL DISTRIBUTION WIDTH 12.8 % (11.6-17.2); WHITE BLOOD COUNT 12.6 TH/MM3 (4.0-11.0)
[2017-02-18 15:28] LABS: POTASSIUM 3.2 MEQ/L (3.5-5.1)
[2017-02-18] MEDS: DEXT 5%-NACL 0.9% 1000 ML INJ 1,000 ML IV SCH ×2 (15:30→23:30)
[2017-02-18] MEDS: metroNIDAZOLE 500 MG INJ 100 ML IV SCH (16:34)
[2017-02-18] MEDS: fentaNYL 25 MCG/HR PATCH T-DERMAL SCH (20:58)
[2017-02-18] MEDS: SODIUM CHLORIDE 0.9% FLUSH 5 ML FLUSH IVF SCH (21:00)
[2017-02-19] VITALS (21 sets, daily range): BP systolic 130–154; BP diastolic 70–88; PULSE 88–118; RESP 16–18; TEMP 98–98.8; O2SAT 93–97
[2017-02-19] MEDS: metroNIDAZOLE 500 MG INJ 100 ML IV SCH ×2 (01:20→08:33)
[2017-02-19] MEDS: KETOROLAC TROMETHAMINE 30 MG/ML (IVP) VIAL IVP SCH ×4 (01:20→19:49)
[2017-02-19] MEDS: D5-NS + KCL 20 MEQ INJ 1,000 ML IV SCH ×4 (05:28→19:47)
[2017-02-19] MEDS: PCA - TOTAL MG MORPHINE DELIVERED PER SHIFT SCH (06:00)
[2017-02-19] MEDS: DEXT 5%-NACL 0.9% 1000 ML INJ 1,000 ML IV SCH (06:15)
[2017-02-19 06:31] LABS: BASOPHIL % 0.1 % (0.0-2.0); EOSINOPHIL % 0.1 % (0.0-4.0); HEMATOCRIT 38.1 % (39.0-51.0); HEMO FLAGS DIFF FINAL; LYMPH % 7.9 % (9.0-44.0); MEAN CORPUSCULAR HEMOGLOBIN 30.3 PG (27.0-34.0); MEAN CORPUSCULAR HGB CONC 34.8 % (32.0-36.0); MONO % 9.8 % (0.0-8.0); NEUT % 82.1 % (16.0-70.0); PLATELET COUNT 209 TH/MM3 (150-450); RED BLOOD COUNT 4.38 MIL/MM3 (4.50-5.90); RED CELL DISTRIBUTION WIDTH 12.9 % (11.6-17.2); WHITE BLOOD COUNT 12.1 TH/MM3 (4.0-11.0)
[2017-02-19 07:49] LABS: BICARBONATE 26.1 MEQ/L (21.0-32.0); POTASSIUM 3.5 MEQ/L (3.5-5.1)
[2017-02-19] MEDS: PANTOPRAZOLE SODIUM 40 MG VIAL IVP SCH (08:33)
[2017-02-19] MEDS: SODIUM CHLORIDE 0.9% FLUSH 5 ML FLUSH IVF SCH ×2 (08:34→19:49)
[2017-02-19] MEDS: MORPHINE SULFATE 30 MG/30 ML PCA IV SCH (09:03)
[2017-02-19] MEDS ORDERED: NALOXONE HCL 0.4 MG/ML AMP IV PRN (10:30)
[2017-02-19] MEDS: HYDROmorphone HCL PCA 6 MG/30 ML IV SCH ×2 (11:39→19:25)
[2017-02-19] MEDS: HEPARIN SODIUM - SQ 10,000 UNITS/ML VIAL SQ SCH (13:43)
[2017-02-19] MEDS: PCA - TOTAL MG DILAUDID DELIVERED PER SHIFT SCH ×2 (13:47→21:14)
[2017-02-20] VITALS: BP 141/90; PULSE 101; RESP 17; TEMP 98; O2SAT 92
[2017-02-20] MEDS: KETOROLAC TROMETHAMINE 30 MG/ML (IVP) VIAL IVP SCH ×4 (01:45→19:39)
[2017-02-20] MEDS: HEPARIN SODIUM - SQ 10,000 UNITS/ML VIAL SQ SCH ×2 (01:45→12:51)
[2017-02-20 04:00] VITALS: BP 155/95; PULSE 93; RESP 17; TEMP 97.9; O2SAT 94
[2017-02-20] MEDS: PCA - TOTAL MG DILAUDID DELIVERED PER SHIFT SCH ×3 (05:42→19:40)
[2017-02-20] MEDS: HYDROmorphone HCL PCA 6 MG/30 ML IV SCH ×2 (06:51→19:48)
[2017-02-20 06:58] LABS: AUTOMATED NEUTROPHIL # 5.7 TH/MM3 (1.8-7.7); BASOPHIL % 0.4 % (0.0-2.0); EOSINOPHIL # 0.3 TH/MM3 (0-0.4); EOSINOPHIL % 3.3 % (0.0-4.0); HEMATOCRIT 36.1 % (39.0-51.0); HEMO FLAGS DIFF FINAL; LYMPHOCYTE # 1.5 TH/MM3 (1.0-4.8); MEAN CELL VOLUME 87.4 FL (80.0-100.0); MEAN CORPUSCULAR HEMOGLOBIN 30.5 PG (27.0-34.0); MEAN CORPUSCULAR HGB CONC 34.9 % (32.0-36.0); MONO % 11.1 % (0.0-8.0); NEUT % 67.2 % (16.0-70.0); PLATELET COUNT 181 TH/MM3 (150-450); RED BLOOD COUNT 4.13 MIL/MM3 (4.50-5.90); RED CELL DISTRIBUTION WIDTH 13.2 % (11.6-17.2); WHITE BLOOD COUNT 8.5 TH/MM3 (4.0-11.0)
[2017-02-20 07:08] LABS: BICARBONATE 27.1 MEQ/L (21.0-32.0); POTASSIUM 3.4 MEQ/L (3.5-5.1)
[2017-02-20] MEDS: D5-NS + KCL 20 MEQ INJ 1,000 ML IV SCH ×2 (08:40→19:39)
[2017-02-20] MEDS: SODIUM CHLORIDE 0.9% FLUSH 5 ML FLUSH IVF SCH ×2 (08:40→19:39)
[2017-02-20] MEDS: PANTOPRAZOLE SODIUM 40 MG VIAL IVP SCH (08:40)
[2017-02-20 08:43] VITALS: BP 169/94; PULSE 101; RESP 20; TEMP 97.1; O2SAT 93
[2017-02-20 12:48] VITALS: BP 172/94; PULSE 93; RESP 20; TEMP 97.1; O2SAT 96
[2017-02-20] MEDS: GABAPENTIN 400 MG CAP PO SCH ×2 (13:00→17:19)
[2017-02-20 16:49] VITALS: BP 153/99; PULSE 108; RESP 20; TEMP 97.1; O2SAT 96
[2017-02-20 20:00] VITALS: BP 157/86; PULSE 101; RESP 17; TEMP 99.2; O2SAT 94
[2017-02-21] VITALS: BP 151/88; PULSE 82; RESP 17; TEMP 97.7; O2SAT 95
[2017-02-21] MEDS: KETOROLAC TROMETHAMINE 30 MG/ML (IVP) VIAL IVP SCH ×2 (01:42→10:23)
[2017-02-21] MEDS: HEPARIN SODIUM - SQ 10,000 UNITS/ML VIAL SQ SCH ×2 (01:42→14:06)
[2017-02-21 05:06] LABS: AUTOMATED NEUTROPHIL # 4.3 TH/MM3 (1.8-7.7); BASOPHIL % 0.6 % (0.0-2.0); EOSINOPHIL # 0.4 TH/MM3 (0-0.4); EOSINOPHIL % 5.9 % (0.0-4.0); HEMATOCRIT 36.8 % (39.0-51.0); HEMO FLAGS DIFF FINAL; LYMPH % 18.4 % (9.0-44.0); LYMPHOCYTE # 1.3 TH/MM3 (1.0-4.8); MEAN CELL VOLUME 86.8 FL (80.0-100.0); MEAN CORPUSCULAR HEMOGLOBIN 30.3 PG (27.0-34.0); MEAN CORPUSCULAR HGB CONC 34.9 % (32.0-36.0); NEUT % 63.1 % (16.0-70.0); PLATELET COUNT 199 TH/MM3 (150-450); RED BLOOD COUNT 4.24 MIL/MM3 (4.50-5.90); RED CELL DISTRIBUTION WIDTH 13.2 % (11.6-17.2); WHITE BLOOD COUNT 6.9 TH/MM3 (4.0-11.0)
[2017-02-21] MEDS: PCA - TOTAL MG DILAUDID DELIVERED PER SHIFT SCH ×3 (05:06→22:00)
[2017-02-21 05:29] LABS: BICARBONATE 27.9 MEQ/L (21.0-32.0); POTASSIUM 3.4 MEQ/L (3.5-5.1)
[2017-02-21 08:00] VITALS: BP 174/95; PULSE 89; RESP 20; TEMP 98.3; O2SAT 96
[2017-02-21] MEDS: SODIUM CHLORIDE 0.9% FLUSH 5 ML FLUSH IVF SCH ×2 (09:00→21:00)
[2017-02-21] MEDS: GABAPENTIN 400 MG CAP PO SCH ×3 (10:22→16:49)
[2017-02-21] MEDS: PANTOPRAZOLE SODIUM 40 MG VIAL IVP SCH (10:22)
[2017-02-21 12:00] VITALS: BP 168/93; PULSE 96; RESP 20; TEMP 97.9; O2SAT 95
--- NOTE | 2017-02-21 15:39 | HHI.PR ---
Subjective Remarks POD#3 s/p robotic sigmoid resection comfortable, wants to go home Objective Vital Signs Date Time Temp Pulse Resp B/P (MAP) Pulse Ox O2 Delivery O2 Flow Rate FiO2 02/21/17 12:00 97.9 96 20 168/93 (118) 95 02/21/17 08:00 98.3 89 20 174/95 (121) 96 02/21/17 05:06 18 02/21/17 00:00 97.7 82 17 151/88 (109) 95 02/20/17 20:00 99.2 101 17 157/86 (109) 94 02/20/17 19:48 18 02/20/17 19:40 18 02/20/17 16:49 97.1 108 20 153/99 (117) 96 I/O 02/20/17 02/20/17 02/20/17 02/21/17 02/21/17 02/21/17 06:59 14:59 22:59 06:59 14:59 22:59 Intake Total 240 ml 240 ml 120 ml Output Total 1500 ml 900 ml Balance -1260 ml -660 ml 120 ml Intake Oral 240 ml 240 ml 120 ml Output Urine Total 1500 ml 900 ml Result Diagram: 02/21/17 0431 02/21/17 0431 Objective Remarks Abdomen soft, nondistended, tender wounds clean Assessment and Plan Assessment and Plan Doing well BP slightly high, not clear why BP meds were stopped. Will restart and add Tania Garcia MD Feb 21, 2017 15:39
[2017-02-21 16:00] VITALS: BP 208/107; PULSE 107; RESP 20; TEMP 98.1; O2SAT 96
[2017-02-21] MEDS: FUROSEMIDE 20 MG/2 ML VIAL IV PUSH SCH (16:49)
[2017-02-21] MEDS: D5-NS + KCL 20 MEQ INJ 1,000 ML IV SCH (16:52)
[2017-02-21 17:49] VITALS: BP 159/91
[2017-02-21] MEDS: HYDROmorphone HCL PCA 6 MG/30 ML IV SCH (18:58)
[2017-02-21 20:00] VITALS: BP 177/96; PULSE 99; RESP 22; TEMP 98.7; O2SAT 96
[2017-02-21] MEDS ORDERED: REMOVE OLD DURAGESIC (FENTANYL) PATCH T-DERMAL SCH (20:00)
[2017-02-21] MEDS: METOPROLOL TARTRATE 100 MG TAB PO SCH (22:06)
[2017-02-21] MEDS: fentaNYL 25 MCG/HR PATCH T-DERMAL SCH (22:08)
[2017-02-22] VITALS: BP 167/89; PULSE 92; RESP 20; TEMP 98; O2SAT 95
[2017-02-22] MEDS: HEPARIN SODIUM - SQ 10,000 UNITS/ML VIAL SQ SCH (00:24)
[2017-02-22] MEDS: D5-NS + KCL 20 MEQ INJ 1,000 ML IV SCH (00:26)
[2017-02-22 04:00] VITALS: BP 168/95; PULSE 82; RESP 20; TEMP 97.9; O2SAT 95
[2017-02-22] MEDS: PCA - TOTAL MG DILAUDID DELIVERED PER SHIFT SCH (05:33)
[2017-02-22 08:00] VITALS: BP 160/100; PULSE 80; RESP 19; TEMP 97.6; O2SAT 96
[2017-02-22] MEDS: PANTOPRAZOLE SODIUM 40 MG VIAL IVP SCH (08:51)
[2017-02-22] MEDS: FUROSEMIDE 20 MG/2 ML VIAL IV PUSH SCH (08:51)
[2017-02-22] MEDS: METOPROLOL TARTRATE 100 MG TAB PO SCH (08:52)
[2017-02-22] MEDS: GABAPENTIN 400 MG CAP PO SCH (08:52)
[2017-02-22] MEDS: SODIUM CHLORIDE 0.9% FLUSH 5 ML FLUSH IVF SCH (08:52)
[2017-02-22] MEDS: HYDROmorphone HCL PCA 6 MG/30 ML IV SCH (09:01)
[2017-02-22 12:00] VITALS: BP 145/82; PULSE 86; RESP 19; TEMP 99; O2SAT 97
--- NOTE | 2017-02-22 13:17 | HHI.PR ---
Subjective Remarks POD#4 s/p robotic sigmoid resection comfortable, wants to go home Objective Vital Signs Date Time Temp Pulse Resp B/P (MAP) Pulse Ox O2 Delivery O2 Flow Rate FiO2 02/22/17 12:00 99.0 86 19 145/82 (103) 97 02/22/17 09:01 16 02/22/17 08:00 97.6 80 19 160/100 (120) 96 02/22/17 05:33 17 02/22/17 04:00 97.9 82 20 168/95 (119) 95 02/22/17 00:00 98.0 92 20 167/89 (115) 95 02/21/17 22:00 17 02/21/17 20:00 98.7 99 22 177/96 (123) 96 02/21/17 18:58 16 02/21/17 17:49 159/91 (113) 02/21/17 16:00 98.1 107 20 208/107 (140) 96 I/O 02/21/17 02/21/17 02/21/17 02/22/17 02/22/17 02/22/17 07:00 15:00 23:00 07:00 15:00 23:00 Intake Total 240 ml 120 ml 1991 ml 1480 ml 120 ml Output Total 900 ml 1300 ml 1700 ml Balance -660 ml 120 ml 691 ml -220 ml 120 ml Intake Oral 240 ml 120 ml 1000 ml 480 ml 120 ml IV Total 991 ml 1000 ml Output Urine Total 900 ml 1300 ml 1700 ml # Bowel Movements 1 0 Result Diagram: 02/21/17 04302/21/17 0431 Objective Remarks Abdomen soft, nondistended, tender wounds clean Assessment and Plan Assessment and Plan BP improved Home today with Tania Garay MD Feb 22, 2017 13:17
[2017-02-22] MEDS ORDERED: PERC7.5T13 PO (13:19)
--- NOTE | 2017-02-22 13:36 | MD ---
cc: ELIGIO FLORES M.D. ADMISSION DATE: 02/18/2017 DISCHARGE DATE: 02/22/2017 [place] Visit Search.Discharge Date ADMISSION DIAGNOSES 1. Diverticulitis 2. Colovesical fistula. DISCHARGE DIAGNOSES 1. Diverticulitis 2. Colovesical fistula. PROCEDURES 3. Cystoscopy with placement of left ureteral catheter. 4. Robotic sigmoid resection. 5. Repair of bladder. HOSPITAL COURSE The patient is a 52-year-old male who had severe diverticulitis with the development of colovesical fistula earlier this year. He was admitted to the hospital on February 18, 2017, after an outpatient bowel prep. He was taken to the operating room where he underwent the above-named procedures. Postoperatively he had rapid return of bowel and bladder function. He was discharged to home on postop day #4 with instructions to follow up with myself in the office. Final pathology was not available at the time of discharge. MD JOANNA Hoover/ELIAN /1:20 PM /1:31 PM MTDShazia
== END 2017-02-22 15:37 | disposition home or self-care (01) | DRG 330 ==
LOC: HSDI 06:32 → HCIN 15:46 → N07B 02-19 22:59
PROVIDERS: ADMIT Colon & Rectal Surgery; ATTEND Colon & Rectal Surgery
PROC: 0TQB4ZZ Repair Bladder, Percutaneous Endoscopic Approach (ICD-10-PCS; 2017-02-18)
PROC: 8E0W4CZ Robotic Assisted Procedure of Trunk Region, Percutaneous Endoscopic Approach (ICD-10-PCS; 2017-02-18)
PROC: 0T9780Z Drainage of Left Ureter with Drainage Device, Via Natural or Artificial Opening Endoscopic (ICD-10-PCS; 2017-02-18)
PROC: 0DTN0ZZ Resection of Sigmoid Colon, Open Approach (ICD-10-PCS; principal; 2017-02-18 08:17)
PROC: 0DBP4ZZ Excision of Rectum, Percutaneous Endoscopic Approach (ICD-10-PCS; 2017-02-18 08:17)
DX: K57.32 Diverticulitis of large intestine without perforation or abscess without bleeding (principal); N32.1 Vesicointestinal fistula; I10 Essential (primary) hypertension; G47.30 Sleep apnea, unspecified
CPT/HCPCS: 80048; 85025; 86850; 86900; 86901; 88307; 94150; C1769; C9113; J0131; J0690; J1100; J1170; J1644; J1885; J1940; J2250; J2270; J2370; J2405; J3010; J3480; J7120